=== PATIENT | female | born 1935 | race Caucasian/White ===

== ENCOUNTER 2017-01-14 09:40 | Emergency (ER) | payer MEDICARE, MEDICAID ==
[~2017-01-14] VITALS: Ht 165.1 cm; Wt 111.1 kg
[~2017-01-14 09:40] MED LIST: AMLODIPINE BES10 MG PO; BACTRIM DS 8001 TA1 PO; CIPRO 500MG TA500 MG PO; COUMADIN2.5 MG PO; DIAZEPAM5 M1 PO; FLAGYL 500MG.500 MG PO; FUROSEMIDE 20MG20 MG PO; GLIPIZIDE5 MG PO; HYDROCHLOROTHIA25 M1 PO; JANUVIA100 MG PO; LABETALOL200 MG PO; LEVOTHYROXINE0.1 MG PO; LISINOPRIL20 MG PO; MEDROL 4MG. DOSE4 MG PO; NIFEDICAL XL60 MG PO; OMEPRAZOLE20 MG PO; WARFARIN SODIUM3 MG PO; ZITHROMAX Z PA250 MG PO
--- OUTSIDE RECORDS SUMMARY | 2017-01-14 10:07 | External Medical Summary Rpt ---
Author Author , Organization [employer] Address Unknown Phone Unavailable Care Team Providers Care Wax Molder Name Role Phone A Joshua DUNN MD [facility], A Unavailable Unavailable Joshua DUNN MD P[facility], Unavailable Unavailable [facility], Unavailable Unavailable [facility], Unavailable Unavailable [facility] Unavailable Unavailable [facility], [facility] LEYDI ABDIRASHID, LEYDI ABDIRASHID Unavailable Unavailable SHANTELL HOLLEY, Unavailable Unavailable SHANTELL HOLLEY KIMBERLY V, Unavailable Unavailable MARÍA BALDERAS ROLANDO, Unavailable Unavailable ESTUARDO STEARNS [facility] Unavailable [facility], [facility] Unavailable Unavailable LAB, [facility] Unavailable Unavailable PSC, [facility] CROSSFIELD, DANNITA, Unavailable Unavailable CROSSFIELD, DANNITA SU [facility], Unavailable Unavailable SU N[facility], Unavailable Unavailable SU [facility] Unavailable Unavailable [facility] Unavailable Unavailable [facility], [facility] Unavailable Unavailable [facility] DO[facility] DI[facility] Unavailable Unavailable [facility], DOCTOR DI[facility], [facility] Unavailable Unavailable ANGELINE GUILLERMO, ANGELINE Unavailable Unavailable GUILLERMO NELSON NIÑO Unavailable Unavailable [facility] Un[facility], [facility] Unavailable Unavailable H[facility]PITAL P, [facility] P SABINA FAYE, Unavailable Unavailable SABINA FAYE CHARLES M, Unavailable Unavailable SON SHER KILPELA JEA, KILPELA Unavailable Unavailable JEA MOURA NEENA, MOURA Unavailable Unavailable NEENA MOURA NEENA, MOURA Unavailable Unavailable NEENA MYRNA WINTER E, Unavailable Unavailable MYRNA WINTER [facility] Unavailable [facility] Unavailable Unavailable [facility], [facility], Unavailable Unavailable [facility] MCKEMIE JR ANDREE, Unavailable Unavailable MCKEMIE JR ANDREE LITA RANDALL P, Unavailable Unavailable LITA RANDALL P JEFFREY ELLY, JEFFREY ELLY Unavailable Unavailable JEFFREY ELLY, JEFFREY ELLY Unavailable Unavailable [facility] Unavailable Unavailable PSC, [facility] PSC SARAH FIGUEROA, Unavailable Unavailable SARAH FIGUEROA DAVID J, Unavailable Unavailable [facility], Unavailable Unavailable [facility], [facility] & Unavailable Unavailable [facility], [facility], Unavailable Unavailable [facility], Unavailable Unavailable [facility] INDIO ABDIRASHID, INDIO Unavailable Unavailable ABDIRASHID [id number], Unavailable Unavailable [id number] Unavailable Unavailable [id number] [address] [id number], [facility] [id number] [address] [id number] [facility] Unavailable Unavailable 3938, [facility]38 SADEK, SADEK Unavailable Unavailable [facility]ART Unavailable Unavailable [facility] Unavailable Unavailable [facility] SOKAN, SHOSHANA O, Unavailable Unavailable SOKAN, SHOSHANA O [facility] Unavailable Unavailable [facility] LEXIE SERNA, Unavailable Unavailable LEXIE SERNA FREDDIE L, Unavailable Unavailable [facility] Un[facility], [facility] Unavailable Unavailable JAYLEN, A D, Unavailable Unavailable JAYLEN, A D Purpose Continuity of Care Document - 10-29-2007 through 2016 Problems Code Diagnosis DOS Provider Status E119 TYPE 2 08-11-2016 [facility] MELL[facility] WITHOUT COMPLICATIO NS N3000 ACUTE 08-11-2016 [facility] WITHOUT INC HEMATURIA N390 URINARY 08-11-2016 [facility], INFECTION [facility] SITE NOT SPECIFIED R319 HEMATURIA 08-11-2016 [facility] E1165 TYPE 2 04-22-2016 Sam DUNN DIABETES PSC MELLITUS WITH HYPERGLYCEM IA I10 ESSENTIAL 04-22-2016 Sam DUNN PRIMARY PSC HYPERTENSIO N Z5181 ENCOUNTER 04-22-2016 Sam DUNN FOR PSC THERAPEUTIC DRUG LEVEL MONITORING Z7901 GROUP HOME 04-22-2016 Sam DUNN CURRENT USE PSC OF ANTICOAGULA NTS E1149 TYPE 2 01-25-2016 A Joshua DUNN DIABETES PSC MELLITUS W/OTH DIAB NEURO COMP I482 CHRONIC 01-25-2016 A Joshua DUNN ATRIAL PSC FIBRILLATIO N E039 HYPOTHYROID 10-30-2015 A Joshua JONES MD PSC UNSPECIFIED V5869 LONG-TERM 04-28-2015 A Joshua DUNN (CURRENT) PSC USE OF OTHER MEDICATIONS V5883 ENCOUNTER 04-28-2015 A Joshua LEARY MD PSC THERAPEUTIC DRUG MONITORING 30788 DIAB W/O 04-14-2015 A Joshua DALTON MD PSC COMP TYPE II/UNS TYPE UNCNTRL 20587 DIAB W/O 03-30-2015 ALL COMP TYPE [facility] II/UNS NOT MEDICAL STATED UNCNTRL 29018 HYPERCALCEM 01-08-2015 [facility] P 90743 ABDOMINAL 01-08-2015 [facility] PAIN OTHER [facility] P SITE 84178 ABNORMAL 01-08-2015 [facility] COAGULATION [facility] P 7881 DYSURIA 08-25-2014 A Joshua DUNN MD PSC V5861 LONG-TERM 08-25-2014 A Joshua DUNN (CURRENT) PSC USE OF ANTICOAGULA NTS 72596 DIAB 09-27-2013 JEFFREY ELLY W/NEURO MANIFESTS TYPE II/UNS TYPE UNCNTRL 2720 PURE 09-27-2013 JEFFREY SANABRIA HYPERCHOLES TEROLEMIA 4011 ESSENTIAL 09-27-2013 JEFFREY SANABRIA HYPERTENSIO N, BENIGN 2449 UNSPECIFIED 05-30-2013 A Joshua DUNN MD PSC HYPOTHYROID ISM 17518 UNSPECIFIED 04-11-2013 MOURA NEENA INFECTIVE OTITIS EXTERNA 470 DEVIATED 04-11-2013 MOURA NEENA NASAL SEPTUM 92605 ATRIAL 11-29-2012 A Joshua DUNN FIBRILLNIKHILO PSC N 52318 DIVERTICULO 11-14-2012 SU SIS OF NANCY COLON 37217 DIVERTICULI 11-14-2012 [facility] TIS OF [facility] COLON INC 5718 OTHER 11-14-2012 SU CHRONIC NANCY NONALCOHOLI C LIVER DISEASE 5932 ACQUIRED 11-14-2012 SU CYST OF NANCY KIDNEY 96407 NUCLEAR 12-29-2011 DAT SCLEROSIS GRE 37942 UNSPECIFIED 12-29-2011 DAT SUBJECTIVE GRE VISUAL DISTURBANCE 63710 OTHER 12-29-2011 DAT VISUAL GRE DISTORTIONS AND ENTOPTIC PHENOMENA 42169 VAGINITIS&V 12-20-2011 JEFF[facility]Y ELLY ULVOVAGINIT IS DISEASES CLASS ELSW 33409 SECONDARY 11-22-2011 PODIATRIC LOCALIZED FOOT & OSTEOARTHRO ANKLE SPECI SIS LOWER LEG 87168 PAIN IN 11-22-2011 PODIATRIC JOINT, SITE FOOT & ANKLE SPECI UNSPECIFIED 79105 PAIN IN 11-22-2011 PODIATRIC JOINT, FOOT & LOWER LEG ANKLE SPECI 7291 UNSPECIFIED 11-22-2011 PODIATRIC MYALGIA FOOT & AND ANKLE SPECI MYOSITIS V0481 NEED 06-08-2011 A Joshua DUNN PROPHYLACTI PSC C VACCINATION &INOCULATIO N FLU 5999 UNSPECIFIED 05-31-2011 [facility] URETHRA&URI NARY TRACT 26306 URINARY 05-31-2011 [facility] 5990 URINARY 04-08-2011 A Joshua DUNN TRACT PSC INFECTION SITE NOT SPECIFIED V4365 KNEE JOINT 01-04-2011 [facility] BY OTHER MEDICAL MEANS [facility] 2724 OTHER AND 12-23-2010 A Joshua VEEIFIED PSC HYPERLIPIDE DANA 4019 UNSPECIFIED 12-23-2010 A Joshua DUNN ESSENTIAL PSC HYPERTENSIO N 5368 DYSPEPSIA&O 12-23-2010 A Joshua DUNN THER SPEC PSC DISORDERS FUNCTION STOMACH 1890 MALIGNANT 11-01-2010 NEW NEOPLASM OF [place] [facility] PSC EXCEPT PELVIS 7962 ELEVATED BP 09-09-2010 [facility] WITHOUT DX INC HYPERTENSIO N 72071 DIAB W/O 04-24-2010 [facility] COMP TYPE I MEDICAL [JUV] NOT SUPPLY STATED UNCNTRL 92457 DIVERTICULO 09-30-2009 [facility] [place] SIS OF RADIOLOGY SMALL INTESTINE 591 HYDRONEPHRO 09-30-2009 [facility]OLOG[facility] PSC 4280 CONGESTIVE 08-06-2009 [facility] P[facility] UNSPECIFIED 89608 OSTEOARTHRO 08-06-2009 [facility] UNSPEC L REHAB WHETHER ASSOC PSC GEN/LOC LOWER LEG 4168 OTHER 08-05-2009 NEW CHRONIC [place] [facility] HEART DISEASES 4660 ACUTE 07-29-2009 FIGUEROA, BRONCHITIS SARAH A 03661 HEMARTHROSI 03-27-2009 [facility] S, [facility] LEG INC 490 BRONCHITIS 02-24-2009 DAT NOT EMERGENCY SPECIFIED SERVICES ACUTE OR ASSOCIATES CHRONIC 00040 SHORTNESS 02-24-2009 [facility]ICAL IMAGING [facility] 7906 OTHER 01-13-2009 [facility] ABNORMAL [facility] BLOOD INC CHEMISTRY 04140 OTHER 12-09-2008 FAYE, VITREOUS SABINA A OPACITIES 5939 UNSPECIFIED 08-13-2008 [facility] [place] DISORDER RADIOLOGY OF KIDNEY AND URETER 58308 NOCTURIA 08-13-2008 [facility] H UROLOGY PSC 26233 URGENCY OF 08-13-2008 [facility] URINATION H UROLOGY PSC V4589 OTHER 08-13-2008 [facility] [place] POSTSURGICA RADIOLOGY L STATUS OTHER 18632 COR 02-07-2008 [facility] TYPE [facility] [place] T [address] CYSTITIS 02-07-2008 [facility] 69706 OTHER 02-07-2008 [facility] SPE[facility]IFIED PATHOLOGY TYPES OF ASSOCIATES CYSTITIS V1053 PERSONAL 02-07-2008 [facility] RENAL PELVIS 19051 CORONARY 01-30-2008 [facility] CORONARY PROF SERV ARTERY V1052 PERSONAL 01-23-2008 [facility] [place] HISTORY OF RADIOLOGY MALIGNANT NEOPLASM OF KIDNEY Allergies, Adverse Reactions, Alerts Type Allergy to substance Adverse Reaction to Substance Substance Reaction Severity NO KNOWN ALLERGIES Unknown Unknown Clinical Alert Notifications Alert Diabetes: no A1C in the last 6 months Diabetes: no eye exam in the last 365 days Diabetes: no influenza vaccine in the last 365 days Medications Na ND Rx Da Fi Fi Am Da Di Ph RX Ph St me C No te ll ll ou ys ag ar # ys at rm s nt no ma ic us Or Da si cy ia de te s n re d Le 51 03 0 No vo 07 -1 fl 90 3- Lo ox 03 20 ng ac 52 13 er in 0 Ac 50 ti 0M ve G Ta bl et Me 63 03 0 No tr 73 -1 on 90 3- Lo id 17 20 ng az 61 13 er ol 0 e Ac 50 ti 0M ve G Ta bl et AC 51 03 0 No ET 07 -1 AM 90 3- Lo IN 16 20 ng OP 19 13 er HE 9H N Ac W/ ti CO ve DE IN E #3 TA K DI 00 05 10 5 12 30 RI 88 MO Ac AZ 17 -0 -0 0. TE 20 SE ti EP 23 5- 9- 00 78 S ve AM [address] 5 67 11 11 D EP 0 PH HE MG AR N MA A TA CY BL ET 03 93 8 # 03 93 DI 00 05 09 5 12 30 RI 88 MO Ac AZ 17 -0 -0 0. TE 20 SE ti EP 23 5- 8- 00 78 S ve AM 92 [address] 5 67 11 11 D EP 0 PH HE MG AR N MA A TA CY BL ET 03 93 8 # 03 93 DI 00 05 08 5 12 30 RI 88 MO Ac AZ 17 -0 -0 0. TE 20 SE ti EP 23 5- 8- 00 78 S ve AM 92 [address] 5 67 11 11 D EP 0 PH HE MG AR N MA A TA CY BL ET 03 93 8 # 03 93 DI 00 05 07 5 12 30 RI 88 MO Ac AZ 17 -0 -0 0. TE 20 SE ti EP 23 5- 8- 00 78 S ve AM 92 [address] 5 67 11 11 D EP 0 PH HE MG AR N MA A TA CY BL ET 03 93 8 # 03 93 DI 00 05 06 5 12 30 RI 88 MO Ac AZ 17 -0 -0 0. TE 20 SE ti EP 23 5- 6- 00 78 S ve AM 92 [address] 5 67 11 11 D EP 0 PH HE MG AR N MA A TA CY BL ET 03 93 8 # 03 93 DI 00 05 05 5 12 30 RI 88 MO Ac AZ 17 -0 -0 0. TE 20 SE ti EP 23 5- 5- 00 78 S ve AM 92 [address] 5 67 11 11 D EP 0 PH HE MG AR N MA A TA CY BL ET 03 93 8 # 03 93 DI 00 04 04 60 15 RI 87 NI Ac AZ 17 -1 -2 .0 TE 97 CH ti EP 23 8- 0- 00 28 OL ve AM 92 20 20 AI S 5 67 11 11 D JENNIFER 0 PH E MG AR A MA TA CY BL ET 03 93 8 # 03 93 DI 00 04 04 60 15 RI 87 NI Ac AZ 17 -0 -0 .0 TE 77 CH ti EP 23 4- 5- 00 76 OL ve AM 92 20 20 AI S 5 67 11 11 D JENNIFER 0 PH E MG AR A MA TA CY BL ET 03 93 8 # 03 93 DI 00 03 03 60 15 RI 87 NI Ac AZ 17 -2 -2 .0 TE 60 CH ti EP 23 2- 2- 00 65 OL ve AM 92 20 20 AI S 5 67 11 11 D JENNIFER 0 PH E MG AR A MA TA CY BL ET 03 93 8 # 03 93 DI 00 03 03 60 15 RI 87 NI Ac AZ 17 -0 -0 .0 TE 37 CH ti EP 23 7- 8- 00 75 OL ve AM 92 20 20 AI S 5 67 11 11 D JENNIFER 0 PH E MG AR A MA TA CY BL ET 03 93 8 # 03 93 DI 00 02 02 60 15 RI 87 NI Ac AZ 17 -2 -2 .0 TE 17 CH ti EP 23 2- 2- 00 40 OL ve AM 92 20 20 AI S 5 67 11 11 D JENNIFER 0 PH E MG AR A MA TA CY BL ET 03 93 8 # 03 93 DI 00 02 02 60 15 RI 86 NI Ac AZ 17 -0 -0 .0 TE 95 CH ti EP 23 7- 7- 00 91 OL ve AM 92 20 20 AI S 5 67 11 11 D JENNIFER 0 PH E MG AR A MA TA CY BL ET 03 93 8 # 03 93 DI 00 01 01 60 15 RI 86 NI Ac AZ 17 -2 -2 .0 TE 76 CH ti EP 23 4- 4- 00 38 OL ve AM 92 20 20 AI S 5 67 11 11 D JENNIFER 0 PH E MG AR A MA TA CY BL ET 03 93 8 # 03 93 DI 00 01 01 60 15 RI 86 NI Ac AZ 17 -0 -1 .0 TE 55 CH ti EP 23 7- 0- 00 11 OL ve AM 92 20 20 AI S 5 67 11 11 D JENNIFER 0 PH E MG AR A MA TA CY BL ET 03 93 8 # 03 93 DI 00 12 12 60 15 RI 86 NI Ac AZ 17 -2 -2 .0 TE 38 CH ti EP 23 7- 7- 00 04 OL ve AM 92 20 20 AI S 5 67 10 10 D JENNIFER 0 PH E MG AR A MA TA CY BL ET 03 93 8 # 03 93 DI 00 12 12 60 15 RI 86 NI Ac AZ 17 -0 -0 .0 TE 12 CH ti EP 23 7- 7- 00 61 OL ve AM 92 20 20 AI S 5 67 10 10 D JENNIFER 0 PH E MG AR A MA TA CY BL ET 03 93 8 # 03 93 DI 00 11 11 60 15 RI 85 NI Ac AZ 17 -2 -2 .0 TE 93 CH ti EP 23 3- 3- 00 66 OL ve AM 92 20 20 AI S 5 67 10 10 D JENNIFER 0 PH E MG AR A MA TA CY BL ET 03 93 8 # 03 93 DI 00 11 11 60 15 RI 85 NI Ac AZ 17 -0 -0 .0 TE 74 CH ti EP 23 9- 9- 00 37 OL ve AM 92 20 20 AI S 5 67 10 10 D JENNIFER 0 PH E MG AR A MA TA CY BL ET 03 93 8 # 03 93 DI 00 10 10 60 15 RI 85 NI Ac AZ 17 -2 -2 .0 TE 52 CH ti EP 23 5- 5- 00 73 OL ve AM 92 20 20 AI S 5 67 10 10 D JENNIFER 0 PH E MG AR A MA TA CY BL ET 03 93 8 # 03 93 00 10 10 60 15 RI 85 NI Ac 55 -0 -0 .0 TE 32 CH ti 50 8- 8- 00 19 OL ve 36 20 20 AI S 30 10 10 D JENNIFER 2 PH E AR A MA CY 03 93 8 # 03 93 DI 00 09 09 60 15 RI 85 NI Ac AZ 17 -2 -2 .0 TE 13 CH ti EP 23 4- 4- 00 01 OL ve AM 92 20 20 AI S 5 67 10 10 D JENNIFER 0 PH E MG AR A MA TA CY BL ET 03 93 8 # 03 93 DI 00 09 09 60 15 RI 84 NI Ac AZ 17 -1 -1 .0 TE 92 CH ti EP 23 0- 0- 00 47 OL ve AM 92 20 20 AI S 5 67 10 10 D JENNIFER 0 PH E MG AR A MA TA CY BL ET 03 93 8 # 03 93 DI 00 08 08 60 15 RI 84 NI Ac AZ 17 -2 -2 .0 TE 67 CH ti EP 23 3- 3- 00 19 OL ve AM 92 20 20 AI S 5 67 10 10 D JENNIFER 0 PH E MG AR A MA TA CY BL ET 03 93 8 # 03 93 DI 00 08 08 60 15 RI 84 NI Ac AZ 17 -1 -1 .0 TE 50 CH ti EP 23 0- 0- 00 29 OL ve AM 92 20 20 AI S 5 67 10 10 D JENNIFER 0 PH E MG AR A MA TA CY BL ET 03 93 8 # 03 93 DI 00 07 07 60 15 RI 84 NI Ac AZ 17 -2 -2 .0 TE 32 CH ti EP 23 7- 7- 00 51 OL ve AM 92 20 20 AI S 5 67 10 10 D JENNIFER 0 PH E MG AR A MA TA CY BL ET 03 93 8 # 03 93 DI 00 07 07 60 15 RI 84 NI Ac AZ 17 -1 -1 .0 TE 16 CH ti EP 23 4- 4- 00 85 OL ve AM 92 20 20 AI S 5 67 10 10 D JENNIFER 0 PH E MG AR A MA TA CY BL ET 03 93 8 # 03 93 DI 00 06 06 60 15 RI 84 NI Ac AZ 17 -3 -3 .0 TE 00 CH ti EP 23 0- 0- 00 24 OL ve AM 92 20 20 AI S 5 67 10 10 D JENNIFER 0 PH E MG AR A MA TA CY BL ET 03 93 8 # 03 93 DI 00 06 06 60 15 RI 83 NI Ac AZ 17 -1 -1 .0 TE 80 CH ti EP 23 5- 5- 00 74 OL ve AM 92 20 20 AI S 5 67 10 10 D JENNIFER 0 PH E MG AR A MA TA CY BL ET 03 93 8 # 03 93 DI 00 06 06 60 15 RI 83 NI Ac AZ 17 -0 -0 .0 TE 61 CH ti EP 23 1- 1- 00 79 OL ve AM 92 20 20 AI S 5 67 10 10 D JENNIFER 0 PH E MG AR A MA TA CY BL ET 03 93 8 # 03 93 DI 00 05 05 60 15 RI 83 NI Ac AZ 17 -1 -1 .0 TE 41 CH ti EP 23 7- 7- 00 72 OL ve AM 92 20 20 AI S 5 67 10 10 D JENNIFER 0 PH E MG AR A MA TA CY BL ET 03 93 8 # 03 93 DI 00 05 05 60 15 RI 83 NI Ac AZ 17 -0 -0 .0 TE 22 CH ti EP 23 3- 3- 00 88 OL ve AM 92 20 20 AI S 5 67 10 10 D JENNIFER 0 PH E MG AR A MA TA CY BL ET 03 93 8 # 03 93 DI 00 04 04 60 15 RI 83 NI Ac AZ 17 -1 -1 .0 TE 02 CH ti EP 23 7- 7- 00 51 OL ve AM 92 20 20 AI S 5 67 10 10 D JENNIFER 0 PH E MG AR A MA TA CY BL ET 03 93 8 # 03 93 DI 00 04 04 60 15 RI 82 NI Ac AZ 17 -0 -0 .0 TE 81 CH ti EP 23 2- 2- 00 75 OL ve AM 92 20 20 AI S 5 67 10 10 D JENNIFER 0 PH E MG AR A MA TA CY BL ET 03 93 8 # 03 93 DI 00 03 03 60 15 RI 82 NI Ac AZ 17 -1 -1 .0 TE 61 CH ti EP 23 9- 9- 00 48 OL ve AM 92 20 20 AI S 5 67 10 10 D JENNIFER 0 PH E MG AR A MA TA CY BL ET 03 93 8 # 03 93 DI 00 03 03 60 15 RI 82 NI Ac AZ 17 -0 -0 .0 TE 37 CH ti EP 23 3- 3- 00 41 OL ve AM 92 20 20 AI S 5 67 10 10 D JENNIFER 0 PH E MG AR A MA TA CY BL ET 03 93 8 # 03 93 DI 00 02 02 00 60 15 RI 82 NI Ac AZ 17 -1 -2 .0 TE 17 CH ti EP 23 7- 6- 00 46 OL ve AM 92 20 20 AI S 5 67 10 10 D JENNIFER 0 PH E MG AR A M TA #3 BL 93 ET 8 DI 00 02 02 00 60 15 RI 81 NI Ac AZ 17 -0 -1 .0 TE 95 CH ti EP 23 1- 1- 00 85 OL ve AM 92 20 20 AI S 5 67 10 10 D JENNIFER 0 PH E MG AR A M TA #3 BL 93 ET 8 DI 00 01 01 00 60 15 RI 81 NI Ac AZ 17 -1 -2 .0 TE 76 CH ti EP 23 8- 8- 00 82 OL ve AM 92 20 20 AI S 5 67 10 10 D JENNIFER 0 PH E MG AR A M TA #3 BL 93 ET 8 DI 00 01 01 00 60 15 RI 81 NI Ac AZ 17 -0 -1 .0 TE 57 CH ti EP 23 4- 4- 00 16 OL ve AM 92 20 20 AI S 5 67 10 10 D JENNIFER 0 PH E MG AR A M TA #3 BL 93 ET 8 DI 00 12 12 00 60 15 RI 81 NI Ac AZ 17 -2 -3 .0 TE 40 CH ti EP 23 1- 1- 00 93 OL ve AM 92 20 20 AI S 5 67 09 09 D JENNIFER 0 PH E MG AR A M TA #3 BL 93 ET 8 DI 00 12 12 00 60 15 RI 81 NI Ac AZ 17 -0 -1 .0 TE 20 CH ti EP 23 7- 7- 00 69 OL ve AM 92 20 20 AI S 5 67 09 09 D JENNIFER 0 PH E MG AR A M TA #3 BL 93 ET 8 DI 00 11 12 00 60 15 RI 80 NI Ac AZ 17 -2 -0 .0 TE 99 CH ti EP 23 3- 3- 00 74 OL ve AM 92 20 20 AI S 5 67 09 09 D JENNIFER 0 PH E MG AR A M TA #3 BL 93 ET 8 DI 00 11 11 00 60 15 RI 80 NI Ac AZ 17 -0 -1 .0 TE 76 CH ti EP 23 7- 9- 00 27 OL ve AM 92 20 20 AI S 5 67 09 09 D JENNIFER 0 PH E MG AR A M TA #3 BL 93 ET 8 DI 00 10 11 00 60 15 RI 80 NI Ac AZ 17 -2 -0 .0 TE 55 CH ti EP 23 4- 5- 00 98 OL ve AM 92 20 20 AI S 5 67 09 09 D JENNIFER 0 PH E MG AR A M TA #3 BL 93 ET 8 DI 00 10 10 00 60 15 RI 80 NI Ac AZ 17 -0 -2 .0 TE 35 CH ti EP 23 9- 2- 00 02 OL ve AM 92 20 20 AI S 5 67 09 09 D JENNIFER 0 PH E MG AR A M TA #3 BL 93 ET 8 DI 00 09 10 00 60 15 RI 80 NI Ac AZ 17 -2 -0 .0 TE 15 CH ti EP 23 5- 8- 00 39 OL ve AM 92 20 20 AI S 5 67 09 09 D JENNIFER 0 PH E MG AR A M TA #3 BL 93 ET 8 DI 00 09 09 00 60 15 RI 79 NI Ac AZ 17 -0 -2 .0 TE 91 CH ti EP 23 9- 4- 00 05 OL ve AM 92 20 20 AI S 5 67 09 09 D JENNIFER 0 PH E MG AR A M TA #3 BL 93 ET 8 DI 00 08 09 00 60 15 RI 79 NI Ac AZ 17 -2 -1 .0 TE 72 CH ti EP 23 6- 0- 00 38 OL ve AM 92 20 20 AI S 5 67 09 09 D JENNIFER 0 PH E MG AR A M TA #3 BL 93 ET 8 DI 00 08 08 00 60 15 RI 79 NI Ac AZ 17 -1 -2 .0 TE 53 CH ti EP 23 2- 7- 00 18 OL ve AM 92 20 20 AI S 5 67 09 09 D JENNIFER 0 PH E MG AR A M TA #3 BL 93 ET 8 DI 00 07 08 00 60 15 RI 79 NI Ac AZ 17 -2 -1 .0 TE 36 CH ti EP 23 9- 3- 00 61 OL ve AM 92 20 20 AI S 5 67 09 09 D JENNIFER 0 PH E MG AR A M TA #3 BL 93 ET 8 DI 00 07 07 00 60 15 RI 79 NI Ac AZ 17 -1 -3 .0 TE 19 CH ti EP 23 5- 0- 00 99 OL ve AM 92 20 20 AI S 5 67 09 09 D JENNIFER 0 PH E MG AR A M TA #3 BL 93 ET 8 DI 00 07 07 00 60 15 RI 79 NI Ac AZ 17 -0 -1 .0 TE 02 CH ti EP 23 1- 6- 00 64 OL ve AM 92 20 20 AI S 5 67 09 09 D JENNIFER 0 PH E MG AR A M TA #3 BL 93 ET 8 DI 00 06 07 00 60 15 RI 78 NI Ac AZ 17 -1 -0 .0 TE 86 CH ti EP 23 7- 2- 00 48 OL ve AM 92 20 20 AI S 5 67 09 09 D JENNIFER 0 PH E MG AR A M TA #3 BL 93 ET 8 DI 00 06 06 00 60 15 RI 78 NI Ac AZ 17 -0 -1 .0 TE 64 CH ti EP 23 1- 8- 00 39 OL ve AM 92 20 20 AI S 5 67 09 09 D JENNIFER 0 PH E MG AR A M TA #3 BL 93 ET 8 DI 00 05 06 00 60 15 RI 78 NI Ac AZ 17 -1 -0 .0 TE 46 CH ti EP 23 8- 4- 00 12 OL ve AM 92 20 20 AI S 5 67 09 09 D JENNIFER 0 PH E MG AR A M TA #3 BL 93 ET 8 DI 00 05 05 00 60 15 RI 78 NI Ac AZ 17 -0 -2 .0 TE 26 CH ti EP 23 4- 1- 00 64 OL ve AM 92 20 20 AI S 5 67 09 09 D JENNIFER 0 PH E MG AR A M TA #3 BL 93 ET 8 DI 00 04 05 00 60 15 RI 78 NI Ac AZ 17 -2 -0 .0 TE 06 CH ti EP 23 0- 7- 00 54 OL ve AM 92 20 20 AI S 5 67 09 09 D JENNIFER 0 PH E MG AR A M TA #3 BL 93 ET 8 DI 00 04 04 00 60 15 RI 77 NI Ac AZ 17 -0 -2 .0 TE 88 CH ti EP 23 7- 3- 00 14 OL ve AM 92 20 20 AI S 5 67 09 09 D JENNIFER 0 PH E MG AR A M TA #3 BL 93 ET 8 DI 00 03 04 00 60 15 RI 77 NI Ac AZ 17 -2 -0 .0 TE 66 CH ti EP 23 3- 9- 00 30 OL ve AM 92 20 20 AI S 5 67 09 09 D JENNIFER 0 PH E MG AR A M TA #3 BL 93 ET 8 DI 00 03 03 00 60 15 RI 77 NI Ac AZ 17 -0 -1 .0 TE 39 CH ti EP 23 6- 2- 00 74 OL ve AM 92 20 20 AI S 5 67 09 09 D JENNIFER 0 PH E MG AR A M TA #3 BL 93 ET 8 DI 00 02 02 00 60 15 RI 77 NI Ac AZ 17 -1 -2 .0 TE 11 CH ti EP 23 6- 6- 00 47 OL ve AM 92 20 20 AI S 5 67 09 09 D JENNIFER 0 PH E MG AR A M TA #3 BL 93 ET 8 DI 00 02 02 00 60 15 RI 76 NI Ac AZ 17 -0 -1 .0 TE 91 CH ti EP 23 2- 2- 00 89 OL ve AM 92 20 20 AI S 5 67 09 09 D JENNIFER 0 PH E MG AR A M TA #3 BL 93 ET 8 DI 00 01 01 00 60 15 RI 76 NI Ac AZ 17 -2 -3 .0 TE 76 CH ti EP 23 0- 0- 00 47 OL ve AM 92 20 20 AI S 5 67 09 09 D JENNIFER 0 PH E MG AR A M TA #3 BL 93 ET 8 DI 00 01 01 00 60 15 RI 76 NI Ac AZ 17 -0 -1 .0 TE 55 CH ti EP 23 6- 5- 00 51 OL ve AM 92 20 20 AI S 5 67 09 09 D JENNIFER 0 PH E MG AR A M TA #3 BL 93 ET 8 DI 00 12 01 00 60 15 RI 76 NI Ac AZ 17 -2 -0 .0 TE 38 CH ti EP 23 3- 1- 00 32 OL ve AM 92 20 20 AI S 5 67 08 09 D JENNIFER 0 PH E MG AR A M TA #3 BL 93 ET 8 DI 00 12 12 00 60 15 RI 76 NI Ac AZ 17 -1 -1 .0 TE 19 CH ti EP 23 0- 8- 00 23 OL ve AM 92 20 20 AI S 5 67 08 08 D JENNIFER 0 PH E MG AR A M TA #3 BL 93 ET 8 DI 00 11 12 00 60 15 RI 75 NI Ac AZ 17 -2 -0 .0 TE 97 CH ti EP 23 5- 4- 00 02 OL ve AM 92 20 20 AI S 5 67 08 08 D JENNIFER 0 PH E MG AR A M TA #3 BL 93 ET 8 DI 00 11 11 00 60 15 RI 75 NI Ac AZ 17 -1 -2 .0 TE 77 CH ti EP 23 1- 0- 00 24 OL ve AM 92 20 20 AI S 5 67 08 08 D JENNIFER 0 PH E MG AR A M TA #3 BL 93 ET 8 DI 00 10 11 00 60 15 RI 75 NI Ac AZ 17 -2 -0 .0 TE 52 CH ti EP 23 4- 7- 00 84 OL ve AM 92 20 20 AI S 5 67 08 08 D JENNIFER 0 PH E MG AR A M TA #3 BL 93 ET 8 DI 00 10 10 00 60 15 RI 75 NI Ac AZ 17 -1 -2 .0 TE 36 CH ti EP 23 3- 3- 00 60 OL ve AM 92 20 20 AI S 5 67 08 08 D JENNIFER 0 PH E MG AR A M TA #3 BL 93 ET 8 DI 00 09 10 00 60 15 RI 75 NI Ac AZ 17 -2 -0 .0 TE 18 CH ti EP 23 9- 9- 00 05 OL ve AM 92 20 20 AI S 5 67 08 08 D JENNIFER 0 PH E MG AR A M TA #3 BL 93 ET 8 DI 00 09 09 00 60 15 RI 74 NI Ac AZ 17 -1 -2 .0 TE 96 CH ti EP 23 5- 6- 00 80 OL ve AM 92 20 20 AI S 5 67 08 08 D JENNIFER 0 PH E MG AR A M TA #3 BL 93 ET 8 DI 00 09 09 00 60 15 RI 74 NI Ac AZ 17 -0 -1 .0 TE 79 CH ti EP 23 2- 1- 00 44 OL ve AM 92 20 20 AI S 5 67 08 08 D JENNIFER 0 PH E MG AR A M TA #3 BL 93 ET 8 DI 00 08 08 00 60 15 RI 74 NI Ac AZ 17 -1 -2 .0 TE 57 CH ti EP 23 8- 8- 00 48 OL ve AM 92 20 20 AI S 5 67 08 08 D JENNIFER 0 PH E MG AR A M TA #3 BL 93 ET 8 DI 00 08 08 00 60 15 RI 74 NI Ac AZ 17 -0 -1 .0 TE 42 CH ti EP 23 5- 4- 00 15 OL ve AM 92 20 20 AI S 5 67 08 08 D JENNIFER 0 PH E MG AR A M TA #3 BL 93 ET 8 DI 00 07 08 00 60 15 RI 74 NI Ac AZ 17 -2 -0 .0 TE 24 CH ti EP 23 2- 1- 00 01 OL ve AM 92 20 20 AI S 5 67 08 08 D JENNIFER 0 PH E MG AR A M TA #3 BL 93 ET 8 DI 00 07 07 00 60 15 RI 74 NI Ac AZ 17 -0 -1 .0 TE 07 CH ti EP 23 9- 7- 00 13 OL ve AM 92 20 20 AI S 5 67 08 08 D JENNIFER 0 PH E MG AR A M TA #3 BL 93 ET 8 DI 00 06 07 00 60 20 RI 73 NI Ac AZ 17 -1 -0 .0 TE 75 CH ti EP 23 1- 3- 00 17 OL ve AM 92 20 20 AI S 5 67 08 08 D JENNIFER 0 PH E MG AR A M TA #3 BL 93 ET 8 DI 00 05 06 00 60 15 RI 73 NI Ac AZ 17 -2 -0 .0 TE 50 CH ti EP 23 8- 5- 00 74 OL ve AM 92 20 20 AI S 5 67 08 08 D JENNIFER 0 PH E MG AR A M TA #3 BL 93 ET 8 DI 00 05 05 00 60 15 RI 73 No Ac AZ 17 -1 -2 .0 TE 29 t ti EP 23 2- 2- 00 69 Av ve AM 92 20 20 AI ai 5 67 08 08 D la 0 PH bl MG AR e M TA #3 BL 93 ET 8 DI 00 04 05 00 60 15 RI 73 No Ac AZ 17 -2 -0 .0 TE 07 t ti EP 23 8- 8- 00 46 Av ve AM 92 20 20 AI ai 5 67 08 08 D la 0 PH bl MG AR e M TA #3 BL 93 ET 8 DI 00 04 04 00 60 15 RI 72 No Ac AZ 17 -1 -2 .0 TE 89 t ti EP 23 4- 4- 00 05 Av ve AM 92 20 20 AI ai 5 67 08 08 D la 0 PH bl MG AR e M TA #3 BL 93 ET 8 DI 00 03 04 00 60 15 RI 72 No Ac AZ 17 -1 -1 .0 TE 47 t ti EP 23 7- 7- 00 46 Av ve AM 92 20 20 AI ai 5 67 08 08 D la 0 PH bl MG AR e M TA #3 BL 93 ET 8 DI 00 03 04 00 60 15 RI 72 No Ac AZ 17 -3 -1 .0 TE 67 t ti EP 23 1- 0- 00 82 Av ve AM 92 20 20 AI ai 5 67 08 08 D la 0 PH bl MG AR e M TA #3 BL 93 ET 8 LO 00 03 04 00 30 30 RI 72 No Ac RA 78 -2 -1 .0 TE 58 t ti TA 15 4- 0- 00 42 Av ve DI 07 20 20 AI ai NE 70 08 08 D la 1 PH bl 10 AR e M MG #3 93 TA 8 BL ET DI 00 03 04 00 60 15 RI 72 No Ac AZ 17 -0 -0 .0 TE 26 t ti EP 23 3- 7- 00 35 Av ve AM 92 20 20 AI ai 5 67 08 08 D la 0 PH bl MG AR e M TA #3 BL 93 ET 8 LO 00 02 03 00 30 30 RI 71 No Ac RA 78 -0 -2 .0 TE 78 t ti TA 15 1- 6- 00 79 Av ve DI 07 20 20 AI ai NE 70 08 08 D la 1 PH bl 10 AR e M MG #3 93 TA 8 BL ET DI 00 02 03 00 60 15 RI 71 No Ac AZ 17 -0 -2 .0 TE 85 t ti EP 23 5- 6- 00 24 Av ve AM 92 20 20 AI ai 5 67 08 08 D la 0 PH bl MG AR e M TA #3 BL 93 ET 8 DI 00 01 03 00 60 15 RI 71 No Ac AZ 17 -2 -2 .0 TE 61 t ti EP 23 2- 5- 00 46 Av ve AM 92 20 20 AI ai 5 67 08 08 D la 0 PH bl MG AR e M TA #3 BL 93 ET 8 DI 00 01 03 00 60 15 RI 71 No Ac AZ 17 -0 -2 .0 TE 39 t ti EP 23 8- 4- 00 95 Av ve AM 92 20 20 AI ai 5 67 08 08 D la 0 PH bl MG AR e M TA #3 BL 93 ET 8 Immunization Name Date Route CVX Reacti Commen Provid Is Given on t er Refuse d IIV 135 INDIO No VACCIN 2010 ABDIRASHID E PRESER V FREE INCREA SED AG CONTEN T IM Vital Signs 11-14-2012 20:14 Name Value Interpretat Reference Comment ion Range BP 111 mm[Hg] Diastolic BP Systolic 159 mm[Hg] Heart 90 /min Rate/Pulse O2% 95 % Respiratory 20 /min Rate 11-14-2012 18:51 Name Value Interpretat Reference Comment ion Range BP 105 mm[Hg] Diastolic BP Systolic 198 mm[Hg] Heart 94 /min Rate/Pulse O2% 95 % Respiratory 18 /min Rate Results Labs Lab Lab Date Result Refere Interp Status Commen Order Detail nces retati t Range on COMPREHENSIVE METABOLIC PANEL (11-14-2012 18:10) Glucose 193 74-106 complet 013 mg/dL ed Bld-mCn 18:10 c BUN 11-14- 16 7-18 complet Bld-mCn 013 mg/dL ed c 18:10 Creat 1.3 0.6-1.0 complet SerPl-m 013 mg/dL ed Cnc 18:10 ESTIMAT 66 50-200 complet ED 013 ML/MIN ed CREATIN 18:10 INE CLEARAN CE GFR 40 59- complet (ESTIMA 013 ML/MIN ed ELY) 18:10 Sodium 140 136-145 complet SerPl-s 013 mmoL/L ed Cnc 18:10 Potassi 3.6 3.5-5.1 complet um 013 mmoL/L ed SerPl-s 18:10 Cnc Chlorid 101 98-107 complet e 013 mmoL/L ed SerPl-s 18:10 Cnc CO2 29 21.0-32 complet SerPl-s 013 mmoL/L .0 ed Cnc 18:10 Calcium 11.0 8.5-10. complet 013 mg/dL 1 ed SerPl-m 18:10 Cnc Prot 7.5 6.4-8.2 complet SerPl-m 013 gm/dL ed Cnc 18:10 Albumin 3.4 3.4-5.0 complet 013 gm/dL ed SerPl-m 18:10 Cnc Globuli 4.1 1.3-3.2 complet n 013 gm/dL ed Ser-mCn 18:10 c Albumin 0.8 UNK 1.1-1.8 complet /Glob 013 ed SerPl-m 18:10 Rto Bilirub 11-14- 0.2 0.2-1.0 complet 013 mg/dL ed SerPl-m 18:10 Cnc AST 24 U/L 15-37 complet SerPl-c 013 ed Cnc 18:10 ALT 11-14- 47 U/L 30-65 complet SerPl-c 013 ed Cnc 18:10 ALP 81 U/L 50-136 complet SerPl-c 013 ed Cnc 18:10 Amylase SerPl-cCnc (11-14-2012 18:10) Amylase 24 U/L 25-115 complet 013 ed SerPl-c 18:10 Cnc LIPASE (11-14-2012 18:10) LIPASE 106 U/L 73-393 complet 013 ed 18:10 PROTIME/INR (11-14-2012 18:10) PROTHRO 11-14-2 16.4 9.8-11. complet MBIN 013 SECONDS 0 ed TIME 18:10 INR Bld 2 1.58 0.9-1.1 complet 013 UNK ed 18:10 CBC with AUTO DIFF (11-14-2012 18:10) WBC # 11-14-2 9.7 4.8-10. complet Bld 013 K/MM3 8 ed Auto 18:10 RBC # 11-14-2 4.68 4.2-5.4 complet Bld 013 M/mm3 ed Auto 18:10 Hgb 11-14-2 15.3 12.2-16 complet Bld-mCn 013 g/dL .2 ed c 18:10 Hct Fr 2 45.4 % 37.0-47 complet Bld 013 .0 ed 18:10 MCV RBC 11-14-2 97.1 fl 82.2-97 complet 013 .8 ed 18:10 MCH RBC 11-14-2 32.6 pg 27-31.2 complet Qn 013 ed Auto 18:10 MEAN 11-14-2 33.6 31.8-35 complet CORPUSC 013 g/dl .4 ed ULAR 18:10 HGB CONC RDW RBC 11-14-2 13.6 % 11.5-17 complet Auto 013 .5 ed 18:10 Platele 11-14-2 302 142-424 complet t Bld 013 K/mm3 ed Ql 18:10 Manual MEAN 11-14-2 7.9 fl 7.4-10. complet PLATELE 013 4 ed T 18:10 VOLUME Granulo 11-14-2 68.6 % 37.0-80 complet cytes 013 .0 ed Fr Bld 18:10 Auto LYMPH % 11-14-2 21.0 % 10-50.0 complet 013 ed 18:10 Monocyt 11-14-2 7.2 % 1.7-9.3 complet es Fr 013 ed Bld 18:10 Auto Eosinop 03-13-2 2.6 % 0.1-12. complet hil Fr 013 0 ed Bld 18:10 Auto Basophi 03-13-2 0.5 % 0.1-2.0 complet ls Fr 013 ed Bld 18:10 Auto Granulo 03-13-2 6.7 1.8-7.8 complet cytes # 013 K/mm3 ed Bld 18:10 Auto Lymphoc 03-13-2 2.1 0.7-4.5 complet ytes Fr 013 K/mm3 ed Bld 18:10 Auto Monocyt 03-13-2 0.7 0.1-1.0 complet es # 013 K/mm3 ed Bld 18:10 Auto Eosinop 03-13-2 0.3 0.0-0.4 complet hil # 013 K/mm3 ed Bld 18:10 Auto Basophi 03-13-2 0.1 0-0.2 complet ls # 013 K/MM3 ed Bld 18:10 Auto URINALYSIS/COMPLETE (11-14-2012 18:05) URINE 03-13-2 YELLOW YELLOW complet COLOR 013 ed 18:05 URINE 03-13-2 CLEAR CLEAR complet APPEARA 013 ed NCE 18:05 URINE 03-13-2 NEGATIV NEG complet GLUCOSE 013 E ed - 18:05 DIPSTIC K URINE 03-13-2 NEGATIV NEG complet BILIRUB 013 E ed IN - 18:05 DIPSTIC K URINE 03-13-2 NEGATIV NEG complet KETONE 013 E mg/dL ed 18:05 URINE 03-13-2 1.025 1.005-1 complet SPECIFI 013 UNK .030 ed C 18:05 GRAVITY URINE 03-13-2 NEGATIV NEG complet BLOOD 013 E ed 18:05 URINE 03-13-2 6.0 UNK 5.0-8.5 complet PH 013 ed 18:05 URINE 03-13-2 NEGATIV NEG complet PROTEIN 013 E mg/dL ed - 18:05 DIPSTIC K URINE 03-13-2 0.2 NEG complet UROBILI 013 E.U./dL ed NOGEN - 18:05 DIPSTIC K URINE 03-13-2 NEGATIV NEG complet NITRATE 013 E ed - 18:05 DIPSTIC K URINE 03-13-2 NEGATIV NEG complet LEUK 013 E ed ESTERAS 18:05 E URINE 03-13-2 OCC 0-5 complet SQUAMOU 013 #/hpf ed S CELLS 18:05 URINE TRACE O complet BACTERI 013 ed A 18:05 Procedures Procedure DOS Code Location Performer Comment CULTURE 21677 [facility] W[facility] BACTERIAL [facility] INC INC QUANTTATI VE COLONY COUNT URINE CULTURE 49315 W[facility]TON WILTON BCT 6 [facility] ISOL&PRSM INC INC PTV ID ISOLATE EA URINE SUSCEPTIB 57618 WILTONKAREN NÚÑEZ LTY STDY 6 [facility] ANTIMICRB INC INC IAL MICRO/AGA R DILUTJ URNLS DIP 40011 WILTON NÚÑEZ 6 [facility] STICK/TAB INC INC LET REAGENT AUTO MICROSCOP Y LIPID 82698 A Joshua DAMON PANEL 6 SHAUN CAMERON [facility] HEMOGLOBI 47467 A Joshua DAMON N 6 SHAUN CAMERON GLYCOSYLSam PSC ELY A1C PROTHROMB 41144 A Joshua DAMON IN TIME 6 SHAUN CAMERON PSC PROTHROMB 93247 A Joshua SANABRIA IN TIME 6 SHAUN COOK [facility] HEMOGLOBI 83969 A Joshua SANABRIA N 6 SHAUN SU PSC ELY A1C LANCETS A4259 ALL ALL PER BOX 6 TURKS AND CAICOS ISLANDER TURKS AND CAICOS ISLANDER OF [facility] MEDICAL MEDICAL BLD GLU A4253 ALL ALL TEST/REAG 6 TURKS AND [place] ISLANDER TURKS AND CAICOS ISLANDER T [facility] BLD GLU MON-50 NORMAL A4256 ALL ALL LOW AND 6 TURKS AND [place] ISLANDER TURKS AND [employer] ISLANDER HIGH MEDICAL MEDICAL CALIBRATO R SOLUTION/ [facility] HOME E0607 ALL ALL BLOOD 6 TURKS AND [place] ISLANDER TURKS AND CA[employer] ISLANDER GLUCOSE MEDICAL MEDICAL MONITOR PROTHROMB 48251 A Joshua SANABRIA IN TIME 6 SHAUN COOK [facility] HEMOGLOBI 07049 A Joshua MURPHY ELLY N 6 SHAUN COOK GLYCOSYLSam PSC ELY A1C LANCETS A4259 ALL ALL PER BOX 6 TURKS AND CAIC[place] ISLANDER TURKS AND CAICOS ISLANDER OF [facility] MEDICAL MEDICAL NORMAL A4256 ALL ALL LOW AND 6 TURKS AND [place] ISLANDER TURKS AND CAICOS ISLANDER HIGH MEDICAL MEDICAL CALIBRATO R SOLUTION/ [facility]IPS BLD GLU A4253 ALL ALL TEST/REAG 6 TURKS AND CA[place] ISLANDER TURKS AND CAICOS ISLANDER T [facility] BLD GLU MON-50 [facility] A4258 ALL ALL WERED 6 TURKS AND CAIC[place] ISLANDER TURKS AND CAICOS ISLANDER DEVICE MEDICAL MEDICAL FOR LANCET EACH REPL GEM A4233 ALL ALL ALKALINE 6 TURKS AND [place] ISLANDER TURKS AND CAICOS ISLANDER NOT J MEDICAL MEDICAL CELL GIANNA BG MON OWND PT BLD GLU A4253 ALL ALL TEST/REAG 5 TURKS AND CA[place] ISLANDER TURKS AND CAICOS ISLANDER T [facility] BLD GLU MON-50 NORMAL A4256 ALL ALL LOW AND 5 TURKS AND CAIC[place] ISLANDER TURKS AND CAICOS ISLANDER HIGH MEDICAL MEDICAL CALIBRATO R SOLUTION/ CHIPS LANCETS A4259 ALL ALL PER BOX 5 T[place] AND [place] [address] MEDICAL MEDICAL LANCETS A4259 ALL ALL PER BOX 5 TURKS AND [place]LANDER [place] [address] MEDICAL MEDICAL NORMAL A4256 ALL ALL LOW AND 5 TURKS AND CAIC[employer] ISLANDER TURKS AND CAICOS ISLANDER HIGH MEDICAL MEDICAL CALIBRATO R SOLUTION/ [facility]IPS BLD GLU A4253 ALL ALL TEST/REAG 5 TURKS AND CAICOS ISLANDER TURKS AND CAICOS ISLANDER T [facility] BLD GLU MON-50 REPL GEM A4233 ALL ALL ALKALINE 5 TURKS AND CAICOS ISLANDER TURKS AND CAICOS ISLANDER NOT J MEDICAL MEDICAL CELL GIANNA BG MON OWND PT SPRING-PO A4258 ALL ALL WERED 5 TURKS AND CAIC[place] ISLANDER TURKS AND CAICOS ISLANDER DEVICE MEDICAL MEDICAL FOR LANCET EACH BLD GLU A4253 ALL ALL TEST/REAG 5 TURKS AND CAICOS ISLANDER TURKS AND CAICOS ISLANDER T [facility] BLD GLU MON-50 LANCETS A4259 ALL ALL PER BOX 5 TURKS AND [place]LANDER [place] [address] MEDICAL MEDICAL NORMAL A4256 ALL ALL LOW AND 5 TURKS AND CAIC[place] ISLANDER TURKS AND CAICOS ISLANDER HIGH MEDICAL MEDICAL CALIBRATO R SOLUTION/ [facility] NORMAL A4256 ALL ALL LOW AND 4 TURKS AND [place] ISLANDER TURKS AND CAICOS ISLANDER HIGH MEDICAL MEDICAL CALIBRATO SUPPLIE SUPPLIE R SOLUTION/ [facility]IPS LANCETS A4259 ALL ALL PER BOX 4 TURKS AND CAICOS ISLANDER TURKS AND CAICOS ISLANDER [facility] MEDICAL MEDICAL SUPPLIE SUPPLIE BLD GLU A4253 ALL ALL TEST/REAG 4 TURKS AND CAICOS ISLANDER TURKS AND CAICOS ISLANDER T [facility] BLD SUPPLIE SUPPLIE GLU MON-50 SPRING-PO A4258 ALL ALL WERED 4 TURKS AND CAICOS ISLANDER TURKS AND CAICOS ISLANDER DEVICE MEDICAL MEDICAL FOR SUPPLIE SUPPLIE LANCET EACH REPL GEM A4233 ALL ALL ALKALINE 4 TURKS AND CAICOS ISLANDER TURKS AND CAICOS ISLANDER NOT J MEDICAL MEDICAL CELL GIANNA SUPPLIE SUPPLIE BG MON OWND PT BLD GLU A4253 ALL ALL TEST/REAG 4 TURKS AND CAIC[place] ISLANDER TURKS AND CAICOS ISLANDER T [facility] BLD SUPPLIE SUPPLIE GLU MON-50 NORMAL A4256 ALL ALL LOW AND 4 [facility] MEDICAL MEDICAL CALIBRATO SUPPLIE SUPPLIE R SOLUTION/ [facility]IPS LANCETS A4259 ALL ALL PER BOX 4 [place] [address] MEDICAL MEDICAL SUPPLIE SUPPLIE NORMAL A4256 ALL ALL LOW AND 4 [facility] MEDICAL CALIBRATO SUPPLIE SUPPLIE R SOLUTION/ [facility]IPS LANCETS A4259 ALL ALL PER BOX 4 [place] [address] MEDICAL MEDICAL SUPPLIE SUPPLIE BLD GLU A4253 ALL ALL TEST/REAG 4 TURKS AND CAICOS ISLANDER TURKS AND CAICOS ISLANDER T [facility] BLD SUPPLIE SUPPLIE GLU MON-50 REPL GEM A4233 ALL ALL ALKALINE 4 TURKS AND CAICOS ISLANDER TURKS AND CAICOS ISLANDER NOT J MEDICAL MEDICAL CELL GIANNA SUPPLIE SUPPLIE BG MON OWND PT SPRING-PO A4258 ALL ALL WERED 4 TURKS AND CAICOS ISLANDER TURKS AND CAICOS ISLANDER DEVICE MEDICAL MEDICAL FOR SUPPLIE SUPPLIE LANCET EACH BLD GLU A4253 ALL ALL TEST/REAG 4 TURKS AND CAICOS ISLANDER TURKS AND CAICOS ISLANDER T [facility] BLD SUPPLIE SUPPLIE GLU MON-50 LANCETS A4259 ALL ALL PER BOX 4 [place] [address] MEDICAL MEDICAL SUPPLIE SUPPLIE NORMAL A4256 ALL ALL LOW AND 4 [facility] MEDICAL CALIBRATO SUPPLIE SUPPLIE R SOLUTION/ [facility]IPS NORMAL A4256 ALL ALL LOW AND 3 [facility] MEDICAL MEDICAL CALIBRATO SUPPLIE SUPPLIE R SOLUTION/ [facility]IPS BLD GLU A4253 ALL ALL TEST/REAG 3 TURKS AND CA[place] ISLANDER TURKS AND CAICOS ISLANDER T [facility] BLD SUPPLIE SUPPLIE GLU MON-50 LANCETS A4259 ALL ALL PER BOX 3 [place] [address] MEDICAL MEDICAL SUPPLIE SUPPLIE SPRING-PO A4258 ALL ALL WERED 3 TURKS AND CAICOS ISLANDER TURKS AND CAICOS ISLANDER DEVICE MEDICAL MEDICAL FOR SUPPLIE SUPPLIE LANCET EACH REPL GEM A4233 ALL ALL ALKALINE 3 TURKS AND CAICOS ISLANDER TURKS AND CAICOS ISLANDER NOT J MEDICAL MEDICAL CELL GIANNA SUPPLIE SUPPLIE BG MON OWND PT LANCETS A4259 ALL ALL PER BOX 3 [place] [address] MEDICAL MEDICAL SUPPLIE SUPPLIE BLD GLU A4253 ALL ALL TEST/REAG 3 TURKS AND CAICOS ISLANDER TURKS AND CAICOS ISLANDER T [facility] BLD SUPPLIE SUPPLIE GLU MON-50 NORMAL A4256 ALL ALL LOW AND 3 TURKS AND CAICOS ISLANDER [facility] CALIBRATO SUPPLIE SUPPLIE R SOLUTION/ CHIPS URINLS 70389 A C A C DIP 3 SHAUN DUNN MD STICK/TAB PSC PSC LET REAGNT NON-AUTO MICRSCPY [facility] A4258 US US WERED 3 HEALTHCAR HEALTHCAR DEVICE E SUPPLY E SUPPLY FOR LLC LLC LANCET EACH NORMAL A4256 DOCTOR DOCTOR LOW AND 3 DIABETIC DIABETIC HIGH SUPPLY SUPPLY CALIBRATO LLC LLC R SOLUTION/ CHIPS BLD GLU A4253 DOCTOR DOCTOR TEST/REAG 3 DIABETIC DIABETIC T [facility] SUPPLY SUPPLY HOME BLD LLC LLC GLU MON-50 LANCETS A4259 DOCTOR DOCTOR PER BOX 3 DIABETIC DIABETIC OF 100 SUPPLY SUPPLY LLC LLC BLOOD 19050 WILTON NÚÑEZ COUNT 3 [facility] COMPLETE INC INC AUTO&AUTO DIFRNTL WBC URNLS DIP 00439 WILTON NÚÑEZ 3 [facility] STICK/TAB INC INC [place] [address] WILTON NÚÑEZ LIPASE 3 [facility] INC INC PROTHROMB 71286 WILTON NÚÑEZ IN TIME 3 [facility] INC INC COMPREHEN 02443 WILTON NÚÑEZ SIVE 3 [facility] [address] WILTON NÚÑEZ AMYLASE 3 [place] [address] SU SU ABDOMEN & 3 NANCY NANCY PELVIS W/O CONTRAST MATERIAL 3D 33553 SU SU RENDERING 3 NANCY NANCY W/INTERP& POSTPROC DIFF WORK STATION [facility] A4258 SMART SMART WERED 3 REMEDIES REMEDIES DEVICE FOR LANCET EACH BLD GLU A4253 SMART SMART TEST/REAG 3 REMEDIES REMEDIES T [facility] HOME BLD GLU MON-50 LANCETS A4259 SMART SMART PER BOX 3 REMEDIES REMEDIES OF 100 NORMAL A4256 SMART SMART LOW AND 3 REMEDIES REMEDIES HIGH CALIBRATO R SOLUTION/ CHIPS LANCETS A4259 DOCTOR DOCTOR PER BOX 2 DI[facility]ET[facility] DIABETIC OF 100 SUPPLY SUPPLY LLC LLC NORMAL A4256 DOCTOR DOCTOR LOW AND 2 DIABETIC DIABETIC HIGH SUPPLY SUPPLY CALIBRATO LLC LLC R SOLUTION/ CHIPS BLD GLU A4253 DOCTOR DOCTOR TEST/REAG 2 DIABETIC DIABETIC T [facility] SUPPLY SUPPLY HOME BLD LLC LLC GLU MON-50 BLD GLU A4253 SMART SMART TEST/REAG 2 REMEDIES REMEDIES T [facility] HOME BLD GLU MON-50 NORMAL A4256 SMART SMART LOW AND 2 REMEDIES REMEDIES HIGH CALIBRATO R SOLUTION/ CHIPS LANCETS A4259 SMART SMART PER BOX 2 REMEDIES REMEDIES OF 100 LANCETS A4259 DOCTOR DOCTOR PER BOX 2 DIABETIC DIABETIC OF 100 SUPPLY SUPPLY LLC LLC NORMAL A4256 DOCTOR DOCTOR LOW AND 2 DIABETIC DIABETIC HIGH SUPPLY SUPPLY CALIBRATO LLC LLC R SOLUTION/ CHIPS BLD GLU A4253 DOCTOR DOCTOR TEST/REAG 2 DIABETIC DIABETIC T [facility] SUPPLY SUPPLY HOME BLD LLC LLC GLU MON- XTRNL ECG 11433 WILTON NÚÑEZ & 48 HR 2 [facility] RECORDING INC INC EXTERNAL 51193 WILTON NÚÑEZ ECG 2 [facility] SCANNING INC INC ANALYSIS REPORT XTRNL ECG 92310 EROSKEMIE MCKEMIE 2 JR ANDREE JR ANDREE CONTINUOU S RHYTHM W/I&R UP TO 48 HRS BLD GLU A4253 SMART SMART TEST/REAG 2 REMEDIES REMEDIES T [facility] HOME BLD GLU MON-50 NORMAL A4256 SMART SMART LOW AND 2 REMEDIES REMEDIES HIGH CALIBRATO R SOLUTION/ CHIPS LANCETS A4259 SMART SMART PER BOX 2 REMEDIES REMEDIES OF 100 LANCETS A4259 DOCTOR DOCTOR PER BOX 2 DIABETIC DIABETIC OF 100 SUPPLY SUPPLY LLC LLC NORMAL A4256 DOCTOR DOCTOR LOW AND 2 DIABETIC DIABETIC HIGH SUPPLY SUPPLY CALIBRATO LLC LLC R SOLUTION/ CHIPS BLD GLU A4253 DOCTOR DOCTOR TEST/REAG 2 DIABETIC DIABETIC T [facility] SUPPLY SUPPLY HOME BLD LLC LLC GLU MON-50 BLD GLU A4253 SMART SMART TEST/REAG 2 REMEDIES REMEDIES T [facility] HOME BLD GLU MON-50 NORMAL A4256 SMART SMART LOW AND 2 REMEDIES REMEDIES HIGH CALIBRATO R SOLUTION/ CHIPS LANCETS A4259 SMART SMART PER BOX 2 REMEDIES REMEDIES OF 100 [place]-PO A4258 SMART SMART WERED 2 REMEDIES REMEDIES DEVICE FOR LANCET EACH REPL GEM A4235 DOCTOR DOCTOR LITHIUM 2 DIABETIC DIABETIC MED NECES SUPPLY SUPPLY GIANNA BG LLC LLC MON OWN PT EA [facility] A4258 DOCTOR DOCTOR WERED 2 DIABETIC DIABETIC DEVICE SUPPLY SUPPLY FOR LLC LLC LANCET EACH LANCETS A4259 DOCTOR DOCTOR PER BOX 2 DIABETIC DIABETIC OF 100 SUPPLY SUPPLY LLC LLC NORMAL A4256 DOCTOR DOCTOR LOW AND 2 DIABETIC DIABETIC HIGH SUPPLY SUPPLY CALIBRATO LLC LLC R SOLUTION/ CHIPS BLD GLU A4253 DOCTOR DOCTOR TEST/REAG 2 DIABETIC DIABETIC T [facility] SUPPLY SUPPLY HOME BLD LLC LLC GLU MON-50 RADEX 25962 PODIATRIC [place] SPINE 2 FOOT & LUMBOSACR ANKLE AL 2/3 SPECI VIEWS ECG 53671 PODIATRIC LEYDI ABDIRASHID ROUTINE 2 FOOT & ECG ANKLE W/LEAST SPECI 12 LDS W/I&R ECG 30518 WILTON NÚÑEZ ROUTINE 2 [facility] ECG INC INC W/LEAST 12 LDS TRCG ONLY W/O I&R BLD GLU A4253 DOCTOR DOCTOR TEST/REAG 2 DIABETIC DIABETIC T [facility] SUPPLY [facility]PPLY HOME [facility]LD [facility] LLC GLU MON-50 NORMAL A4256 DOCTOR DOCTOR LOW AND 2 DIABETIC DIABETIC HIGH SUPPLY SUPPLY CALIBRATO LLC LLC R SOLUTION/ CHIPS LANCETS A4259 DOCTOR DOCTOR PER BOX 2 DIABETIC DIABETIC OF 100 SUPPLY SUPPLY LLC LLC [facility] A4258 DOCTOR DOCTOR WERED 1 DIABETIC DIABETIC DEVICE SUPPLY SUPPLY FOR LLC LLC LANCET EACH IIV 46330 A C INDIO VACCINE 1 SHAUN COOK [facility] PRESERV PSC FREE INCREASED AG CONTENT IM ADMINISTR G0008 A C INDIO ATION OF 1 SHAUN COOK [facility] INFLUENZA PSC VIRUS VACCINE CULTURE 23709 [facility] BCT 1 DIAGNOSTI DIAGNOSTI ISOL&PRSM CS CS PTV ID ISOLATE EA URINE CULTURE 47893 [facility] BACTERIAL 1 DIAGNOSTI DIAGNOSTI CS CS QUANTTATI VE COLONY COUNT URINE PROTHROMB 16388 A C A C IN TIME 1 SHAUN DUNN MD PSC PSC URINLS 25269 A C INDIO DIP 1 SHAUN COOK ABDIRASHID STICK/TAB PSC LET REAGNT NON-AUTO MICRSCPY COLLECTIO 38871 A C INDIO N VENOUS 1 SHAUN COOK ABDIRASHID BLOOD PSC VENIPUNCT URE ECG 48250 WILTON NÚÑEZ ROUTINE 1 [facility] ECG INC INC W/LEAST 12 LDS TRCG ONLY W/O I&R COLLECTIO 60519 A C INDIO N VENOUS 1 SHAUN COOK [facility] BLOOD PSC VENIPUNCT URE URINLS 38918 A C INDIO DIP 1 SHAUN COOK ABDIRASHID STICK/TAB PSC LET REAGNT NON-AUTO MICRSCPY PROTHROMB 59909 A C A C IN TIME 1 SHAUN DUNN MD [facility] PSC PROTHROMB 62964 A C JEFFREY ELLY IN TIME 1 SHAUN COOK PSC COLLECTIO 00858 A C JEFFREY ELLY N VENOUS 1 SHAUN COOK BLOOD PSC VENIPUNCT URE WALKER E0143 [place] 1 HOME HOME WHEELED MEDICAL MEDICAL ADJUSTABL EQUIP EQUIP E/FIXED HEIGHT PROTHROMB 21053 WILTON NÚÑEZ IN TIME 1 [facility] INC INC COLLECTIO 72435 WILTON NÚÑEZ N VENOUS 1 [facility] BLOOD INC INC VENIPUNCT URE BLD GLU A4253 [facility] LIB[facility] TEST/REAG 1 MEDICAL MEDICAL T [facility] SUPPLY SUPPLY HOME BLD GLU MON-50 NORMAL A4256 [facility]ERTY LOW AND 1 MEDICAL MEDICAL HIGH SUPPLY SUPPLY CALIBRATO R SOLUTION/ [facility]IPS LANCETS A4259 LIBERTY LIBERTY PER BOX 1 MEDICAL MEDICAL OF 100 SUPPLY SUPPLY COLLECTIO 54471 WILTON NÚÑEZ N VENOUS 1 [facility] BLOOD INC INC VENIPUNCT URE PROTHROMB 25516 WILTON NÚÑEZ IN TIME 1 [facility] INC INC EXTERNAL 07505 WILTON NÚÑEZ ECG 1 [facility] SCANNING INC INC ANALYSIS REPORT ECG 81067 WILTON NÚÑEZ ROUTINE 1 [facility] ECG INC INC W/LEAST 12 LDS TRCG ONLY W/O I&R XTRNL ECG 94664 WILTON NÚÑEZ 1 [facility] S RHYTHM P P W/I&R UP TO 48 HRS XTRNL ECG 29300 WILTON NÚÑEZ & 48 HR 1 [facility] RECORDING INC INC COLLECTIO 95279 WILTON NÚÑEZ N VENOUS 1 [facility] BLOOD INC INC VENIPUNCT URE PROTHROMB 08855 WILTON NÚÑEZ IN TIME 1 [facility] INC INC PROTHROMB 05283 WILTON NÚÑEZ IN TIME 1 [facility] INC INC COMPREHEN 21100 WILTON NÚÑEZ SIVE 1 [facility] METABOLIC INC INC PANEL COLLECTIO 36872 WILTON NÚÑEZ N VENOUS 1 [facility] BLOOD INC INC VENIPUNCT URE LIPID 91946 WILTON NÚÑEZ PANEL 1 [facility] INC INC HEMOGLOBI 82749 WILTON NÚÑEZ N 1 [facility] GLYCOSYLA INC INC ELY A1C COLLECTIO 85822 WILTON NÚÑEZ N VENOUS 0 [facility] BLOOD INC INC VENIPUNCT URE PROTHROMB 66118 WILTON NÚÑEZ IN TIME 0 [facility] INC INC REPL GEM A4233 LIBERTY LIBERTY ALKALINE 0 MEDICAL MEDICAL NOT J SUPPLY SUPPLY CELL GIANNA BG MON OWND PT LANCETS A4259 [facility]ERTY PER BOX 0 MEDICAL MEDICAL OF 100 SUPPLY SUPPLY BLD GLU A4253 [facility] TEST/REAG 0 MEDICAL MEDICAL T STRIPS SUPPLY SUPPLY HOME BLD GLU MON-50 NORMAL A4256 [facility]ERTY LIBERTY LOW AND 0 MEDICAL MEDICAL HIGH SUPPLY SUPPLY CALIBRATO R SOLUTION/ CHIPS COLLECTIO 46498 WILTON NÚÑEZ N VENOUS 0 [facility] BLOOD INC INC VENIPUNCT URE PROTHROMB 74166 WILTON NÚÑEZ IN TIME 0 [facility] INC INC PROTHROMB 15862 WILTON NÚÑEZ IN TIME 0 [facility] INC INC COLLECTIO 43085 WIL[facility] N VENOUS 0 [facility] BLOOD INC INC VENIPUNCT URE NORMAL A4256 [facility] LOW AND 0 [facility] HIGH SUPPLY SUPPLY CALIBRATO R SOLUTION/ CHIPS BLD GLU A4253 [facility] TEST/REAG 0 [facility] MED[facility] T STRIPS SUPPLY SUPPLY HOME BLD GLU LANCETS A4259 [facility] PER BOX 0 [facility] OF 100 SUPPLY SUPPLY COLLECTIO 77945 [facility] N VENOUS 0 [facility] INC VENIPUNCT URE PROTHROMB 62440 [facility] IN TIME 0 [facility] INC PROTHROMB 36458 [facility] IN TIME 0 [facility] INC COLLECTIO 01076 [facility] N VENOUS 0 [facility] INC VENIPUNCT URE CULTURE 48434 [facility] BACTERIAL 0 [facility] INC QUANTTATI VE COLONY COUNT URINE CULTURE 26977 [facility] BCT 0 [facility] ISOL&PRSM INC INC PTV ID ISOLATE EA URINE SUSCEPTIB 85676 [facility] LTY STDY 0 [facility] ANTIMICRB INC INC IAL MICRO/AGA R DILUTJ PROTHROMB 79980 [facility] IN TIME 0 [facility] INC INC COLLECTIO 35906 [facility] N VENOUS 0 [facility] INC VENIPUNCT URE LANCETS A4259 [facility] PER BOX 0 [facility] OF 100 SUPPLY SUPPLY BLD GLU A4253 [facility] TEST/REAG 0 [facility] MED[facility] T STRIPS SUPPLY SUPPLY HOME BLD GLU NORMAL A4256 [facility] LOW AND 0 [facility] HIGH SUPPLY SUPPLY CALIBRATO R SOLUTION/ CHIPS COLLECTIO 78740 [facility] N VENOUS 0 [facility]OD INC INC VENIPUNCT URE PROTHROMB 40283 [facility] IN TIME 0 [facility] INC BASIC 15440 [facility] METABOLIC 0 [facility] PANEL INC INC CALCIUM TOTAL PROTHROMB 13264 [facility] IN TIME 0 [facility] INC INC COLLECTIO 93559 [place] NÚÑEZ N VENOUS 0 [facility] BLOOD INC INC VENIPUNCT URE COLLECTIO 74840 [facility] N VENOUS 0 [facility]OD INC INC VENIPUNCT URE PROTHROMB 71340 [place] IN TIME 0 [facility] INC PROTHROMB 70882 [facility] IN TIME 0 [facility] INC INC COLLECTIO 30939 [facility] [place] N VENOUS 0 [facility] BLOOD INC INC VENIPUNCT URE COLLECTIO 80001 [facility] N VENOUS 0 [facility]LOOD INC INC VENIPUNCT URE PROTHROMB 28101 [facility] N[facility] IN TIME 0 [facility] INC INC PROTHROMB 91681 [facility] IN TIME 0 [facility] INC INC COLLECTIO 93128 [facility] NÚÑ[facility] N VENOUS 0 [facility] BLOOD INC INC VENIPUNCT URE BLD GLU A4253 [facility] TEST/REAG 0 MEDICAL MEDICAL T STRIPS SUPPLY SUPPLY HOME BLD GLU MON-50 LANCETS A4259 [facility] PER BOX 0 [facility] 100 SUPPLY SUPPLY CREATININ 05314 [facility] E BLOOD 0 [facility] COLLECTIO 50467 [facility] N VENOUS 0 [facility] VENIPUNCT URE CT PELVIS 8[address] [facility] [place] W/O & 0 RADIOLOGY LD, A D W/[place] [address] [facility] [place] ABDOMEN 0 RADIOLOGY LD, A D W/O & W/CONTRAS T MATERIAL COLLECTIO 20385 [facility] N[facility] N VENOUS 0 [facility] BLOOD INC INC VENIPUNCT URE PROTHROMB 16668 [facility] NÚÑEZ IN TIME 0 [facility] INC INC PHYSICAL 18930 [facility] THERAPY 9 NAL [facility] D, EVALUATIO ASSOC DANNITA N PSC THERAPEUT 43232 PROFESS[facility] CROSS[place]EL IC PX 1/> 9 NAL REHAB D, AREAS ASSOC DANNITA EACH 15 PSC MIN EXERCISES ECG 53631 [place], ROUTINE 9 ENOC [facility] ECG CLINIC W/LEAST PSC 12 LDS W/I&R XTRNL ECG 19962 [place], & 48 HR 9 ENOC [facility] RECORD CLINIC SCAN STOR PSC W/R&I BLD GLU A4253 [facility] TEST/REAG 9 [facility] T STRIPS SUPPLY SUPPLY HOME BLD GLU MON-50 NORMAL A4256 [facility] LOW AND 9 [facility] HIGH SUPPLY SUPPLY CALIBRATO R SOLUTION/ [facility]IPS LANCETS A4259 [facility] PER BOX 9 [facility] OF 100 SUPPLY SUPPLY CREATININ 51329 [facility] E [facility]LOOD 9 [facility] INC COLLECTIO 60010 [facility] N VENOUS 9 [facility] BLOOD INC INC VENIPUNCT URE PROTHROMB 40553 [facility] IN TIME 9 [facility] INC COLLECTIO 03136 [facility] N VENOUS 9 [facility] BLOOD INC INC VENIPUNCT URE PROTHROMB 78732 [facility] IN TIME 9 [facility] INC COLLECTIO 59215 [facility] N VENOUS 9 [facility] BLOOD INC INC VENIPUNCT URE PROTHROMB 22815 [facility] IN TIME 9 [facility] INC INC PROTHROMB 09018 [facility] IN TIME 9 [facility] INC INC COLLECTIO 83407 [facility] N VENOUS 9 [facility] BLOOD INC INC VENIPUNCT URE COLLECTIO 73527 [facility] N VENOUS 9 [facility] BLOOD INC INC VENIPUNCT URE PROTHROMB 02390 [facility] IN TIME 9 [facility] INC INC BLD GLU A4253 LIBERTY LIBERTY TEST/REAG 9 MEDICAL MEDICAL T STRIPS SUPPLY SUPPLY HOME BLD GLU MON-50 NORMAL A4256 LIBERTY LIBERTY LOW AND 9 MEDICAL MEDICAL HIGH SUPPLY SUPPLY CALIBRATO R SOLUTION/ CHIPS LANCETS A4259 LIBERTY LIBERTY PER BOX 9 MEDICAL MEDICAL OF 100 SUPPLY SUPPLY PROTHROMB 26207 [facility] IN TIME 9 [facility] INC COLLECTIO 86616 [facility] N VENOUS 9 [facility] BLOOD INC INC VENIPUNCT URE COLLECTIO 14104 [facility] N VENOUS 9 [facility] BLOOD INC INC VENIPUNCT URE PROTHROMB 48759 [facility] IN TIME 9 [facility] INC INC PROTHROMB 41650 [facility] IN TIME 9 [facility] INC INC COLLECTIO 22299 [facility] N VENOUS 9 [facility] BLOOD INC INC VENIPUNCT URE COLLECTIO 46372 [facility] N VENOUS 9 [facility] BLOOD INC INC VENIPUNCT URE PROTHROMB 89048 [facility] IN TIME 9 [facility] INC INC PROTHROMB 96085 [facility] IN TIME 9 [facility] INC INC THROMBOPL 01879 [facility] ASTIN 9 [facility] TIME INC INC PARTIAL PLASMA/WH OLE BLOOD COMPREHEN 23591 [facility] SIVE 9 [facility] METABOLIC INC INC PANEL RADIOLOGI 20194 [facility] C 9 [facility] EXAMINATI INC INC ON CHEST SINGLE VIEW FRONTAL ECG 37007 [facility] ROUTINE 9 [facility] ECG INC INC W/LEAST 12 LDS TRCG ONLY W/O I&R BLOOD 21581 [facility] COUNT 9 [facility] COMPLETE INC INC AUTO&AUTO DIFRNTL WBC BLOOD 72873 [facility] GASES ANY 9 [facility] INC INC COMBINATI ON PH PCO2 PO2 CO2 HCO3 NATRIURET 40353 [facility] IC 9 [facility] PEPTIDE INC INC ECG 77211 DAT WAYNE, ROUTINE 9 EMERGENCY [facility] ECG SERVICES O W/LEAST 12 LDS ASSOCIATE I&R ONLY S COLLECTIO 74573 [facility] N VENOUS 9 [facility] BLOOD INC INC VENIPUNCT URE PROTHROMB 71629 [facility] IN TIME 9 [facility] INC INC BLD GLU A4253 LIBERTY LIBERTY TEST/REAG 9 MEDICAL MEDICAL T STRIPS SUPPLY SUPPLY HOME BLD GLU MON-50 NORMAL A4256 LIBERTY LIBERTY LOW AND 9 MEDICAL MEDICAL HIGH SUPPLY SUPPLY CALIBRATO R SOLUTION/ CHIPS LANCETS A4259 LIBERTY LIBERTY PER BOX 9 MEDICAL MEDICAL OF 100 SUPPLY SUPPLY HEPATIC 76108 [facility] FUNCTION 9 [facility] PANEL INC INC PROTHROMB 49828 [facility] IN TIME 9 [facility] [place] [address] [facility] THYROID 9 [facility] STIMULATI INC INC NG HORMONE TSH COLLECTIO 61619 [facility] N VENOUS 9 [facility] BLOOD INC INC VENIPUNCT URE COLLECTIO 43021 [facility] N VENOUS 9 [facility] BLOOD INC INC VENIPUNCT URE PROTHROMB 64383 [facility] IN TIME 9 [facility] INC INC OPHTH 99990 FAYE, FAYE, MEDICAL 9 SABINA A SABINA A XM&EVAL COMPRHNSV ESTAB PT 1/> COLLECTIO 43336 [facility] N VENOUS 9 [facility] BLOOD INC INC VENIPUNCT URE PROTHROMB 54583 [facility] IN TIME 9 [facility] INC INC LANCETS A4259 LIBERTY LIBERTY PER BOX 9 MEDICAL MEDICAL OF 100 SUPPLY SUPPLY BLD GLU A4253 LIBERTY LIBERTY TEST/REAG 9 MEDICAL MEDICAL T STRIPS SUPPLY SUPPLY HOME BLD GLU MON-50 PROTHROMB 89120 COMBINED COMBINED IN TIME 9 PHYSICIAN PHYSICIAN S LAB S LAB COLLECTIO 75988 COMBINED COMBINED N VENOUS 9 PHYSICIAN PHYSICIAN BLOOD S LAB S LAB VENIPUNCT URE COLLECTIO 11880 COMBINED COMBINED N VENOUS 9 PHYSICIAN PHYSICIAN BLOOD S LAB S LAB VENIPUNCT URE PROTHROMB 67007 COMBINED COMBINED IN TIME 9 [place] [address] [facility] [place] NIKKY, ABDOMEN 8 RADIOLOGY SON M W/O & W/CONTRAS T MATERIAL URNLS DIP 77642 [facility] COMM[facility] 8 LTH LTH STICK/TAB UROLOGY UROLOGY LET RGNT PSC PSC AUTO W/O MICROSCOP Y COLLECTIO 66569 [facility] N VENOUS 8 [facility] BLOOD VENIPUNCT URE CREATININ 31074 [facility] E BLOOD 8 [facility] DOPPLER 69775 [facility] ECHOCARD 8 [facility] PULSE CLINIC CLINIC WAVE PSC PSC W/SPECTRA L DISPLAY ECG 71873 [place], ROUTINE 8 [facility] ECG CLINIC W/LEAST PSC 12 LDS W/I&R ECHO 35645 [facility] TRANSTHOR 8 [facility] AC R-T 2D CLINIC CLINIC W/WO PSC PSC M-MODE REC COMP DOP 61255 LINDSEY HERNANDESCARD 8 [facility] [place] COLOR CLINIC FLOW PSC VELOCITY MAPPING COLLECTIO 58670 COMBINED COMBINED N VENOUS 8 PHYSICIAN PHYSICIAN BLOOD S LAB S LAB VENIPUNCT URE PROTHROMB 24967 COMBINED COMBINED IN TIME 8 PHYSICIAN PHYSICIAN S LAB S LAB A4258 [facility] LIBERTY WERED 8 MEDICAL SUPERVISOR NURSE SUPPLY SUPPLY FOR LANCET EACH BLD GLU A4253 [employer]ERTY LIBERTY TEST/REAG 8 MEDICAL MEDICAL T STRIPS SUPPLY SUPPLY HOME BLD GLU MON-50 NORMAL A4256 LIBERTY LIBERTY LOW AND 8 MEDICAL MEDICAL HIGH SUPPLY SUPPLY CALIBRATO R SOLUTION/ CHIPS LANCETS A4259 LIBERTY LIBERTY PER BOX 8 MEDICAL MEDICAL OF 100 SUPPLY SUPPLY ANES 12793 [facility] BALDERAS, TRANSURET 8 LTH MARÍA HRAL ANESTHESI V W/URETHRO A PSC CYSTOSCOP Y NOS GLUC BLD 01074 RONALDO HIGGINS GLUC MNTR 8 [facility] CLEARED [facility] FDA SPEC HOME USE INJECTION J2250 RONALDO HIGGINS [address] [place] [address] [facility] HCL PER [facility] 1 [place] [address] RONALDO HIGGINS SURG [address] [place] [address] PATHOLOGY [facility] GROSS&GUILLERMO ROSCOPIC EXAM CYSTOURET 15080 RONALDO HIGGINS HROSCOPY 8 [facility] WITH MEDICAL MEDICAL BIOPSY CENTER CENTER INJECTION J3010 RONALDO HIGGINS FENTANYL 8 REGIONAL REGIONAL [place] [facility]ICAL 0.1 [facility] INJECTION J2405 RONALDO HIGGINS 8 [facility]AL [facility]AL [facility] ON HCL [facility] PER 1 MG ECG 08776 [facility] ROUTINE 8 [facility] ECG INC INC W/LEAST 12 LDS TRCG ONLY W/O I&R COLLECTIO 16510 [facility] N VENOUS 8 [facility] BLOOD INC INC VENIPUNCT URE COMPREHEN 98245 [facility] SIVE 8 [facility] METABOLIC INC INC PANEL THROMBOPL 28005 [facility] ASTIN 8 [facility] TIME INC INC PARTIAL PLASMA/WH OLE BLOOD PROTHROMB 30705 [facility] IN TIME 8 [facility] INC INC RADIOLOGI 10664 [facility] C EXAM 8 [facility] CHEST 2 INC INC VIEWS FRONTAL&L ATERAL ECG 56993 [facility] WINTER, ROUTINE 8 [facility] W/LEAST PROF SERV 12 LDS I&R ONLY BLOOD 93137 [facility] COUNT 8 [facility] COMPLETE INC INC AUTO&[place] [address] [facility]TR[facility] MANJINDER SHER, ABDOMEN 8 RADIOLOGY SON Torres W/O & W/CONTRAS T MATERIAL CT PELVIS 64498 CNTR[facility] MANJINDER SHER, W/O & 8 RADIOLOGY SON M W/CONTRAS T MATERIAL LANCETS A4259 [facility] 8 [facility] OF 100 3938 3938 BLD GLU A4253 [facility] TEST/REAG 8 [facility] PHARMACY T STRIPS 3938 3938 HOME BLD GLU MON-50 OPHTH 08842 [facility] 8 SABINA A SABINA A XM&EVAL COMPRHNSV ESTAB PT 1/> Encounters Encounter Start End Date Code Location Performer Type Date EMERGENCY 23806 UZIEL HUGHES 6 6 PHYSICIAN DEPARTMEN S, PLL T VISIT MODERATE SEVERITY [facility] T EMERGENCY 12798 [facility] 6 6 [facility] DEPARTMEN INC T VISIT LIMITED/M INOR PROB OFFICE 78486 A C NELSON OUTPATIEN 6 6 SHAUN CAMERON T VISIT PSC 15 MINUTES OFFICE 48839 A C JEFFREY ELLY OUTPATIEN 6 6 SHAUN COOK T VISIT 5 PSC MINUTES OFFICE 83437 A C JEFFREY ELLY OUTPATIEN 6 6 SHAUN COOK T VISIT PSC 15 MINUTES OFFICE 87266 A C JEFFREY ELLY OUTPATIEN 6 6 SHAUN COOK T VISIT PSC 15 MINUTES OFFICE 30274 A C JEFFREY ELLY OUTPATIEN 5 5 SHAUN COOK T VISIT 5 PSC MINUTES OFFICE 99319 A C JEFFREY ELLY OUTPATIEN 5 5 SHAUN COOK T VISIT 5 PSC MINUTES EMERGENCY 64832 [facility] ACEVEDO 5 5 [facility] T VISIT P MODERATE SEVERITY OFFICE 83492 A C JEFFREY ELLY OUTPATIEN 5 5 SHAUN COOK T VISIT 5 PSC MINUTES OFFICE 08683 A C JEFFREY ELLY OUTPATIEN 5 5 SHAUN COOK T VISIT 5 PSC MINUTES OFFICE 10021 A C AMB OUTPATIEN 4 4 SHAUN COOK T VISIT PSC 15 MINUTES OFFICE 35547 A C KILPELA OUTPATIEN 4 4 SHAUN FRANCIS T VISIT PSC 15 MINUTES OFFICE 23495 A C JEFFREY ELLY OUTPATIEN 4 4 SHAUN COOK T VISIT 5 PSC MINUTES OFFICE 76119 A C JEFFREY ELLY OUTPATIEN 4 4 SHAUN COOK T VISIT 5 PSC MINUTES OFFICE 48527 JEFFREY ELLY BATRESES ELLY OUTPATIEN 4 4 T VISIT 5 MINUTES OFFICE 70627 JEFFREY NORIEGA ELLY OUTPATIEN 4 4 T VISIT 25 MINUTES OFFICE 69834 JEFFREYELENI SANABRIA JEFFREY ELLY OUTPATIEN 4 4 T VISIT 5 MINUTES OFFICE 76407 A C JEFFREY ELLY OUTPATIEN 3 3 SHAUN COOK T VISIT PSC 15 MINUTES OFFICE 98502 MOURA MARTELL OUTPATIEN 3 3 NEENA NEENA T NEW 30 MINUTES OFFICE 51191 A C KILPELA OUTPATIEN 3 3 SHAUN COOK JEA T VISIT PSC 25 MINUTES OFFICE 60867 A C EJFFREY SANABRIA OUTPATIEN 3 3 SHAUN COOK T VISIT PSC 10 MINUTES Emergency SRI Wilton Acevedo MD (ER) 3 18:43 3 20:14 [facility] EMERGENCY 61521 [facility] 3 3 [facility] DEPART[facility] T VISIT LOW/MODER SEVERITY [facility] 3 [facility] OUTPATIEN INC T OFFICE 69658 JEFFREY NORIEGA ELLY OUTPATIEN 3 3 T VISIT 25 MINUTES [facility] 2 2 [facility] T [facility] 2 2 [facility] T OFFICE 51959 PODIATRIC LEYDI ABDIRASHID OUTPATIEN 2 2 FOOT & T VISIT ANKLE 25 SPECI MINUTES OFFICE 80920 A C JEFFREY ELLY OUTPATIEN 1 1 SHAUN COOK T VISIT PSC 15 MINUTES OFFICE 68734 A C INDIO OUTPATIEN 1 1 SHAUN COOK ABDIRASHID T VISIT 5 PSC MINUTES [facility] T OFFICE 16157 A C INDIO OUTPATIEN 1 1 SHAUN MENDENHALL T VISIT 5 PSC MINUTES OFFICE 05659 A C JEFFREY ELLY OUTPATIEN 1 1 SHAUN COOK T NEW 30 PSC MINUTES OFFICE 08683 A Joshua SANABRIA OUTPATIEN 1 1 SHAUN COOK T VISIT PSC 15 MINUTES [facility] OFFICE 20623 AVA HOLLEY ABDIRASHID OUTPATIEN 1 1 ANDREYRACQUEL VISIT CLINIC 25 PSC MINUTES [facility] 1 [facility] 1 [facility] 1 1 [facility] - 0 0 [facility] 0 0 [facility] 0 0 [facility] 0 0 [facility] 0 0 [facility] 0 0 [facility] - 0 0 [facility] OFFICE 41559 AVA HOLLEY OUTPATIEN 0 0 ENOC SHANTELL T VISIT CLINIC 15 PSC MINUTES [facility] 0 0 [facility] 0 0 [facility] 0 0 [facility] 0 0 [facility] 0 0 [facility] 0 0 [facility] RENÉE - 0 0 [facility] OFFICE 48321 [place] CONNORSEN 0 0 [facility] Vil[facility] T VISIT UROLOGY 40 PSC MINUTES [facility] 0 0 [facility] - 9 9 [facility] OFFICE 54600 ANABELL HERNANDESPATIEN 9 9 ENOC Saini VISIT CLINIC 10 PSC MINUTES OFFICE 97979 [facility] [place] MEDELLINEN 9 9 ENOC Saini VISIT CLINIC 15 PSC MINUTES OFFICE 38822 CAROLINA FIGUEROA OUTPATIEN 9 9 SARAH A SARAH A T VISIT 15 MINUTES [facility] 9 9 [facility] - 9 9 [facility] - 9 9 [facility] - 9 9 [facility] - 9 9 [facility] - 9 9 [facility] - 9 9 [facility] - 9 9 [facility] - 9 9 [facility] OUTPATIEN INC OFFICE 79418 CAROLINA FIGUEROA OUTPATIEN 9 9 SARAH A SARAH A T VISIT 15 MINUTES EMERGENCY 05510 DAT WAY[facility], DEPT 9 9 EMERGENCY [place] VISIT SERVICES O HIGH SEVERITY& ASSOCIATE THREAT S [facility] - 9 9 [facility] EMERGENCY 67845 [facility] 9 9 [facility] VISIT MODERATE [facility]VERITY [facility] - 9 9 [facility] - 9 9 [facility] - 9 9 [facility] - 9 9 [facility] OUTPATIEN [facility] [place] [address] 8 [facility] 51393 [place] CONNORS 8 8 [facility] Vil[facility]is T VISIT UROLOGY 40 PSC MINUTES OFFICE 65581 JINNY STEARNS OUTPATIEN 8 8 ESTUARDO MARTE T VISIT 40 MINUTES HOSPITAL RONALDO - 8 8 [facility] - 8 8 [facility]
--- OUTSIDE RECORDS SUMMARY | 2017-01-14 10:07 | External Medical Summary Rpt ---
Author Author , Organization [employer] Address Unknown Phone Unavailable Care Team Providers Care Scientist Immunology Name Role Phone A Joshua DUNN MD [facility], A Unavailable Unavailable Joshua DUNN MD [facility], Unavailable Unavailable [facility], Unavailable Unavailable [facility], Unavailable Unavailable [facility] Unavailable Unavailable [facility], [facility] LEYDI ABDIRASHID, LEYDI ABDIRASHID Unavailable Unavailable SHANTELL HOLLEY, Unavailable Unavailable SHANTELL HOLLEY KIMBERLY V, Unavailable Unavailable MARÍA BALDERAS ROLANDO, Unavailable Unavailable ESTUARDO [facility] Unavailable [facility], [facility] Unavailable Unavailable LAB, [facility] Unavailable Unavailable PSC, [facility] CROSSFIELD, DANNITA, Unavailable Unavailable CROSSFIELD, DANNITA SU NANC[facility], Unavailable Unavailable SU N[facility], Unavailable Unavailable [facility] Unavailable Un[facility] Unavailable Unavailable [facility] DOCTOR [facility] Unavailable Unavailable [facility], DOCTOR DIABETIC [facility] DOCTOR DIABETIC Unavailable Unavailable [facility], DOCTOR DIABETIC [facility], [facility] Unavailable Unavailable ANGELINE GUILLERMO, ANGELINE Unavailable Unavailable GUILLERMO NELSON NIÑO Unavailable Unavailable [facility] Unavailable Unavailable HOSPITAL P, [facility] P SABINA FAYE, Unavailable Unavailable SABINA [...] Unavailable JEFFREY ELLY, JEFFREY ELLY Unavailable Unavailable [facility] Unavailable Unavailable PSC, [facility] SARAH FIGUEROA, Unavailable Unavailable SARAH FIGUEROA DAVID J, Unavailable Unavailable [facility], Unavailable Unavailable [facility], [facility] & Unavailable Unavailable [facility], [facility], Unavailable Unavailable [facility], Unavailable Unavailable [facility] INDIO ABDIRASHID, INDIO Unavailable Unavailable ABDIRASHID [id number], Unavailable Unavailable [id number] Unavailable Unavailable [id number] [address] [id number], [facility] [id number] # [id number] [facility] Unavailable Unavailable 3938, [facility]38 SADEK, SADEK Unavailable Unavailable [facility] Unavailable Unavailable [facility] Unavailable Unavailable [facility] SOKAN, SHOSHANA O, Unavailable Unavailable SOKAN, SHOSHANA O [facility] Unavailable Unavailable [facility] LEXIE SERNA, Unavailable Unavailable LEXIE SERNA FREDDIE L, Unavailable Unavailable [facility] Unavailable Unavailable JAYLEN, A D, Unavailable Unavailable JAYLEN, A D Purpose Continuity of Care Document - 10-29-2007 through 2016 Problems Code Diagnosis DOS Provider Status E119 TYPE 2 08-11-2016 [facility] MELLITUS [facility] WITHOUT COMPLICATIO NS N3000 ACUTE 08-11-2016 [facility] CYSTITIS [facility] WITHOUT INC HEMATURIA N390 URINARY 08-11-2016 [facility], INFECTION [facility] SITE NOT SPECIFIED R319 HEMATURIA 08-11-2016 [facility] UNSPECIFIED [facility] INC E1165 TYPE 2 04-22-2016 Sam DUNN DIABETES PSC MELLITUS WITH HYPERGLYCEM IA I10 ESSENTIAL 04-22-2016 Sam DUNN PRIMARY PSC HYPERTENSIO N Z5181 ENCOUNTER 04-22-2016 Sam DUNN FOR PSC THERAPEUTIC DRUG LEVEL MONITORING Z7901 FDC 04-22-2016 Sam DUNN CURRENT USE PSC OF [...] Joshua LEARY MD PSC THERAPEUTIC DRUG MONITORING 57008 DIAB W/O 04-14-2015 A Joshua DALTON MD PSC COMP TYPE II/UNS TYPE UNCNTRL 61538 DIAB W/O 03-30-2015 ALL COMP TYPE KITTITIAN II/UNS NOT MEDICAL STATED UNCNTRL 97393 HYPERCALCEM 01-08-2015 [facility] P 79817 ABDOMINAL 01-08-2015 [facility] PAIN OTHER [facility] P SITE 02436 ABNORMAL 01-08-2015 [facility] COAGULATION [facility] P 7881 DYSURIA 08-25-2014 A Joshua DUNN MD PSC V5861 LONG-TERM 08-25-2014 A Joshua DUNN (CURRENT) PSC USE OF ANTICOAGULA NTS 17622 DIAB 09-27-2013 JEFFREY ELLY W/NEURO MANIFESTS TYPE II/UNS TYPE UNCNTRL 2720 PURE 09-27-2013 JEFFREY SANABRIA HYPERCHOLES TEROLEMIA 4011 ESSENTIAL 09-27-2013 JEFFREY SANABRIA HYPERTENSIO N, BENIGN 2449 UNSPECIFIED 05-30-2013 A Joshua DUNN MD PSC HYPOTHYROID ISM 10945 UNSPECIFIED 04-11-2013 MOURA NEENA INFECTIVE OTITIS EXTERNA 470 DEVIATED 04-11-2013 MOURA NEENA NASAL SEPTUM 35259 ATRIAL 11-29-2012 A Joshua DUNN FIBRILLNIKHILO PSC N 33261 DIVERTICULO 11-14-2012 SU SIS OF NANCY COLON 15330 DIVERTICULI 11-14-2012 [facility] TIS OF [facility] COLON INC 5718 OTHER 11-14-2012 SU CHRONIC NANCY NONALCOHOLI C LIVER DISEASE 5932 ACQUIRED 11-14-2012 SU CYST OF NANCY KIDNEY 51944 NUCLEAR 12-29-2011 DAT SCLEROSIS GRE 99144 UNSPECIFIED 12-29-2011 DAT SUBJECTIVE GRE VISUAL DISTURBANCE 67911 OTHER 12-29-2011 DAT VISUAL GRE DISTORTIONS AND ENTOPTIC PHENOMENA 37489 VAGINITIS&V 12-20-2011 JEFFREY ELLY ULVOVAGINIT IS DISEASES CLASS ELSW 59417 SECONDARY 11-22-2011 PODIATRIC LOCALIZED FOOT & OSTEOARTHRO ANKLE SPECI SIS LOWER LEG 87841 PAIN IN 11-22-2011 PODIATRIC JOINT, SITE FOOT & ANKLE SPECI UNSPECIFIED 43315 PAIN IN 11-22-2011 PODIATRIC JOINT, FOOT & LOWER LEG ANKLE SPECI 7291 UNSPECIFIED 11-22-2011 PODIATRIC MYALGIA FOOT & AND ANKLE SPECI MYOSITIS V0481 NEED 06-08-2011 A Joshua DUNN PROPHYLACTI PSC C VACCINATION &INOCULATIO N FLU 5999 UNSPECIFIED 05-31-2011 [facility] URETHRA&URI NARY TRACT 44976 URINARY 05-31-2011 [facility] 5990 URINARY [...] STOMACH 1890 MALIGNANT 11-01-2010 NEW NEOPLASM OF ADJUNTAS KIDNEY [facility] PSC EXCEPT PELVIS 7962 ELEVATED BP 09-09-2010 [facility] WITHOUT DX INC HYPERTENSIO N 47583 DIAB W/O 04-24-2010 [facility] COMP TYPE I MEDICAL [JUV] NOT SUPPLY STATED UNCNTRL 87846 DIVERTICULO 09-30-2009 [facility] [place] SIS OF RADIOLOGY SMALL INTESTINE 591 HYDRONEPHRO 09-30-2009 [facility] S[facility] H UROLOGY PSC 4280 CONGESTIVE 08-06-2009 [facility] FAILURE [facility] PSC UNSPECIFIED 79575 OSTEOARTHRO 08-06-2009 [facility] SIS UNSPEC L REHAB WHETHER ASSOC PSC GEN/LOC LOWER LEG 4168 OTHER 08-05-2009 NEW CHRONIC ADJUNTAS PULMONARY [facility] HEART DISEASES 4660 ACUTE 07-29-2009 FIGUEROA, BRONCHITIS SARAH A 58816 HEMARTHROSI 03-27-2009 [facility] S, LOWER [facility] LEG INC 490 BRONCHITIS 02-24-2009 DAT NOT EMERGENCY SPECIFIED SERVICES ACUTE OR ASSOCIATES CHRONIC 99644 SHORTNESS 02-24-2009 [facility] MEDICAL IMAGING [facility]OCIATES 7906 OTHER 01-13-2009 [facility] ABNORMAL [facility] BLOOD INC CHEMISTRY 74724 OTHER 12-09-2008 FAYE, VITREOUS SABINA A OPACITIES 5939 UNSPECIFIED 08-13-2008 [facility] [place] DISORDER RADIOLOGY OF KIDNEY AND URETER 06548 NOCTURIA 08-13-2008 [facility] H UROLOGY PSC 42960 URGENCY OF 08-13-2008 [facility] URINATION H UROLOGY PSC V4589 OTHER 08-13-2008 [facility] [place] POSTSURGICA RADIOLOGY L STATUS OTHER 71662 COR 02-07-2008 [facility] TYPE [facility] RAMAH NAVAJO CHAPTER/ANA T [address] CYSTITIS 02-07-2008 RON[facility]DO CYSTICA [facility] 41288 OTHER 02-07-2008 [facility] SPECIFIED PATHOLOGY TYPES OF ASSOCIATES CYSTITIS V1053 PERSONAL 02-07-2008 [facility] MALIGNANT MEDICAL NEOPLASM CENTER RENAL PELVIS 74006 CORONARY 01-30-[address] CORONARY PROF SERV ARTERY V1052 PERSONAL 01-23-2008 [...] Procedure DOS Code Location Performer Comment CULTURE 50693 [facility] BACTERIAL 6 [facility] INC INC QUANTTATI VE COLONY COUNT URINE CULTURE 45643 [facility] BCT 6 [facility] ISOL&PRSM INC INC PTV ID ISOLATE EA URINE SUSCEPTIB 44837 [facility]ILTONKAREN NÚÑEZ LTY STDY 6 [facility] ANTIMICRB INC INC IAL MICRO/AGA R DILUTJ URNLS DIP 57918 [facility] NÚÑEZ 6 [facility] STICK/TAB INC INC LET REAGENT AUTO MICROSCOP Y LIPID 86901 A Joshua DAMON PANEL 6 SHAUN CAMERON [facility] HEMOGLOBI 16961 A Joshua DAMON N 6 SHAUN CAMERON GLYCOSYLSam PSC ELY A1C PROTHROMB 81388 A Joshua DAMON IN TIME 6 SHAUN CAMERON PSC PROTHROMB 43525 A Joshua SANABRIA IN TIME 6 SHAUN COOK [facility] HEMOGLOBI 66889 A Joshua SANABRIA N 6 SHAUN SU PSC ELY A1C LANCETS A4259 ALL ALL PER BOX 6 [facility]IAN [facility] OF [facility] MEDICAL MEDICAL BLD GLU A4253 ALL ALL TEST/REAG 6 [facility]IAN [facility] BLD GLU MON-50 NORMAL A4256 ALL ALL LOW AND 6 K[facility]IAN [facility] HIGH MEDICAL MEDICAL CALIBRATO R SOLUTION/ [facility] E0607 ALL ALL BLOOD 6 KITTITIAN KITT[facility]IAN GLUCOSE MEDICAL MEDICAL MONITOR PROTHROMB 26040 A Joshua SANABRIA IN TIME 6 SHAUN COOK [facility] HEMOGLOBI 67392 A Joshua MURPHY ELLY N 6 SHAUN COOK GLYCOSYLSam PSC ELY A1C LANCETS A4259 ALL ALL PER BOX 6 KITT[facility]IAN [facility] MEDICAL MEDICAL NORMAL A4256 ALL ALL LOW AND 6 KITT[facility]IAN [facility] HIGH MEDICAL MEDICAL CALIBRATO R SOLUTION/ [facility] BLD GLU A4253 ALL ALL TEST/REAG 6 K[facility]IAN [facility] BLD GLU MON-50 [facility] A4258 ALL ALL WERED 6 KITTITIAN KITTITIAN DEVICE MEDICAL MEDICAL FOR LANCET EACH REPL GEM A4233 ALL ALL ALKALINE 6 KITTITIAN KITTITIAN NOT J MEDICAL MEDICAL CELL GIANNA BG MON OWND PT BLD GLU A4253 ALL ALL TEST/REAG 5 KITTITIAN [facility] BLD GLU MON-50 NORMAL A4256 ALL ALL LOW AND 5 KITTITIAN K[facility]IAN HIGH MEDICAL MEDICAL CALIBRATO R SOLUTION/ [facility] LANCETS A4259 ALL ALL PER BOX 5 [place]IAN [place] [address] MEDICAL MEDICAL LANCETS A4259 ALL ALL PER BOX 5 [facility] [place] [address] MEDICAL MEDICAL NORMAL A4256 ALL ALL LOW AND 5 KITTITIAN K[facility] HIGH MEDICAL MEDICAL CALIBRATO R SOLUTION/ [facility] BLD GLU A4253 ALL ALL TEST/REAG 5 KITTITIAN [facility] BLD GLU MON-50 REPL GEM A4233 ALL ALL ALKALINE 5 KITTITIAN KITTITIAN NOT J MEDICAL MEDICAL CELL GIANNA BG MON OWND PT SPRING-PO A4258 ALL ALL WERED 5 KITTITIAN KITTITIAN DEVICE MEDICAL MEDICAL FOR LANCET EACH BLD GLU A4253 ALL ALL TEST/REAG 5 KITTITIAN [facility] BLD GLU MON-50 LANCETS A4259 ALL ALL PER BOX 5 [facility]IAN [place] [address] MEDICAL MEDICAL NORMAL A4256 ALL ALL LOW AND 5 K[facility]IAN [facility] HIGH MEDICAL MEDICAL CALIBRATO R SOLUTION/ [facility] NORMAL A4256 ALL ALL LOW AND 4 [facility]IAN [facility] HIGH MEDICAL MEDICAL CALIBRATO SUPPLIE SUPPLIE R SOLUTION/ [facility] LANCETS A4259 ALL ALL PER BOX 4 KITTITIAN KITTITIAN [facility] MEDICAL SUPPLIE SUPPLIE BLD GLU A4253 ALL ALL TEST/REAG 4 KITTITIAN [facility] BLD SUPPLIE SUPPLIE GLU MON-50 SPRING-PO A4258 ALL ALL WERED 4 KITTITIAN KITTITIAN DEVICE MEDICAL MEDICAL FOR SUPPLIE SUPPLIE LANCET EACH REPL GEM A4233 ALL ALL ALKALINE 4 KITTITIAN KITTITIAN NOT J MEDICAL MEDICAL CELL GIANNA SUPPLIE SUPPLIE BG MON OWND PT BLD GLU A4253 ALL ALL TEST/REAG 4 KITTITIAN [facility] BLD SUPPLIE SUPPLIE GLU MON-50 NORMAL A4256 ALL ALL LOW AND 4 [facility] MEDICAL MEDICAL CALIBRATO SUPPLIE SUPPLIE R SOLUTION/ [facility]IPS LANCETS A4259 ALL ALL PER BOX 4 [place] [address] MEDICAL MEDICAL SUPPLIE SUPPLIE NORMAL A4256 ALL ALL LOW AND 4 [facility] MEDICAL CALIBRATO SUPPLIE SUPPLIE R SOLUTION/ [facility]IPS LANCETS A4259 ALL ALL PER BOX 4 [place] [address] MEDICAL MEDICAL SUPPLIE SUPPLIE BLD GLU A4253 ALL ALL TEST/REAG 4 KITTITIAN [facility] BLD SUPPLIE SUPPLIE GLU MON-50 REPL GEM A4233 ALL ALL ALKALINE 4 KITTITIAN KITTITIAN NOT J MEDICAL MEDICAL CELL GIANNA SUPPLIE SUPPLIE BG MON OWND PT SPRING-PO A4258 ALL ALL WERED 4 KITTITIAN K[facility]IAN DEVICE MEDICAL MEDICAL FOR SUPPLIE SUPPLIE LANCET EACH BLD GLU A4253 ALL ALL TEST/REAG 4 KITTITIAN [facility] BLD SUPPLIE SUPPLIE GLU MON-50 LANCETS A4259 ALL ALL PER BOX 4 [place] [address] MEDICAL MEDICAL SUPPLIE SUPPLIE NORMAL A4256 ALL ALL LOW AND 4 [facility] MEDICAL CALIBRATO SUPPLIE SUPPLIE R SOLUTION/ [facility]IPS NORMAL A4256 ALL ALL LOW AND 3 [facility] MEDICAL MEDICAL CALIBRATO SUPPLIE SUPPLIE R SOLUTION/ [facility] BLD GLU A4253 ALL ALL TEST/REAG 3 KITTITIAN [facility] BLD SUPPLIE SUPPLIE GLU MON-50 LANCETS A4259 ALL ALL PER BOX 3 [place] [address] MEDICAL MEDICAL SUPPLIE SUPPLIE SPRING-PO A4258 ALL ALL WERED 3 KITTITIAN KITTITIAN DEVICE MEDICAL MEDICAL FOR SUPPLIE SUPPLIE LANCET EACH REPL GEM A4233 ALL ALL ALKALINE 3 KITTITIAN KITTITIAN NOT J MEDICAL MEDICAL CELL GIANNA SUPPLIE SUPPLIE BG MON OWND PT LANCETS A4259 ALL ALL PER BOX 3 [place] [address] MEDICAL MEDICAL SUPPLIE SUPPLIE BLD GLU A4253 ALL ALL TEST/REAG 3 K[facility]IAN [facility] BLD SUPPLIE SUPPLIE GLU MON-50 NORMAL A4256 ALL ALL LOW AND 3 KITTITIAN [facility] CALIBRATO SUPPLIE SUPPLIE R SOLUTION/ CHIPS URINLS 00430 A C A C DIP 3 SHAUN DUNN MD STICK/TAB PSC PSC LET REAGNT NON-AUTO MICRSCPY [facility] A4258 US US WERED 3 HEALTHCAR HEALTHCAR [...] OF 100 SUPPLY SUPPLY LLC LLC BLOOD 72356 [facility] N[facility]EZ COUNT 3 [facility] COMPLETE INC INC AUTO&AUTO DIFRNTL WBC URNLS DIP 60404 [facility] N[facility]EZ 3 [facility] STICK/TAB INC INC [place] [address] [facility] LIPASE 3 [facility] INC INC PROTHROMB 24932 [facility] NÚÑEZ IN TIME 3 [facility] INC INC COMPREHEN 05394 [facility] NÚÑEZ SIVE 3 [facility] [address] [facility] N[facility]EZ AMYLASE 3 [place] [address] SU SU ABDOMEN & 3 NANCY NANCY PELVIS W/O CONTRAST MATERIAL 3D 54907 SU SU RENDERING 3 NANCY NANCY W/INTERP& POSTPROC DIFF WORK STATION [facility] A4258 SMART SMART WERED 3 REMEDIES REMEDIES [...] BLD LLC LLC GLU MON- XTRNL ECG 81191 [facility] NÚÑZE & 48 HR 2 [facility] RECORDING INC INC EXTERNAL 50629 [facility] NÚÑEZ ECG 2 [facility] SCANNING INC INC ANALYSIS REPORT XTRNL ECG 58884 EROSKEMIE MCKEMIE 2 JR ANDREE JR ANDREE [...] PER BOX 2 REMEDIES REMEDIES OF 100 [place]-PO A4258 SMART SMART WERED 2 REMEDIES REMEDIES DEVICE FOR LANCET EACH REPL GEM A4235 DOCTOR DOCTOR LITHIUM 2 DIABETIC DIABETIC MED NECES SUPPLY SUPPLY GIANNA [facility] LLC MON OWN PT EA [facility] A4258 DOCTOR DOCTOR WERED 2 DIABETIC DIABETIC [...] HOME [facility] LLC GLU MON-50 RADEX 75224 PODIATRIC [place] SPINE 2 FOOT & LUMBOSACR ANKLE AL 2/3 SPECI VIEWS ECG 16726 PODIATRIC LEYDI ABDIRASHID ROUTINE 2 FOOT & ECG ANKLE W/LEAST SPECI 12 LDS W/I&R ECG 73377 [facility] N[facility]Z ROUTINE 2 [facility] MEM [...] DIABETIC OF [address] [facility] A4258 DOCTOR DOCTOR WERED 1 DIABETIC DIABETIC DEVICE SUPPLY SUPPLY FOR LLC LLC LANCET EACH IIV 64525 A C INDIO VACCINE 1 SHUAN COOK [facility] PRESERV PSC FREE INCREASED AG CONTENT IM ADMINISTR G0008 A C INDIO ATION OF 1 SHAUN COOK [facility] INFLUENZA PSC VIRUS VACCINE CULTURE 22698 [facility] BCT 1 DIAGNOSTI DIAGNOSTI ISOL&PRSM CS CS PTV ID ISOLATE EA URINE CULTURE 39891 [facility] BACTERIAL 1 DIAGNOSTI DIAGNOSTI CS CS QUANTTATI VE COLONY COUNT URINE PROTHROMB 47895 A C A C IN TIME 1 SHAUN DUNN MD PSC PSC URINLS 16355 A C INDIO DIP 1 SHAUN COOK ABDIRASHID STICK/TAB PSC LET REAGNT NON-AUTO MICRSCPY COLLECTIO 73073 A C INDIO N VENOUS 1 SHAUN COOK ABDIRASHID BLOOD PSC VENIPUNCT URE ECG 56351 [facility] N[facility]Z ROUTINE 1 [facility] ECG INC INC W/LEAST 12 LDS TRCG ONLY W/O I&R COLLECTIO 50197 A C INDIO N VENOUS 1 SHAUN COOK [facility] BLOOD PSC VENIPUNCT URE URINLS 92270 A C INDIO DIP 1 SHAUN COOK ABDIRASHID STICK/TAB PSC LET REAGNT NON-AUTO MICRSCPY PROTHROMB 01507 A C A C IN TIME 1 SHAUN DUNN MD [facility] PSC PROTHROMB 65662 A C JEFFREY ELLY IN TIME 1 SHAUN COOK PSC COLLECTIO 21788 A C JEFFREY ELLY N VENOUS 1 SHAUN COOK BLOOD PSC VENIPUNCT URE WALKER E0143 [facility] [place] [facility] 1 HOME HOME WHEELED MEDICAL MEDICAL ADJUSTABL EQUIP EQUIP E/FIXED HEIGHT PROTHROMB 84421 [facility]EZ IN TIME 1 [facility] INC INC COLLECTIO 78259 [facility] N VENOUS 1 [facility] BLOOD INC INC VENIPUNCT URE BLD GLU A4253 [facility] TEST/REAG 1 MEDICAL MEDICAL T [facility]IPS SUPPLY SUPPLY HOME BLD GLU MON-50 NORMAL A4256 [facility] LOW AND 1 MEDICAL MEDICAL HIGH SUPPLY SUPPLY CALIBRATO R SOLUTION/ [facility] LANCETS A4259 [facility]ERTY PER BOX 1 MEDICAL MEDICAL OF 100 SUPPLY SUPPLY COLLECTIO 46952 [facility] N[facility]ÑEZ N VENOUS 1 [facility] BLOOD INC INC VENIPUNCT URE PROTHROMB 47477 [facility] N[facility]ÑEZ IN TIME 1 [facility] INC INC EXTERNAL 70707 [facility] NÚÑEZ ECG 1 [facility] SCANNING INC INC ANALYSIS REPORT ECG 62865 [facility]EZ ROUTINE 1 [facility] ECG INC INC W/LEAST 12 LDS TRCG ONLY W/O I&R XTRNL ECG 30133 [facility] NÚÑEZ 1 [facility] S RHYTHM P P W/I&R UP TO 48 HRS XTRNL ECG 58669 [facility] NÚÑEZ & 48 HR 1 [facility] RECORDING INC INC COLLECTIO 05454 [facility] NÚÑEZ N VENOUS 1 [facility] BLOOD INC INC VENIPUNCT URE PROTHROMB 74492 [facility] NÚÑEZ IN TIME 1 [facility] INC INC PROTHROMB 00971 [facility] NÚÑEZ IN TIME 1 [facility] INC INC COMPREHEN 52181 [facility] NÚÑEZ SIVE 1 [facility] METABOLIC INC INC PANEL COLLECTIO 96646 [facility]ÚÑEZ N VENOUS 1 [facility] BLOOD INC INC VENIPUNCT URE LIPID 92155 [facility] N[facility]ÑEZ PANEL 1 [facility] INC INC HEMOGLOBI 49309 [facility] N[facility]ÑEZ N 1 [facility] GLYCOSYLA INC INC ELY A1C COLLECTIO 38773 [facility] NÚÑEZ N VENOUS 0 [facility] BLOOD INC INC VENIPUNCT URE PROTHROMB 14855 [facility] NÚÑEZ IN TIME 0 [facility] INC INC REPL GEM A4233 LIBERTY [...] SUPPLY SUPPLY CALIBRATO R SOLUTION/ [facility]IPS COLLECTIO 93371 [facility] NÚÑEZ N VENOUS 0 [facility] BLOOD INC INC VENIPUNCT URE PROTHROMB 38183 [facility] NÚÑEZ IN TIME 0 [facility] INC INC PROTHROMB 45752 [facility] NÚÑEZ IN TIME 0 [facility] INC INC COLLECTIO 65155 [facility] NÚÑEZ N VENOUS 0 [facility] BLOOD INC INC VENIPUNCT URE NORMAL A4256 [facility] LOW AND 0 MEDICAL MEDICAL HIGH SUPPLY SUPPLY CALIBRATO R SOLUTION/ [facility] BLD GLU A4253 [facility] LIBERTY TEST/REAG 0 MEDICAL MEDICAL T STRIPS SUPPLY SUPPLY HOME BLD GLU LANCETS A4259 [facility]ERTY PER BOX 0 MEDICAL MEDICAL OF 100 SUPPLY SUPPLY COLLECTIO 35337 [facility] NÚÑEZ N VENOUS 0 [facility] BLOOD INC INC VENIPUNCT URE PROTHROMB 86655 [facility] NÚÑEZ IN TIME 0 [facility] INC INC PROTHROMB 27183 [facility] NÚÑEZ IN TIME 0 [facility] INC INC COLLECTIO 88016 [facility] NÚÑEZ N VENOUS 0 [facility] BLOOD INC INC VENIPUNCT URE CULTURE 88983 [facility] N[facility]Z BACTERIAL 0 [facility] INC INC QUANTTATI VE COLONY COUNT URINE CULTURE 64957 [facility] N[facility]Z BCT 0 [facility] ISOL&PRSM INC INC PTV ID ISOLATE EA URINE SUSCEPTIB 13634 [facility] NÚÑEZ LTY STDY 0 [facility] ANTIMICRB INC INC IAL MICRO/AGA R DILUTJ PROTHROMB 73109 [facility] NÚÑEZ IN TIME 0 [facility] INC INC COLLECTIO 39821 [facility] NÚÑEZ N VENOUS 0 [facility] BLOOD INC INC VENIPUNCT URE LANCETS A4259 [facility] LIBERTY PER BOX 0 MEDICAL MEDICAL OF 100 SUPPLY SUPPLY BLD GLU A4253 [facility] LIBERTY TEST/REAG 0 MEDICAL MEDICAL T STRIPS SUPPLY SUPPLY HOME BLD GLU NORMAL A4256 LIB[facility]ERTY LOW AND 0 MEDICAL MEDICAL HIGH SUPPLY SUPPLY CALIBRATO R SOLUTION/ [facility] COLLECTIO 32658 [facility] NÚÑEZ N VENOUS 0 [facility] BLOOD INC INC VENIPUNCT URE PROTHROMB 78385 [facility] NÚÑEZ IN TIME 0 [facility] INC INC BASIC 52778 [facility] NÚÑEZ METABOLIC 0 [facility] PANEL INC INC CALCIUM TOTAL PROTHROMB 31803 [facility] NÚÑEZ IN TIME 0 [facility] INC INC COLLECTIO 66107 [facility] NÚÑEZ N VENOUS 0 [facility]OD INC INC VENIPUNCT URE COLLECTIO 39857 [facility] N VENOUS 0 [facility] BLOOD INC INC VENIPUNCT URE PROTHROMB 34633 [place] IN TIME 0 [facility] INC PROTHROMB 12338 [facility] IN TIME 0 [facility] INC INC COLLECTIO 58751 [facility] N VENOUS 0 [facility] BLOOD INC INC VENIPUNCT URE COLLECTIO 69132 [facility] N VENOUS 0 [facility] BLOOD INC INC VENIPUNCT URE PROTHROMB 10577 [facility] N[facility] IN TIME 0 [facility] INC PROTHROMB 19863 [facility] N[facility] IN TIME 0 [facility] INC COLLECTIO 67720 WILTON NÚÑEZ N VENOUS 0 [facility] BLOOD INC INC VENIPUNCT URE BLD GLU [id number] [facility] TEST/REAG 0 MEDICAL MEDICAL T STRIPS SUPPLY SUPPLY HOME BLD GLU MON-50 LANCETS [id number] [facility]ERTY PER BOX 0 [facility] OF 100 SUPPLY SUPPLY CREATININ 45178 [facility] E BLOOD 0 [facility] COLLECTIO 65609 [facility] N VENOUS 0 [facility] VENIPUNCT URE CT PELVIS 34081 [facility] [place] W/O & 0 RADIOLOGY LD, A D W/[place] [address] [facility] [place] ABDOMEN 0 RADIOLOGY LD, A D W/O & W/CONTRAS T MATERIAL COLLECTIO 93043 [facility]IL[facility] NÚÑEZ N VENOUS 0 [facility] BLOOD INC INC VENIPUNCT URE PROTHROMB 02642 WIL[facility] NÚÑEZ IN TIME 0 [facility] HOSP INC INC PHYSICAL 87657 [facility] THERAPY 9 NAL REHAB D, EVALUATIO ASSOC DANNITA N PSC THERAPEUT 89921 PROFESSIO CROSSFIEL IC PX 1/> 9 NAL REHAB D, AREAS ASSOC DANNITA EACH 15 PSC MIN EXERCISES ECG 29992 [place], ROUTINE 9 ENOC Saini ECG CLINIC W/LEAST PSC 12 LDS W/I&R XTRNL ECG 68503 [place], & 48 HR 9 ENOC Saini RECORD CLINIC SCAN STOR PSC W/R&I BLD GLU [id number] [facility] LIBERTY TEST/REAG 9 MEDICAL MEDICAL T STRIPS SUPPLY SUPPLY HOME BLD GLU MON-50 NORMAL [id number] [facility] LOW AND 9 MEDICAL MEDICAL HIGH SUPPLY SUPPLY CALIBRATO R SOLUTION/ CHIPS LANCETS A4259 [facility] LIBERTY PER BOX 9 MEDICAL MEDICAL OF 100 SUPPLY SUPPLY CREATININ 84662 [facility] NÚ[facility] E BLOOD 9 [facility] INC COLLECTIO 24775 W[facility] NÑÚEZ N [facility]ENOUS 9 [facility] BLOOD INC INC VENIPUNCT URE PROTHROMB 66108 [facility] N[facility] IN TIME 9 [facility] INC COLLECTIO 03545 [facility] N[facility] N VENOUS 9 [facility] BLOOD INC INC VENIPUNCT URE PROTHROMB 65494 [facility] IN TIME 9 [facility] [facility] COLLECTIO 85226 [facility] NÚÑEZ N VENOUS 9 [facility]OD [facility] INC VENIPUNCT URE PROTHROMB 86386 [facility] NÚÑEZ IN TIME 9 [facility] PROTHROMB 42336 [facility] NÚÑ[facility]Z IN TIME 9 [facility] INC COLLECTIO 99810 [facility] NÚÑEZ N VENOUS 9 [facility]OD INC INC VENIPUNCT URE COLLECTIO 26200 [facility] NÚÑEZ N VENOUS 9 [facility] BLOOD INC INC VENIPUNCT URE PROTHROMB 88399 [facility] NÚÑEZ IN TIME 9 [facility] INC BLD GLU A4253 LIBERTY LIBERTY TEST/REAG 9 MEDICAL MEDICAL T STRIPS SUPPLY SUPPLY HOME BLD GLU MON-50 NORMAL A4256 LIBERTY LIBERTY LOW AND 9 MEDICAL MEDICAL HIGH SUPPLY SUPPLY CALIBRATO R SOLUTION/ CHIPS LANCETS A4259 LIBERTY LIBERTY PER BOX 9 MEDICAL MEDICAL OF 100 SUPPLY SUPPLY PROTHROMB 63045 [facility] NÚÑEZ IN TIME 9 [facility] INC COLLECTIO 96718 [facility] NÚÑEZ N VENOUS 9 [facility]OD INC INC VENIPUNCT URE COLLECTIO 42543 [facility] NÚÑEZ N VENOUS 9 [facility]OD INC INC VENIPUNCT URE PROTHROMB 55272 [facility] NÚÑEZ IN TIME 9 [facility] INC PROTHROMB 20573 [facility] NÚÑ[facility]Z IN TIME 9 [facility] INC COLLECTIO 16618 [facility] NÚÑEZ N VENOUS 9 [facility]OD INC INC VENIPUNCT URE COLLECTIO 96853 [facility] NÚÑEZ N VENOUS 9 [facility]OD INC INC VENIPUNCT URE PROTHROMB 19569 [facility] NÚÑEZ IN TIME 9 [facility] INC PROTHROMB 40398 [facility] NÚÑEZ IN TIME 9 [facility] INC THROMBOPL 44359 [facility] NÚÑEZ ASTIN 9 [facility] TIME INC INC PARTIAL PLASMA/WH OLE BLOOD COMPREHEN 32713 [facility] NÚÑEZ SIVE 9 [facility] METABOLIC INC INC PANEL RADIOLOGI 69512 [facility] NÚÑEZ C 9 [facility] EXAMINATI INC INC ON CHEST SINGLE VIEW FRONTAL ECG 80248 W[facility] NÚÑEZ ROUTINE 9 [facility] ECG INC INC W/LEAST 12 LDS TRCG ONLY W/O I&R BLOOD 95077 [facility] NÚÑEZ COUNT 9 [facility] COMPLETE INC INC AUTO&AUTO DIFRNTL WBC BLOOD 86035 [facility] NÚÑEZ GASES ANY 9 [facility] INC INC COMBINATI ON PH PCO2 PO2 CO2 HCO3 NATRIURET 25480 W[facility] NÚÑEZ IC 9 [facility] PEPTIDE INC INC ECG 23616 DAT WAYNE, ROUTINE 9 [facility]ERGENC[facility] ECG SERVICES O W/LEAST 12 LDS ASSOCIATE I&R ONLY S COLLECTIO 12923 [facility] NÚÑEZ N VENOUS 9 [facility] BLOOD INC INC VENIPUNCT URE PROTHROMB 54490 [facility] NÚÑEZ IN TIME 9 [facility] INC INC BLD GLU A4253 LIBERTY LIBERTY TEST/REAG 9 MEDICAL MEDICAL T STRIPS SUPPLY SUPPLY HOME BLD GLU MON-50 NORMAL A4256 LIBERTY LIBERTY LOW AND 9 MEDICAL MEDICAL HIGH SUPPLY SUPPLY CALIBRATO R SOLUTION/ CHIPS LANCETS A4259 LIBERTY LIBERTY PER BOX 9 MEDICAL MEDICAL OF 100 SUPPLY SUPPLY HEPATIC 60593 [facility] NÚÑEZ FUNCTION 9 [facility] PANEL INC INC PROTHROMB 02460 [facility] NÚÑEZ IN TIME 9 [facility] [place] [address] W[place] NÚÑEZ THYROID 9 [facility] STIMULATI INC INC NG HORMONE TSH COLLECTIO 49912 [facility] NÚÑEZ N VENOUS 9 [facility] BLOOD INC INC VENIPUNCT URE COLLECTIO 75111 [facility] NÚÑEZ N VENOUS 9 [facility] BLOOD INC INC VENIPUNCT URE PROTHROMB 70940 [facility] NÚÑEZ IN TIME 9 [facility] INC INC OPHTH 02623 FAYE, FAYE, MEDICAL 9 SABINA A SABINA A XM&EVAL COMPRHNSV ESTAB PT 1/> COLLECTIO 65432 [facility] NÚÑEZ N VENOUS 9 [facility] BLOOD INC INC VENIPUNCT URE PROTHROMB 91918 [facility] NÚÑEZ IN TIME 9 [facility] INC INC LANCETS A4259 LIBERTY LIBERTY PER BOX 9 MEDICAL MEDICAL OF 100 SUPPLY SUPPLY BLD GLU A4253 LIBERTY LIBERTY TEST/REAG 9 MEDICAL MEDICAL T STRIPS SUPPLY SUPPLY HOME BLD GLU MON-50 PROTHROMB 66037 COMBINED COMBINED IN TIME 9 [facility] PHYSICIAN S LAB S LAB COLLECTIO 20712 COMBINED COMBINED N VENOUS 9 PHYSICIAN PHYSICIAN BLOOD S LAB S LAB VENIPUNCT URE COLLECTIO 33974 COMBINED COMBINED N VENOUS 9 PHYSICIAN PHYSICIAN BLOOD S LAB S LAB VENIPUNCT URE PROTHROMB 98593 COMBINED COMBINED IN TIME 9 [place] [address] [facility] [place] NIKKY, ABDOMEN 8 RADIOLOGY SON M W/O & W/CONTRAS T MATERIAL URNLS DIP 27682 [facility] COMMONWEA 8 LTH LTH STICK/TAB UROLOGY UROLOGY LET RGNT PSC PSC AUTO W/O MICROSCOP Y COLLECTIO 27525 [facility] N VENOUS 8 [facility] BLOOD VENIPUNCT URE CREATININ 66352 [facility] E BLOOD 8 [facility] DOPPLER 00162 [facility] ECHOCARD 8 [facility] PULSE CLINIC CLINIC WAVE PSC PSC W/SPECTRA L DISPLAY ECG 15699 [place], ROUTINE 8 ADJUNTAS CANDACE ECG CLINIC W/LEAST PSC 12 LDS W/I&R ECHO 43995 [facility] TRANSTHOR 8 [facility] AC R-T 2D CLINIC CLINIC W/WO PSC PSC M-MODE REC COMP DOP 53937 LINDSEY HERNANDESCARD 8 ADJUNTAS CANDACE COLOR CLINIC FLOW PSC VELOCITY MAPPING COLLECTIO 06673 COMBINED COMBINED N VENOUS 8 PHYSICIAN PHYSICIAN BLOOD S LAB S LAB VENIPUNCT URE PROTHROMB 62380 COMBINED COMBINED IN TIME 8 PHYSICIAN PHYSICIAN S LAB S LAB A4258 [facility] LIBERTY WERED 8 MEDICAL DENTAL BILLER SUPPLY SUPPLY FOR LANCET EACH BLD GLU A4253 [employer] LIBERTY TEST/REAG 8 MEDICAL MEDICAL T STRIPS SUPPLY SUPPLY HOME BLD GLU MON-50 NORMAL A4256 LIBERTY LIBERTY LOW AND 8 MEDICAL MEDICAL HIGH SUPPLY SUPPLY CALIBRATO R SOLUTION/ CHIPS LANCETS A4259 LIBERTY LIBERTY PER BOX 8 [facility]ICAL OF 100 SUPPLY SUPPLY ANES 58835 [facility]ON[facility] BALDERAS, TRANSURET 8 LTH MARÍA HRAL ANESTHESI V W/URETHRO A PSC CYSTOSCOP Y NOS GLUC BLD 48071 RONALDO HIGGINS GLUC MNTR 8 [facility] DEV MEDICAL MEDICAL CLEARED [facility] FDA SPEC HOME USE INJECTION J2250 RONALDO HIGGINS [address] [place] [address] [facility] PER [facility] 1 [place] [address] RONALDO HIGGINS SURG [address] [place] [address] PATHOLOGY [facility] GROSS&GUILLERMO ROSCOPIC EXAM CYSTOURET 94758 RONALDO HIGGINS HROSCOPY 8 [facility] WITH MEDICAL MEDICAL BIOPSY CENTER CENTER INJECTION J3010 RONALDO HIGGINS FENTANYL 8 REGIONAL REGIONAL [place] MEDICAL MEDICAL 0.1 MG [facility] INJECTION J2405 RONALDO HIGGINS 8 REGIONAL REGIONAL [facility] MEDICAL MEDICAL ON HCL [facility] PER 1 MG ECG 48238 [facility] NÚÑEZ ROUTINE 8 [facility] ECG INC INC W/LEAST 12 LDS TRCG ONLY W/O I&R COLLECTIO 75280 [facility] NÚÑEZ N VENOUS 8 [facility] BLOOD INC INC VENIPUNCT URE COMPREHEN 31406 [facility] NÚÑEZ SIVE 8 [facility] METABOLIC INC INC PANEL THROMBOPL 84259 [facility] NÚÑEZ ASTIN 8 [facility] TIME INC INC PARTIAL PLASMA/WH OLE BLOOD PROTHROMB 35955 W[place] NÚÑEZ IN TIME 8 [facility] INC INC RADIOLOGI 09019 W[place] NÚÑEZ C EXAM 8 [facility] CHEST 2 INC INC VIEWS FRONTAL&L ATERAL ECG 03357 [facility] WINTER, ROUTINE 8 [facility] W/LEAST PROF SERV 12 LDS I&R ONLY BLOOD 97770 W[place] NÚÑEZ COUNT 8 [facility] COMPLETE INC INC AUTO&[place] [address] [facility]TR[facility] MANJINDER SHER, ABDOMEN 8 RADIOLOGY SON Torres W/O & W/CONTRAS T MATERIAL CT PELVIS 03751 CNTRL MANJINDER SHER, W/O & 8 RADIOLOGY SON M W/CONTRAS T MATERIAL LANCETS A4259 [facility]OX 8 [facility] 100 3938 3938 BLD GLU A4253 [facility] TEST/REAG 8 [facility] T STRIPS 3938 3938 HOME BLD GLU MON-50 OPHTH 55890 NEYDA FAYE [facility] 8 SABINA A SABINA A XM&EVAL COMPRHNSV ESTAB PT 1/> Encounters Encounter Start End Date Code Location Performer Type Date EMERGENCY 43470 UZIEL HUGHES 6 6 PHYSICIAN DEPARTMEN S, PLL T VISIT MODERATE SEVERITY [facility] OUTPATIEN INC T EMERGENCY 92008 [facility] [address] [facility] DEPARTMEN INC T VISIT LIMITED/M INOR PROB OFFICE 10526 A C NELSON OUTPATIEN 6 6 SHAUN CAMERON T VISIT PSC 15 MINUTES OFFICE 20407 A C JEFFREY ELLY OUTPATIEN 6 6 SHAUN COOK T VISIT 5 PSC MINUTES OFFICE 97406 A C JEFFREY ELLY OUTPATIEN 6 6 SHAUN COOK T VISIT PSC 15 MINUTES OFFICE 82580 A C JEFFREY ELLY OUTPATIEN 6 6 SHAUN COOK T VISIT PSC 15 MINUTES OFFICE 91472 A C JEFFREY ELLY OUTPATIEN 5 5 SHAUN COOK T VISIT 5 PSC MINUTES OFFICE 78564 A C JEFFREY ELLY OUTPATIEN 5 5 SHAUN COOK T VISIT 5 PSC MINUTES EMERGENCY 16724 [facility] ACEVEDO 5 5 [facility] T VISIT P MODERATE SEVERITY OFFICE 00671 A C JEFFREY ELLY OUTPATIEN 5 5 SHAUN COOK T VISIT 5 PSC MINUTES OFFICE 33948 A C JEFFREY ELLY OUTPATIEN 5 5 SHAUN COOK T VISIT 5 PSC MINUTES OFFICE 26846 A C AMB OUTPATIEN 4 4 SHAUN COOK T VISIT PSC 15 MINUTES OFFICE 17016 A C KILPELA OUTPATIEN 4 4 SHAUN FRANCIS T VISIT PSC 15 MINUTES OFFICE 19721 A C JEFFREY ELLY OUTPATIEN 4 4 SHAUN COOK T VISIT 5 PSC MINUTES OFFICE 81308 A C JFEFREY ELLY OUTPATIEN 4 4 SHAUN COOK T VISIT 5 PSC MINUTES OFFICE 56254 JEFFREY ELLY BATRESES ELLY OUTPATIEN 4 4 T VISIT 5 MINUTES OFFICE 06610 JEFFREY NORIEGA ELLY OUTPATIEN 4 4 T VISIT 25 MINUTES OFFICE 19880 JEFFREYELENI SANABRIA JEFFREY ELLY OUTPATIEN 4 4 T VISIT 5 MINUTES OFFICE 68298 A C JEFFREY ELLY OUTPATIEN 3 3 SHAUN COOK T VISIT PSC 15 MINUTES OFFICE 84892 MOURA MARTELL OUTPATIEN 3 3 NEENA NEENA T NEW 30 MINUTES OFFICE 22088 A C KILPELA OUTPATIEN 3 3 SHAUN COOK JEA T VISIT PSC 25 MINUTES OFFICE 10441 A C JEFFREY SANABRIA OUTPATIEN 3 3 SHAUN COOK T VISIT PSC 10 MINUTES Emergency SRI Wilton Acevedo MD (ER) 3 18:43 3 20:14 [facility] EMERGENCY 54540 [facility] 3 3 [facility] DEPARTMEN INC T VISIT LOW/MODER SEVERITY [facility] - 3 3 [facility] OUTPATIEN INC T OFFICE 79783 JEFFREY NORIEGA ELLY OUTPATIEN 3 3 T VISIT 25 MINUTES [facility] - 2 2 [facility]EN [facility] T [facility] - 2 2 [facility] OUTPATIEN INC T OFFICE 95726 PODIATRIC LEYDI ABDIRASHID OUTPATIEN 2 2 FOOT & T VISIT ANKLE 25 SPECI MINUTES OFFICE 93604 A C JEFFREY ELLY OUTPATIEN 1 1 SHAUN COOK T VISIT PSC 15 MINUTES OFFICE 11417 A C INDIO OUTPATIEN 1 1 SHAUN COOK ABDIRASHID T VISIT 5 PSC MINUTES [facility] OUTPATIEN INC T OFFICE 33705 A C INDIO OUTPATIEN 1 1 SHAUN MENDENHALL T VISIT 5 PSC MINUTES OFFICE 46901 A C JEFFREY ELLY OUTPATIEN 1 1 SHAUN COOK T NEW 30 PSC MINUTES OFFICE 35240 A Joshua SANABRIA OUTPATIEN 1 1 SHAUN COOK T VISIT PSC 15 MINUTES [facility] 1 [facility] H[facility]PITAL [facility] - 1 1 [facility] OFFICE 42735 AVA HOLLEY ABDIRASHID OUTPATIEN 1 1 ANDREYRACQUEL VISIT CLINIC 25 PSC MINUTES [facility] - 1 1 [facility] - 1 1 [facility] - 1 1 [facility] - 0 0 [facility]PATI[facility] - 0 0 [facility] - 0 0 [facility]PAT[facility] - 0 0 [facility]PAT[facility] - 0 0 [facility]PATI[facility] - 0 0 [facility]PAT[facility]PITAL [facility] - 0 0 [facility]PATIEN [facility] OFFICE 05560 AVA HOLLEY OUTPATIEN 0 0 ENOC SHANTELL T VISIT CLINIC 15 PSC MINUTES HOSPITAL [facility] - 0 0 [facility]PATI[facility] - 0 0 [facility] - 0 0 [facility] - 0 0 [facility] - 0 0 [facility] - 0 0 [facility] OUTPATIEN [facility] HOSPITAL RENÉE - 0 0 [facility] OFFICE 89289 [place] CONNORSEN 0 0 [facility] Vilchis T VISIT UROLOGY 40 PSC MINUTES [facility] - 0 0 [facility]PATIEN [facility]PITAL [facility] - 9 9 [facility] OFFICE 10981 ANABELL HERNANDESPATIEN 9 9 ENOC Saini VISIT CLINIC 10 PSC MINUTES OFFICE 03709 [facility] [place] MEDELLINEN 9 9 ENOC Saini VISIT CLINIC 15 PSC MINUTES OFFICE 05533 [place] FIGUEROA OUTPATIEN 9 9 SARAH A SARAH A T VISIT 15 MINUTES [facility] - 9 9 [facility] - 9 9 [facility] - 9 9 [facility] - 9 9 [facility] - 9 9 [facility] - 9 9 [facility]PATI[facility] - 9 9 [facility]PATI[facility] - 9 9 [facility]PATIEN [facility]PITAL [facility] - 9 9 [facility] OUTPATIEN INC OFFICE 96957 CAROLINA FIGUEROA OUTPATIEN 9 9 SARAH A SARAH A T VISIT 15 MINUTES EMERGENCY 63964 DAT WAYNE, DEPT 9 9 EMERGENCY [place] VISIT SERVICES O HIGH SEVERITY& ASSOCIATE THREAT S [facility] - 9 9 [facility] OUTPATIEN [facility] EMERGENCY 15827 [facility] 9 9 [facility] VISIT MODERATE [facility]VERITY [facility] - [address] [facility] - 9 9 [facility] - 9 9 [facility] - 9 [address] [facility] OUTPATIEN [facility] [place] [address] 8 [facility] OUTPSYCHIATRIC T OFFICE 22609 [facility] CONNORS 8 8 [facility] AN Vilchis T VISIT UROLOGY 40 PSC MINUTES OFFICE 59106 JINNY STEARNS OUTPATIEN 8 8 ESTUARDO MARTE T VISIT 40 MINUTES HOSPITAL RONALDO - 8 8 [facility] 8 8 [facility]
--- OUTSIDE RECORDS SUMMARY | 2017-01-14 10:13 | External Medical Summary Rpt ---
Author Author , Organization [employer] Address Unknown Phone Unavailable Care Team Providers Care Tobacco Acreage Measurer Name Role Phone A Joshua DUNN MD [facility], A Unavailable Unavailable Joshua DUNN MD PSC [facility], Unavailable Unavailable [facility], Unavailable Unavailable [facility], Unavailable Unavailable [facility] Unavailable Unavailable [facility] LEYDI ABDIRASHID, LEYDI ABDIRASHID Unavailable Unavailable SHANTELL HOLLEY, Unavailable Unavailable SHANTELL HOLLEY KIMBERLY V, Unavailable Unavailable MARÍA BALDERAS ROLANDO, Unavailable Unavailable ESTUARDO STEARNS [facility] Unavailable Unavailable [facility], [facility] Unavailable Unavailable LAB, [facility] REPLACED BY [facility] Unavailable Unavailable PSC, REPLACED BY [facility] CROSSFIELD, DANNITA, Unavailable Unavailable CROSSFIELD, DANNITA SU [facility], Unavailable Unavailable SU [facility] Unavailable Unavailable [facility], [facility] Unavailable Unavailable [facility], [facility] Unavailable Unavailable [facility], [facility] Unavailable Unavailable [facility], DO[facility] DI[facility]ETIC [facility] FIELD AMB, FIELD AM[facility] Unavailable Unavailable ANGELINE GUILLERMO, ANGELINE Unavailable Unavailable GUILLERMO NELSON NIÑO Unavailable Unavailable [facility] Un[facility], [facility] Unavailable Unavailable HOSPITAL P, [facility] P SABINA FAYE, Unavailable Unavailable SABINA FAYE CHARLES M, Unavailable Unavailable SON SHER KILPELA JEA, KILPELA Unavailable Unavailable JEA MOURA NEENA, MOURA Unavailable Unavailable NEENA MOURA NEENA, MOURA Unavailable Unavailable NEENA MYRNA WINTER, Unavailable Unavailable MYRNA WINTER [facility] Unavailable Unavailable [facility], [facility] Unavailable Unavailable [facility], [facility] DAT JORDAN, Unavailable Unavailable DAT CANDELARIO, Unavailable Unavailable LITA GARCIAS JR, Unavailable Unavailable LITA RANDALL JEFFREY ELLY, JEFFREY ELLY Unavailable Unavailable JEFFREY ELLY, JEFFREY ELLY Unavailable Unavailable [facility] Unavailable Unavailable PSC, [facility] PSC SARAH FIGUEROA, Unavailable Unavailable SARAH FIGUEROA DAVID J, Unavailable Unavailable [facility], Unavailable Unavailable [facility], [facility]OT & Unavailable Unavailable [facility], Unavailable Unavailable [facility], Unavailable Unavailable [facility] INDIO ABDIRASHID, INDIO Unavailable Unavailable ABDIRASHID [id number], Unavailable Unavailable [id number] Unavailable Unavailable [id number] [address] [id number], [facility] [id number] # [id number] [facility] Unavailable Unavailable 3938, [facility] 3938 SADEK, SADEK Unavailable Unavailable [facility], [facility] Unavailable Unavailable [facility] Unavailable Unavailable [facility] SOKAN, SHOSHANA O, Unavailable Unavailable SOKAN, SHOSHANA O [facility], Unavailable Unavailable [facility] LEXIE SERNA, Unavailable Unavailable LEXIE SERNA FREDDIE L, Unavailable Unavailable [facility] Unavailable Unavailable [facility], [facility] Unavailable Unavailable JAYLEN, Sam Finney, Unavailable Unavailable Sam [place] Purpose Continuity of Care Document - 10-29-2007 through 2016 Problems Code Diagnosis DOS Provider Status E119 TYPE 2 08-11-2016 [facility] MELLITUS [facility] WITHOUT COMPLICATIO NS N3000 ACUTE 08-11-2016 [facility] CYSTITIS [facility] WITHOUT INC HEMATURIA N390 URINARY 08-11-2016 [facility] TRACT [facility], INFECTION [facility] SITE NOT SPECIFIED R319 HEMATURIA 08-11-2016 [facility]NSPECIFIED [facility] INC E1165 TYPE 2 04-22-2016 A Joshua DUNN DIABETES PSC MELLITUS WITH HYPERGLYCEM IA I10 ESSENTIAL 04-22-2016 A Joshua DUNN PRIMARY [facility] HYPERTENSIO N Z5181 ENCOUNTER 04-22-2016 A Joshua LEARY MD [facility] THERAPEUTIC DRUG LEVEL MONITORING 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 DUNN CURRENT USE PSC OF ANTICOAGULA NTS E1149 TYPE 2 01-25-2016 A Joshua DUNN DIABETES PSC MELLITUS W/OTH DIAB NEURO COMP I482 CHRONIC 01-25-2016 Sam DUNN ATRIAL [facility] FIBRILLATIO N E039 HYPOTHYROID 10-30-2015 A Joshua JONES MD PSC UNSPECIFIED V5869 LONG-TERM 04-28-2015 A Joshua DUNN (CURRENT) PSC USE OF OTHER MEDICATIONS V5883 ENCOUNTER 04-28-2015 A Joshua LEARY MD PSC THERAPEUTIC DRUG MONITORING 25483 DIAB W/O 04-14-2015 A Joshua DALTON MD PSC COMP TYPE II/UNS TYPE UNCNTRL 14207 DIAB W/O 03-30-2015 ALL COMP TYPE MEXICAN II/UNS NOT MEDICAL STATED UNCNTRL 78088 HYPERCALCEM 01-08-2015 [facility] 71347 ABDOMINAL 01-08-2015 [facility] PAIN OTHER [facility] P SITE 88488 ABNORMAL 01-08-2015 [facility] COAGULATION [facility] P 7881 DYSURIA 08-25-2014 A Joshua DUNN MD PSC V5861 LONG-TERM 08-25-2014 A Joshua DUNN (CURRENT) PSC USE OF ANTICOAGULA NTS 48678 DIAB 09-27-2013 JEFFREY ELLY W/NEURO MANIFESTS TYPE II/UNS TYPE UNCNTRL 2720 PURE 09-27-2013 JEFFREY ELLY HYPERCHOLES TEROLEMIA 4011 ESSENTIAL 09-27-2013 JEFFREY ELLY HYPERTENSIO N, BENIGN 2449 UNSPECIFIED 05-30-2013 A Joshua DUNN MD PSC HYPOTHYROID ISM 30977 UNSPECIFIED 04-11-2013 MOURA NEENA INFECTIVE OTITIS EXTERNA 470 DEVIATED 04-11-2013 MOURA NEENA NASAL SEPTUM 26246 ATRIAL 11-29-2012 A Joshua DUNN FIBRILLATIO PSC N 22668 DIVERTICULO 11-14-2012 SU SIS OF NANCY COLON 06158 DIVERTICULI 11-14-2012 [facility] TIS OF [facility] COLON INC 5718 OTHER 11-14-2012 SU CHRONIC NANCY NONALCOHOLI C LIVER DISEASE 5932 ACQUIRED 11-14-2012 SU CYST OF NANCY KIDNEY 69543 NUCLEAR 12-29-2011 DAT SCLEROSIS GRE 82699 UNSPECIFIED 12-29-2011 DAT SUBJECTIVE GRE VISUAL DISTURBANCE 18144 OTHER 12-29-2011 DAT VISUAL GRE DISTORTIONS AND ENTOPTIC PHENOMENA 65695 VAGINITIS&V 12-20-2011 JEFFREY SANABRIA ULVOVAGINIT IS DISEASES CLASS ELSW 73564 SECONDARY 11-22-2011 PODIATRIC LOCALIZED FOOT & OSTEOARTHRO ANKLE SPECI SIS LOWER LEG 07129 PAIN IN 11-22-2011 PODIATRIC JOINT, SITE FOOT & ANKLE SPECI UNSPECIFIED 44067 PAIN IN 11-22-2011 PODIATRIC JOINT, FOOT & LOWER LEG ANKLE SPECI 7291 UNSPECIFIED 11-22-2011 PODIATRIC MYALGIA FOOT & AND ANKLE SPECI MYOSITIS V0481 NEED 06-08-2011 A Joshua DUNN PROPHYLACTI PSC C VACCINATION &INOCULATIO N FLU 5999 UNSPECIFIED 05-31-2011 [facility] OF URETHRA&URI NARY TRACT 78789 URINARY 05-31-2011 [facility] 5990 URINARY 04-08-2011 A Joshua DUNN TRACT PSC INFECTION SITE NOT SPECIFIED V4365 KNEE JOINT 01-04-2011 [facility] BY OTHER MEDICAL MEANS EQUIP 2724 OTHER AND 12-23-2010 A Joshua DUNN UNSPECIFIED PSC HYPERLIPIDE DANA 4019 UNSPECIFIED 12-23-2010 A Joshua DUNN ESSENTIAL PSC HYPERTENSIO N 5368 DYSPEPSIA&O 12-23-2010 A Joshua DUNN THER SPEC PSC DISORDERS FUNCTION STOMACH 1890 MALIGNANT 11-01-2010 NEW NEOPLASM OF [place] [facility] PSC EXCEPT PELVIS 7962 ELEVATED BP 09-09-2010 [facility] WITHOUT DX INC HYPERTENSIO N 93904 DIAB W/O 04-24-2010 [facility] COMP TYPE I MEDICAL [JUV] NOT SUPPLY STATED UNCNTRL 19038 DIVERTICULO 09-30-2009 [facility] [place] SIS OF RADIOLOGY SMALL INTESTINE 591 HYDRONEPHRO 09-30-2009 [facility] SIS H UROLOGY PSC 4280 CONGESTIVE 08-06-2009 [facility] PSC UNSPECIFIED 64275 OSTEOARTHRO 08-06-2009 [facility] UNSPEC L REHAB WHETHER ASSOC PSC GEN/LOC LOWER LEG 4168 OTHER 08-05-2009 NEW CHRONIC [place] PULMONARY [facility] DISEASES 4660 ACUTE 07-29-2009 FIGUEROA, BRONCHITIS SARAH A 72392 HEMARTHROSI 03-27-2009 [facility] S, LOWER [facility] LEG INC 490 BRONCHITIS 02-24-2009 DAT NOT EMERGENCY SPECIFIED SERVICES ACUTE OR ASSOCIATES CHRONIC 24285 SHORTNESS 02-24-2009 [facility] 7906 OTHER 01-13-2009 [facility] ABNORMAL [facility] BLOOD INC CHEMISTRY 37876 OTHER 12-09-2008 FAYE, VITREOUS SABINA A OPACITIES 5939 UNSPECIFIED 08-13-2008 [facility] [place] DISORDER RADIOLOGY OF KIDNEY AND URETER 52274 NOCTURIA 08-13-2008 [facility] H UROLOGY PSC 59404 URGENCY OF 08-13-2008 [facility] URINATION H UROLOGY PSC V4589 OTHER 08-13-2008 [facility] [place] POSTSURGICA RADIOLOGY L STATUS OTHER 33075 COR 02-07-2008 [facility] U[facility]ICAL TYPE VESSEL [facility] [place] T [address] CYSTITIS 02-07-2008 [facility] CYSTICA [facility] 93630 OTHER 02-07-2008 [facility] SPECIFIED PATHOLOGY TYPES OF ASSOCIATES CYSTITIS V1053 PERSONAL 02-07-2008 [facility] MALIGNANT MEDICAL NEOPLASM CENTER RENAL PELVIS 15604 CORONARY 01-30-2008 [facility] CORONARY PROF SERV ARTERY V1052 PERSONAL 01-23-2008 [facility] [place] HISTORY OF RADIOLOGY MALIGNANT NEOPLASM OF KIDNEY Medications Na ND Rx Da Fi Fi Am Da Di Ph RX Ph St me C No te ll ll ou ys ag ar # ys at rm s nt no ma ic us Or Da si cy ia de te s n re d DI 00 05 10 5 12 30 [...] 00 06 07 00 60 15 RI 73 NI Ac AZ 17 -2 -0 .0 TE 88 CH ti EP 5- 3- 00 15 OL ve AM 92 20 [...] BL 93 ET 8 DI 00 02 03 00 60 15 RI 72 No Ac AZ 17 -1 -2 .0 TE 04 t ti EP 23 8- 6- 00 42 Av ve AM 92 20 20 AI [...] 93 TA 8 BL ET DI 00 01 03 00 60 15 [...] Given on t er Refuse d IIV INDIO No VACCIN 2010 ABDIRASHID E PRESER V FREE INCREA SED AG CONTEN T IM Procedures Procedure DOS Code Location Performer Comment SUSCEPTIB 18605 [facility] LTY STDY 6 [facility] ANTIMICRB INC INC IAL MICRO/AGA R DILUTJ CULTURE 13264 [facility] BACTERIAL 6 [facility] INC INC QUANTTATI VE COLONY COUNT URINE CULTURE 05834 [facility] BCT 6 [facility] ISOL&PRSM INC INC PTV ID ISOLATE EA URINE URNLS DIP 58030 [facility] 6 [facility] STICK/TAB INC INC LET REAGENT AUTO MICROSCOP Y HEMOGLOBI 81073 A Joshua DAMON N 6 SHAUN SU PSC ELY A1C LIPID 69140 A Joshua DAMON PANEL 6 SHAUN CAMERON PSC PROTHROMB 52282 A Joshua DAMON IN TIME 6 SHAUN CAMERON PSC PROTHROMB 28188 A Joshua SANABRIA IN TIME 6 SHAUN COOK PSC HEMOGLOBI 06437 A Joshua SANABRIA N 6 SHAUN SU PSC ELY A1C HOME E0607 ALL ALL BLOOD 6 [place]ICAN GLUCOSE MEDICAL MEDICAL MONITOR LANCETS A4259 ALL ALL PER BOX 6 [place] OF 100 MEDICAL MEDICAL BLD GLU A4253 ALL ALL TEST/REAG 6 [facility] MEX[place] T [facility] HOME BLD GLU MON-50 NORMAL A4256 ALL ALL LOW AND 6 [place]EXICAN HIGH MEDICAL MEDICAL CALIBRATO R SOLUTION/ CHIPS HEMOGLOBI 77636 A Joshua SANABRIA N 6 DUNN MD GLYCOSYLA PSC ELY A1C PROTHROMB 52749 Sam SANABRIA IN TIME 6 SHAUN COOK PSC SPRING-PO A4258 ALL ALL WERED 6 [place] DEVICE MEDICAL MEDICAL FOR LANCET EACH NORMAL A4256 ALL ALL LOW AND 6 [place] HIGH MEDICAL MEDICAL CALIBRATO R SOLUTION/ CHIPS BLD GLU A4253 ALL ALL TEST/REAG 6 [facility] MEX[place] T [facility] HOME BLD GLU MON-50 LANCETS A4259 ALL ALL PER BOX 6 [place] [address] MEDICAL MEDICAL REPL GEM A4233 ALL ALL ALKALINE 6 [place]ICAN [place] NOT J MEDICAL MEDICAL CELL GIANNA BG MON OWND PT LANCETS A4259 ALL ALL PER BOX 5 [place] [address] MEDICAL MEDICAL BLD GLU A4253 ALL ALL TEST/REAG 5 [facility] [facility] T [facility] BLD GLU MON-50 NORMAL A4256 ALL ALL LOW AND 5 [place] HIGH MEDICAL MEDICAL CALIBRATO R SOLUTION/ CHIPS NORMAL A4256 ALL ALL LOW AND 5 [place] HIGH MEDICAL MEDICAL CALIBRATO R SOLUTION/ CHIPS BLD GLU A4253 ALL ALL TEST/REAG 5 [facility] M[facility] T [facility] HOME BLD GLU MON-50 LANCETS A4259 ALL ALL PER BOX [address] [place] [address] MEDICAL MEDICAL REPL GEM A4233 ALL ALL ALKALINE 5 MEXICAN MEX[place] NOT J MEDICAL MEDICAL CELL GIANNA BG MON OWND PT SPRING-PO A4258 ALL ALL WERED 5 M[place]ICAN MEX[place] DEVICE MEDICAL MEDICAL FOR LANCET EACH LANCETS A4259 ALL ALL PER BOX 5 [place] [address] MEDICAL MEDICAL BLD GLU A4253 ALL ALL TEST/REAG 5 [place] T [facility] HOME BLD GLU MON-50 NORMAL A4256 ALL ALL LOW AND 5 [place] HIGH MEDICAL MEDICAL CALIBRATO R SOLUTION/ CHIPS NORMAL A4256 ALL ALL LOW AND 4 [place] HIGH MEDICAL MEDICAL CALIBRATO SUPPLIE SUPPLIE R SOLUTION/ CHIPS BLD GLU A4253 ALL ALL TEST/REAG 4 [facility] [facility] T [facility] HOME BLD SUPPLIE SUPPLIE GLU MON-50 LANCETS A4259 ALL ALL PER BOX [address] [place] [address] MEDICAL MEDICAL SUPPLIE SUPPLIE REPL GEM A4233 ALL ALL ALKALINE 4 MEXICAN MEXICAN NOT J MEDICAL MEDICAL CELL GIANNA SUPPLIE SUPPLIE BG MON OWND PT SPRING- A4258 ALL ALL WERED 4 M[place]ICAN [place]EX[place] DEVICE MEDICAL MEDICAL FOR SUPPLIE SUPPLIE LANCET EACH LANCETS A4259 ALL ALL PER BOX 4 [place] [address] MEDICAL MEDICAL SUPPLIE SUPPLIE BLD GLU A4253 ALL ALL TEST/REAG 4 [facility] T [facility] BLD SUPPLIE SUPPLIE GLU MON-50 NORMAL A4256 ALL ALL LOW AND 4 [place] HIGH MEDICAL MEDICAL CALIBRATO SUPPLIE SUPPLIE R SOLUTION/ CHIPS NORMAL A4256 ALL ALL LOW AND 4 [place] HIGH MEDICAL MEDICAL CALIBRATO SUPPLIE SUPPLIE R SOLUTION/ CHIPS BLD GLU A4253 ALL ALL TEST/REAG 4 [facility] M[facility] T [facility] BLD SUPPLIE SUPPLIE GLU MON-50 LANCETS A4259 ALL ALL PER BOX 4 [place] [address] MEDICAL MEDICAL SUPPLIE SUPPLIE REPL GEM A4233 ALL ALL ALKALINE 4 MEXICAN MEXICAN NOT J MEDICAL MEDICAL CELL GIANNA SUPPLIE SUPPLIE BG MON OWND PT SPRING-PO A4258 ALL ALL WERED 4 [place]EX[place] DEVICE MEDICAL MEDICAL FOR SUPPLIE SUPPLIE LANCET EACH LANCETS A4259 ALL ALL PER BOX 4 [place] [address] MEDICAL MEDICAL SUPPLIE SUPPLIE BLD GLU A4253 ALL ALL TEST/REAG 4 [facility] [facility] T [facility] BLD SUPPLIE SUPPLIE GLU MON-50 NORMAL A4256 ALL ALL LOW AND 4 [place] HIGH MEDICAL MEDICAL CALIBRATO SUPPLIE SUPPLIE R SOLUTION/ CHIPS NORMAL A4256 ALL ALL LOW AND 3 [place] HIGH MEDICAL MEDICAL CALIBRATO SUPPLIE SUPPLIE R SOLUTION/ CHIPS BLD GLU A4253 ALL ALL TEST/REAG 3 [place] T [facility] BLD SUPPLIE SUPPLIE GLU MON-50 LANCETS A4259 ALL ALL PER BOX 3 [place] [address] MEDICAL MEDICAL SUPPLIE SUPPLIE REPL GEM A4233 ALL ALL ALKALINE 3 M[place]ICAN M[place] NOT J MEDICAL MEDICAL CELL GIANNA SUPPLIE SUPPLIE BG MON OWND PT -24-201 A4258 ALL ALL WERED 3 M[place]ICAN MEXICAN DEVICE MEDICAL MEDICAL FOR SUPPLIE SUPPLIE LANCET EACH LANCETS A4259 ALL ALL PER BOX 3 [place] OF 100 MEDICAL MEDICAL SUPPLIE SUPPLIE BLD GLU A4253 ALL ALL TEST/REAG 3 [place] T [facility] BLD SUPPLIE SUPPLIE GLU MON-50 NORMAL A4256 ALL ALL LOW AND 3 [place] HIGH MEDICAL MEDICAL CALIBRATO SUPPLIE SUPPLIE R SOLUTION/ CHIPS URINLS 81575 A C A C DIP 3 SHAUN DUNN MD STICK/TAB PSC PSC LET REAGNT NON-AUTO MICRSCPY SPRING-PO A4258 US US WERED 3 [employer] HEALTH[employer] DEVICE E SUPPLY E SUPPLY FOR LLC LLC LANCET EACH NORMAL A4256 DOCTOR DOCTOR LOW AND 3 DIABETIC DIABETIC HIGH SUPPLY SUPPLY CALIBRATO LLC LLC R SOLUTION/ CHIPS BLD GLU A4253 DOCTOR DOCTOR TEST/REAG 3 DIABETIC DIABETIC T [facility]IPS SUPPLY [facility] HOME [facility] LLC LLC GLU MON-50 LANCETS A4259 DOCTOR DOCTOR PER BOX 3 DIABETIC DIABETIC OF 100 SUPPLY SUPPLY LLC LLC 3D 74244 [facility] RENDERING 3 [facility] INC INC W/INTERP& POSTPROC DIFF WORK STATION BLOOD 15725 [facility] COUNT 3 [facility] COMPLETE INC INC AUTO&[place] [address] [facility] LIPASE 3 [facility] INC INC URNLS DIP 81965 [facility]Z 3 [facility] STICK/TAB INC INC [place] [address] [facility] AMYLASE 3 [facility] INC INC COMPREHEN 86239 [facility] SIVE 3 [facility] METABOLIC INC INC PANEL PROTHROMB 61919 [facility] IN TIME 3 [place] [address] [facility] ABDOMEN & 3 [facility] PELVIS INC INC W/O CONTRAST MATERIAL SPRING-PO A4258 SMART SMART WERED 3 REMEDIES REMEDIES DEVICE FOR LANCET EACH BLD GLU A4253 SMART SMART TEST/REAG 3 REMEDIES REMEDIES T STRIPS HOME BLD GLU MON-50 NORMAL A4256 SMART SMART LOW AND 3 REMEDIES REMEDIES HIGH CALIBRATO R SOLUTION/ CHIPS LANCETS A4259 SMART SMART PER BOX 3 REMEDIES REMEDIES OF 100 LANCETS A4259 DOCTOR [...] [facility] LLC LLC GLU MON-50 EXTERNAL 91721 [facility] ECG 2 [facility] SCANNING INC INC ANALYSIS REPORT XTR ECG 58658 AIMEE YU 2 JR ANDREE JR ANDREE [facility] RHYTHM W/I&R UP TO 48 HRS XTR ECG 46626 [facility] & 48 HR 2 [facility] RECORDING INC INC BLD GLU A4253 SMART SMART TEST/REAG 2 [...] PER BOX 2 REMEDIES REMEDIES OF 100 SPRING-PO A4258 SMART SMART WERED 2 REMEDIES REMEDIES DEVICE FOR LANCET EACH SPRING-PO A4258 DOCTOR DOCTOR WERED 2 DIABETIC DIABETIC DEVICE SUPPLY SUPPLY FOR LLC LLC LANCET EACH REPL GEM A4235 DOCTOR DOCTOR LITHIUM 2 DIABETIC DIABETIC MED NECES SUPPLY SUPPLY GIANNA BG LLC LLC MON OWN PT EA LANCETS A4259 DOCTOR DOCTOR PER BOX 2 DIABETIC DIABETIC OF 100 SUPPLY SUPPLY LLC LLC NORMAL A4256 DOCTOR DOCTOR LOW AND 2 DIABETIC DIABETIC HIGH SUPPLY SUPPLY CALIBRATO LLC LLC R SOLUTION/ CHIPS BLD GLU A4253 DOCTOR DOCTOR TEST/REAG 2 DIABETIC DIABETIC T STRIPS SUPPLY [facility] LLC GLU MON-50 RADEX 34494 [facility] 2 [facility] AL 2/3 PSC VIEWS ECG 80981 [facility] ROUTINE 2 [facility] ECG INC INC W/LEAST 12 LDS TRCG ONLY W/O I&R ECG 99330 PODIATRIC LEYDI ABDIRASHID ROUTINE 2 FOOT & ECG ANKLE W/LEAST SPECI 12 LDS W/I&R LANCETS A4259 DOCTOR DOCTOR PER BOX 2 DIABETIC DIABETIC OF 100 SUPPLY SUPPLY LLC LLC NORMAL A4256 DOCTOR DOCTOR LOW AND 2 DIABETIC DIABETIC HIGH SUPPLY SUPPLY CALIBRATO LLC LLC R SOLUTION/ CHIPS BLD GLU A4253 DOCTOR DOCTOR TEST/REAG 2 DIABETIC DIABETIC T [facility] SUPPLY [facility] HOME [facility]LD LLC LLC GLU MON-50 SPRING-PO A4258 DOCTOR DOCTOR WERED 1 DIABETIC DIABETIC DEVICE SUPPLY SUPPLY FOR LLC LLC LANCET EACH ADMINISTR G0008 Sam BORJAS ATION OF 1 SHAUN MENDENHALL INFLUENZA PSC VIRUS VACCINE IIV 92329 A C INDIO VACCINE 1 SHAUN COOK ABDIRASHID PRESERV PSC FREE INCREASED AG CONTENT IM CULTURE 33965 [facility] BACTERIAL 1 DIAGNOSTI DIAGNOSTI CS CS QUANTTATI VE COLONY COUNT URINE CULTURE 99643 [facility] BCT 1 [facility]AGNOSTI DIAGNOSTI ISOL&PRSM CS CS PTV ID ISOLATE EA URINE COLLECTIO 74820 A C INDIO N VENOUS 1 SHAUN COOK ABDIRASHID BLOOD PSC VENIPUNCT URE URINLS 96156 A C INDIO DIP 1 SHAUN COOK ABDIRASHID STICK/TAB PSC LET REAGNT NON-AUTO MICRSCPY PROTHROMB 29734 A C A C IN TIME 1 SHAUN DUNN MD PSC PSC ECG 96770 [facility] ROUTINE 1 [facility] ECG INC INC W/LEAST 12 LDS TRCG ONLY W/O I&R URINLS 58862 A C INDIO DIP 1 SHAUN COOK ABDIRASHID STICK/TAB PSC LET REAGNT NON-AUTO MICRSCPY PROTHROMB 96999 A C A C IN TIME 1 SHAUN DUNN MD PSC PSC COLLECTIO 81662 A C INDIO N VENOUS 1 SHAUN COOK ABDIRASHID BLOOD PSC VENIPUNCT URE COLLECTIO 75057 A C JEFFREY ELLY N VENOUS 1 SHAUN COOK BLOOD PSC VENIPUNCT URE PROTHROMB 45663 A C JEFFREY ELLY IN TIME 1 SHAUN COOK PSC WALKER E0143 [place] [facility]OLDING 1 HOME HOME WHEELED MEDICAL MEDICAL ADJUSTABL EQUIP EQUIP E/FIXED HEIGHT PROTHROMB 18162 [facility] IN TIME 1 [facility] INC INC COLLECTIO 79543 [facility] N VENOUS 1 [facility] BLOOD INC INC VENIPUNCT URE BLD GLU A4253 [facility] TEST/REAG 1 MEDICAL MEDICAL T STRIPS SUPPLY SUPPLY HOME BLD GLU MON-50 NORMAL A4256 [facility] LOW AND 1 MEDICAL MEDICAL HIGH SUPPLY SUPPLY CALIBRATO R SOLUTION/ [facility]IPS LANCETS A4259 [facility] PER BOX 1 MEDICAL MEDICAL OF 100 SUPPLY SUPPLY PROTHROMB 71574 [facility]EZ IN TIME 1 [facility] INC INC COLLECTIO 43803 [facility] N VENOUS 1 [facility] BLOOD INC INC VENIPUNCT URE ECG 13556 [facility] ROUTINE 1 [facility] ECG INC INC W/LEAST 12 LDS TRCG ONLY W/O I&R XTRNL ECG 41619 [facility] [place] 1 [facility] S RHYTHM P P W/I&R UP TO 48 HRS EXTERNAL 97063 [facility] ECG 1 [facility] SCANNING INC INC ANALYSIS REPORT XTRNL ECG 28474 [facility] & 48 HR 1 [facility] RECORDING INC INC PROTHROMB 36800 [facility] IN TIME 1 [facility] INC INC COLLECTIO 91745 [facility] N VENOUS 1 [facility] BLOOD INC INC VENIPUNCT URE COLLECTIO 95455 [facility] N VENOUS 1 [facility] BLOOD INC INC VENIPUNCT URE PROTHROMB 60237 [facility] IN TIME 1 [facility] INC INC COMPREHEN 50659 [facility]ÑE[facility] SIVE 1 [facility] METABOLIC INC INC PANEL LIPID 52423 [facility] PANEL 1 [facility] INC INC HEMOGLOBI 01144 WILTON NÚÑEZ N 1 [facility] GLYCOSYLA INC INC ELY A1C PROTHROMB 86245 WILTON NÚÑEZ IN TIME 0 [facility] INC INC COLLECTIO 60986 WILTON NÚÑEZ N VENOUS 0 [facility] BLOOD INC INC VENIPUNCT URE REPL GEM [id number] [facility] ALKALINE 0 MEDICAL MEDICAL NOT J SUPPLY SUPPLY CELL GIANNA BG MON OWND PT NORMAL [id number] [facility] LOW AND 0 [facility] MEDICAL HIGH SUPPLY SUPPLY CALIBRATO R SOLUTION/ CHIPS BLD GLU [id number] [facility] TEST/REAG 0 MEDICAL MEDICAL T STRIPS SUPPLY SUPPLY HOME BLD GLU MON-50 LANCETS A4259 [facility] PER BOX 0 [facility]ICAL MEDICAL OF 100 SUPPLY SUPPLY PROTHROMB 87269 WILTON NÚÑEZ IN TIME 0 [facility] INC COLLECTIO 03339 WILTON NÚÑEZ N VENOUS 0 [facility] BLOOD INC INC VENIPUNCT URE COLLECTIO 78430 WILTON NÚÑEZ N VENOUS 0 [facility] BLOOD INC INC VENIPUNCT URE PROTHROMB 44741 WILTON NÚÑEZ IN TIME 0 [facility] INC INC LANCETS A4259 [facility] PER BOX 0 MEDICAL MEDICAL OF 100 SUPPLY SUPPLY BLD GLU A4253 [facility] TEST/REAG 0 MEDICAL MEDICAL T STRIPS SUPPLY SUPPLY HOME BLD GLU MON-50 NORMAL [id number] [facility] LOW AND 0 MEDICAL MEDICAL HIGH SUPPLY SUPPLY CALIBRATO R SOLUTION/ CHIPS COLLECTIO 48328 WILTON NÚÑEZ N VENOUS 0 [facility] BLOOD INC INC VENIPUNCT URE PROTHROMB 47667 WILTON NÚÑEZ IN TIME 0 [facility] INC INC PROTHROMB 12344 WILTON NÚÑEZ IN TIME 0 [facility] INC INC COLLECTIO 15127 WILTON NÚÑEZ N VENOUS 0 [facility] BLOOD INC INC VENIPUNCT URE CULTURE 61403 WILTON NÚÑEZ BACTERIAL 0 [facility] INC INC QUANTTATI VE COLONY COUNT URINE CULTURE 21735 WILTON NÚÑEZ BCT 0 [facility] ISOL&PRSM INC INC PTV ID ISOLATE EA URINE SUSCEPTIB 94496 WILTON NÚÑEZ LTY STDY 0 [facility] ANTIMICRB INC INC IAL MICRO/AGA R DILUTJ COLLECTIO 26311 WILTON NÚÑEZ N VENOUS 0 [facility] BLOOD INC INC VENIPUNCT URE PROTHROMB 09412 WILTON NÚÑEZ IN TIME 0 [facility] INC INC LANCETS A4259 [facility] PER BOX 0 [facility]ICAL OF 100 SUPPLY SUPPLY BLD GLU A4253 [facility] TEST/REAG 0 MEDICAL MEDICAL T STRIPS SUPPLY SUPPLY HOME BLD GLU MON-50 NORMAL [id number] [facility] LOW AND 0 MEDICAL MEDICAL HIGH SUPPLY SUPPLY CALIBRATO R SOLUTION/ CHIPS COLLECTIO 73453 [facility] N[facility] N VENOUS 0 [facility] BLOOD INC INC VENIPUNCT URE BASIC 11480 [facility] NÚÑ[facility] METABOLIC 0 [facility] PANEL INC INC CALCIUM TOTAL PROTHROMB 90478 [facility] NÚÑEZ IN TIME 0 [facility] INC INC PROTHROMB 84361 [facility] NÚÑEZ IN TIME 0 [facility] INC INC COLLECTIO 66671 [facility] N VENOUS 0 [facility] BLOOD INC INC VENIPUNCT URE PROTHROMB 18963 [facility] N[facility] IN TIME 0 [facility] INC INC COLLECTIO 43393 [facility] N[facility] N VENOUS 0 [facility] BLOOD INC INC VENIPUNCT URE COLLECTIO 12061 [facility] N[facility] N VENOUS 0 [facility] BLOOD INC INC VENIPUNCT URE PROTHROMB 69622 [facility] N[facility] IN TIME 0 [facility] INC INC PROTHROMB 06191 [facility] N[facility] IN TIME 0 [facility] INC INC COLLECTIO 70701 IWL[facility] NÚÑE[facility] N VENOUS 0 [facility] BLOOD INC INC VENIPUNCT URE PROTHROMB 01572 [facility] N[facility]EZ IN TIME 0 [facility] INC INC LANCETS A4259 [facility] PER BOX 0 [facility] OF 100 SUPPLY SUPPLY COLLECTIO 17564 [facility] N[facility] N VENOUS 0 [facility] BLOOD INC INC VENIPUNCT URE BLD GLU A4253 [facility] TEST/REAG 0 MEDICAL MEDICAL T STRIPS SUPPLY SUPPLY HOME BLD GLU MON-50 COLLECTIO 12484 [facility] N VENOUS 0 [facility] BLOOD VENIPUNCT URE CREATININ 94880 [facility] E BLOOD [address] [facility] [address] PELVIS 30827 COMMON[facility] PABLO, W/O & 0 LTH AN L W/[place] [address] [facility] PABLO, ABDOMEN 0 LTH AN L W/O & UROLOGY W/CONTRAS PSC T MATERIAL PROTHROMB 32362 [facility] N[facility] IN TIME 0 [facility] INC INC COLLECTIO 33351 [facility] NÚÑEZ N VENOUS 0 [facility] BLOOD INC INC VENIPUNCT URE PHYSICAL 91111 PROFESSIO CROSSFIEL THERAPY 9 NAL REHAB D, EVALUATIO ASSOC DANNITA N PSC THERAPEUT 66391 PROFESSIO CROSSFIEL IC PX 1/> 9 NAL REHAB D, AREAS ASSOC DANNITA EACH 15 PSC MIN EXERCISES XTRNL ECG 92412 [place], & 48 HR 9 [facility] RECORD [facility]IN[facility] SCAN STOR PSC W/R&I ECG 84963 [place], ROUTINE 9 LESLIE CANDACE ECG CLINIC W/LEAST PSC 12 LDS W/I&R LANCETS A4259 [facility] PER BOX 9 [facility] 100 SUPPLY SUPPLY BLD GLU A4253 [facility] TEST/REAG 9 [facility]ICAL MEDICAL T STRIPS SUPPLY SUPPLY HOME BLD GLU MON-50 NORMAL A4256 [facility] LOW AND 9 MEDICAL MEDICAL HIGH SUPPLY SUPPLY CALIBRATO R SOLUTION/ CHIPS COLLECTIO 38076 [facility] N[facility] N VENOUS 9 [facility] BLOOD INC INC VENIPUNCT URE CREATININ 02279 [facility] E BLOOD 9 [facility] INC INC PROTHROMB 71338 [facility] N[facility]ÑE[facility] IN TIME 9 [facility] INC INC PROTHROMB 49927 [facility] IN TIME 9 [facility] INC INC COLLECTIO 55480 [facility] N[facility] N VENOUS 9 [facility] BLOOD INC INC VENIPUNCT URE COLLECTIO 99024 [facility] N[facility] N VENOUS 9 [facility] BLOOD INC INC VENIPUNCT URE PROTHROMB 03587 [facility] N[facility] IN TIME 9 [facility] INC INC COLLECTIO 42663 [facility] N[facility] N VENOUS 9 [facility] BLOOD INC INC VENIPUNCT URE PROTHROMB 18517 [facility] N[facility] IN TIME 9 [facility] INC INC PROTHROMB 45261 [facility] NÚÑ[facility]Z IN TIME 9 [facility] INC INC COLLECTIO 02087 [facility] N[facility] N VENOUS 9 [facility] BLOOD INC INC VENIPUNCT URE LANCETS A4259 [facility] PER BOX 9 [facility] OF 100 SUPPLY SUPPLY NORMAL A4256 [facility]OW AND 9 [facility] HIGH SUPPLY SUPPLY CALIBRATO R SOLUTION/ CHIPS BLD GLU A4253 [facility] TEST/REAG 9 MEDICAL MEDICAL T STRIPS SUPPLY SUPPLY HOME BLD GLU MON-50 COLLECTIO 55137 [facility] NÚÑE[facility] N VENOUS 9 [facility] BLOOD INC INC VENIPUNCT URE PROTHROMB 43862 [facility] NÚÑEZ IN TIME 9 [facility] INC INC PROTHROMB 75302 [facility] NÚÑEZ IN TIME 9 [facility] INC INC COLLECTIO 41490 [facility] NÚÑ[facility] N VENOUS 9 [facility] BLOOD INC INC VENIPUNCT URE COLLECTIO 78875 [facility] NÚÑE[facility] N VENOUS 9 [facility] BLOOD INC INC VENIPUNCT URE PROTHROMB 74869 [facility] NÚÑEZ IN TIME 9 [facility] INC INC PROTHROMB 00709 [facility] NÚÑEZ IN TIME 9 [facility] INC INC COLLECTIO 94722 [facility] NÚÑE[facility] N VENOUS 9 [facility] BLOOD INC INC VENIPUNCT URE COMPREHEN 51320 [facility] NÚÑE[facility] SIVE 9 [facility] METABOLIC INC INC PANEL PROTHROMB 37075 [facility] NÚÑEZ IN TIME 9 [facility] INC INC ECG 97395 [facility] NÚÑEZ ROUTINE 9 [facility] ECG INC INC W/LEAST 12 LDS TRCG ONLY W/O I&R NATRIURET 88147 [facility] IC 9 [facility] PEPTIDE INC INC BLOOD 22357 [facility] N[facility] GASES ANY 9 [facility] INC INC COMBINATI ON PH PCO2 PO2 CO2 HCO3 RADIOLOGI 55641 Joshua BANG 9 MEDICAL LITA P EXAMINATI IMAGING ON CHEST ASSOCIATE SINGLE S VIEW FRONTAL ECG 85996 DAT WAYNE, ROUTINE 9 EMERG[facility] ECG SERVICES O W/LEAST 12 LDS ASSOCIATE I&R ONLY S BLOOD 75564 [facility] NÚÑEZ COUNT 9 [facility] COMPLETE INC INC AUTO&AUTO DIFRNTL WBC THROMBOPL 58854 [facility] NÚÑE[facility] ASTIN 9 [facility] TIME INC INC PARTIAL PLASMA/WH OLE BLOOD PROTHROMB 68278 [facility] NÚÑEZ IN TIME 9 [facility] INC INC COLLECTIO 25168 [facility] NÚÑEZ N VENOUS 9 [facility] BLOOD INC INC VENIPUNCT URE LANCETS A4259 [facility] PER BOX 9 [facility] 100 SUPPLY SUPPLY BLD GLU A4253 [facility] TEST/REAG 9 MEDICAL MEDICAL T STRIPS SUPPLY SUPPLY HOME BLD GLU MON-50 NORMAL A4256 [facility] LOW AND 9 MEDICAL MEDICAL HIGH SUPPLY SUPPLY [place] [address] [facility] NÚÑEZ THYROID 9 [facility] STIMULATI INC INC NG HORMONE TSH COLLECTIO 66049 [facility] NÚÑEZ N VENOUS 9 [facility] BLOOD INC INC VENIPUNCT URE PROTHROMB 02412 [facility] NÚÑEZ IN TIME 9 [facility] INC INC HEPATIC 67618 [facility] NÚÑE[facility] FUNCTION 9 [facility] PANEL INC INC PROTHROMB 56594 [facility] NÚÑEZ IN TIME 9 [facility] INC INC COLLECTIO 05099 [facility] NÚÑEZ N VENOUS 9 [facility] BLOOD INC INC VENIPUNCT URE OPHTH 40206 FAYE, FAYE, MEDICAL 9 SABINA A SABINA A XM&EVAL COMPRHNSV ESTAB PT 1/> PROTHROMB 86263 [facility] NÚÑEZ IN TIME 9 [facility] INC INC COLLECTIO 58295 [facility] NÚÑE[facility] N VENOUS 9 [facility] BLOOD INC INC VENIPUNCT URE LANCETS A4259 [facility] PER BOX 9 [facility]ICAL OF 100 SUPPLY SUPPLY BLD GLU A4253 [facility] TEST/REAG 9 MEDICAL MEDICAL T STRIPS SUPPLY SUPPLY HOME BLD GLU MON-50 COLLECTIO 71805 COMBINED COMBINED N VENOUS 9 PHYSICIAN PHYSICIAN BLOOD S LAB S LAB VENIPUNCT URE PROTHROMB 31959 COMBINED COMBINED IN TIME 9 PHYSICIAN PHYSICIAN S LAB S LAB PROTHROMB 86530 COMBINED COMBINED IN TIME 9 [facility] PHYSICIAN S LAB S LAB COLLECTIO 37583 COMBINED COMBINED N VENOUS 9 PHYSICIAN PHYSICIAN BLOOD S LAB S LAB VENIPUNCT URE COLLECTIO 12976 [facility] N VENOUS 8 [facility] [place] [address] [facility] PABLO, ABDOMEN 8 LTH AN L W/O & UROLOGY W/CONTRAS PSC T MATERIAL URNLS DIP 85836 COMMON[facility] COMMONWEA 8 LTH LTH STICK/TAB UROLOGY UROLOGY LET RGNT PSC PSC AUTO W/O MICROSCOP Y CREATININ 68857 [facility] E BLOOD 8 [facility] ECG 04439 AVA MEDELLIN ROUTINE 8 LESLIE EMMANUEL Saini ECG CLINIC W/LEAST PSC 12 LDS W/I&R ECHO 17822 NEW AVA TRANSTHOR 8 [facility] AC R-T 2D CLINIC CLINIC W/WO PSC PSC M-MODE REC COMP DOP 74377 AVA MEDELLIN ECHOCARD 8 LESLIE EMMANUEL Saini COLOR CLINIC FLOW PSC VELOCITY MAPPING DOPPLER 30794 NEW AVA ECHOCARD 8 [facility] PULSE CLINIC CLINIC WAVE PSC PSC W/SPECTRA L DISPLAY PROTHROMB 21304 COMBINED COMBINED IN TIME 8 PHYSICIAN PHYSICIAN S LAB S LAB COLLECTIO 36188 COMBINED COMBINED N VENOUS 8 PHYSICIAN PHYSICIAN BLOOD S LAB S LAB VENIPUNCT URE SPRING-PO A4258 [facility] WERED 8 MEDICAL DOCUMENTATION SPECIALIST SUPPLY SUPPLY FOR LANCET EACH LANCETS A4259 [facility] PER BOX 8 [facility]ICAL OF 100 SUPPLY SUPPLY BLD GLU A4253 [facility] TEST/REAG 8 MEDICAL MEDICAL T STRIPS SUPPLY SUPPLY HOME BLD GLU MON-50 NORMAL A4256 [facility] LOW AND 8 MEDICAL MEDICAL HIGH SUPPLY SUPPLY CALIBRATO R SOLUTION/ [facility]IPS CYSTOURET 81244 RONALDO HIGGINS HROSCOPY 8 [facility] WITH MEDICAL [place]ICAL [place] [address] [place] TANOUS, SURG 8 EDWARD J PATHOLOGY PATHOLOGY GROSS&GUILLERMO ASSOCIATE ROSCOPIC S EXAM INJECTION J2250 RONALDO HIGGINS 8 [facility] PER CENTER CENTER 1 MG INJECTION J3010 RONALDO HIGGINS FENTANYL 8 [facility] REG[facility]AL [facility] MEDICAL MEDICAL 0.1 MG CENTER CENTER INJECTION J2405 RONALDO HIGGINS 8 [facility] ON HCL CENTER CENTER PER 1 MG ANES 43611 [facility] ANDREY, TRANSURET 8 [facility] HRAL ANESTHESI V W/URETHRO A PSC CYSTOSCOP Y NOS GLUC BLD 36463 RONALDO HIGGINS GLUC MNTR 8 [facility] DEV MEDICAL MEDICAL CLEARED CENTER CENTER FDA SPEC HOME USE COMPREHEN 14509 [facility] NÚÑEZ SIVE 8 [facility] METABOLIC INC INC PANEL ECG 57863 [facility] NÚÑEZ ROUTINE 8 [facility] ECG INC INC W/LEAST 12 LDS TRCG ONLY W/O I&R RADIOLOGI 33071 [facility] M[facility]ENZIE EXAM 8 MEDICAL LITA P CHEST 2 IMAGING VIEWS ASSOCIATE FRONTAL&L S ATERAL ECG 06425 RAÚL FUENTES 8 [facility] W/LEAST PROF SERV 12 LDS I&R ONLY PROTHROMB 18018 [facility] NÚÑEZ IN TIME 8 [facility] INC INC COLLECTIO 31520 [facility] NÑÚEZ N VENOUS 8 [facility] BLOOD INC INC VENIPUNCT URE THROMBOPL 96775 [facility] NÚÑEZ ASTIN 8 [facility] TIME INC INC PARTIAL PLASMA/WH OLE BLOOD BLOOD 52537 [facility] NÚÑEZ COUNT 8 [facility] COMPLETE INC INC AUTO&[place] [address] CNTRL MANJINDER SHER, ABDOMEN 8 RADIOLOGY SON M W/O & W/CONTRAS T MATERIAL CT PELVIS 20735 CNTRL MANJINDER SHER, W/O & 8 RADIOLOGY SON M W/CONTRAS T MATERIAL BLD GLU A4253 [facility] TEST/REAG 8 [facility]Y PHARMACY T STRIPS 0706 8571 HOME BLD GLU MON-50 LANCETS A4259 [facility] PER BOX 8 PHARMACY PHARMACY OF 100 8619 3934 [facility] [address] NEYDA FAYE, [facility] 8 SABINA A SABINA A XM&EVAL COMPRHNSV ESTAB PT 1/> Encounters Encounter Start End Date Code Location Performer Type Date EMERGENCY 71152 UZIEL HUGHES 6 6 PHYSICIAN [facility] T VISIT MODERATE SEVERITY EMERGENCY 66977 [facility] 6 6 [facility] T VISIT LIMITED/M [facility] - 6 6 [facility] T OFFICE 74435 A Joshua DAMON OUTPATIEN 6 6 SHAUN CAMERON T VISIT PSC 15 MINUTES OFFICE 51169 A Joshua MURPHY ELLY OUTPATIEN 6 6 SHAUN COOK T VISIT 5 PSC MINUTES OFFICE 81558 A Joshua MURPHY ELLY OUTPATIEN 6 6 SHAUN COOK T VISIT PSC 15 MINUTES OFFICE 43906 A Joshua MURPHY ELLY OUTPATIEN 6 6 SHAUN COOK T VISIT PSC 15 MINUTES OFFICE 25461 A Joshua MURPHY ELLY OUTPATIEN 5 5 SHAUN COOK T VISIT 5 PSC MINUTES OFFICE 90837 A Joshua MURPHY ELLY OUTPATIEN 5 5 SHAUN COOK T VISIT 5 PSC MINUTES EMERGENCY 13472 W[facility] MARCUS 5 5 [facility] T VISIT P MODERATE SEVERITY OFFICE 38377 A Joshua MURPHY ELLY OUTPATIEN 5 5 SHAUN COOK T VISIT 5 PSC MINUTES OFFICE 62707 A Joshua MURPHY ELLY OUTPATIEN 5 5 SHAUN COOK T VISIT 5 PSC MINUTES OFFICE 40788 A C FIELD NICE OUTPATIEN 4 4 SHAUN COOK T VISIT PSC 15 MINUTES OFFICE 14273 A C KILPELA OUTPATIEN 4 4 SHAUN FRANCIS T VISIT PSC 15 MINUTES OFFICE 86292 A C JEFFREY ELLY OUTPATIEN 4 4 SHAUN COOK T VISIT 5 PSC MINUTES OFFICE 39631 A C JEFFREY ELLY OUTPATIEN 4 4 SHAUN COOK T VISIT 5 PSC MINUTES OFFICE 05365 JEFFREYELENI SANABRIA JEFFREY ELLY OUTPATIEN 4 4 T VISIT 5 MINUTES OFFICE 66246 JEFFREYELENI MARTINEZES ELLY OUTPATIEN 4 4 T VISIT 25 MINUTES OFFICE 14512 JEFFREYELENI SANABRIA JEFFREY ELLY OUTPATIEN 4 4 T VISIT 5 MINUTES OFFICE 00023 A C JEFFREY ELLY OUTPATIEN 3 3 SHAUN COOK T VISIT PSC 15 MINUTES OFFICE 93254 MARTELL MOURA OUTPATIEN 3 3 NEENA NEENA T NEW 30 MINUTES OFFICE 93002 A C JESUSPELA OUTPATIEN 3 3 SHAUN FRANCIS T VISIT PSC 25 MINUTES OFFICE 83923 A C JEFFREY ELLY OUTPATIEN 3 3 SHAUN COOK T VISIT PSC 10 MINUTES [facility] - 3 3 [facility] OUTPATIEN INC T EMERGENCY 56154 [facility] 3 3 [facility] DEPARTMEN INC T VISIT LOW/MODER SEVERITY OFFICE 33846 JEFFREY NORIEGA ELLY OUTPATIEN 3 3 T VISIT 25 MINUTES [facility] - 2 2 [facility] OUTPATIEN INC T OFFICE 76543 PODIATRIC LEYDI ABDIRASHID OUTPATIEN 2 2 FOOT & T VISIT ANKLE 25 SPECI MINUTES [facility] - 2 2 [facility] OUTPATIEN INC T OFFICE 69643 A C JEFFREY ELLY OUTPATIEN 1 1 SHAUN COOK T VISIT PSC 15 MINUTES OFFICE 56245 A C INDIO OUTPATIEN 1 1 SHAUN MENDENHALL T VISIT 5 PSC MINUTES [facility] 1 [facility] OUTPATIEN INC OFFICE 21313 A C INDIO OUTPATIEN 1 1 SHAUN MENDENHALL T VISIT 5 PSC MINUTES OFFICE 21223 A C JEFFREY ELLY OUTPATIEN 1 1 SHAUN COOK T NEW 30 PSC MINUTES OFFICE 96953 A C JEFFREY ELLY OUTPATIEN 1 1 SHAUN COOK T VISIT PSC 15 MINUTES [facility] 1 1 [facility]EN [facility] - 1 1 [facility]EN [facility] - 1 1 [facility] OUTPATIEN [facility] OFFICE 38930 AVA HOLLEY ABDIRASHID OUTPATIEN 1 1 ENOC VISIT CLINIC 25 PSC MINUTES [facility] - 1 1 [facility] - 1 1 [facility] - 0 0 [facility]PATI[facility] - 0 0 [facility]PATIEN INC [facility] - 0 0 [facility] - 0 0 [facility] OUTPATIEN INC [facility] - 0 0 [facility]PATIEN [facility] - 0 0 [facility] - 0 0 [facility] OUTPATIEN INC OFFICE 31331 AVA HOLLEY, OUTPATIEN 0 0 ENOC STINSON T VISIT CLINIC 15 PSC MINUTES [facility]OS[facility] - 0 0 [facility] - 0 0 [facility] - 0 0 [facility]PATI[facility] - 0 0 [facility] - 0 0 [facility] - 0 0 [facility] OUTPATIEN [facility] OFFICE 81501 VIGRINIA CONNORSEN 0 0 [facility] AN Vilchis VISIT UROLOGY 40 PSC MINUTES HOSPITAL PSY[facility]AT[facility] - 0 0 [facility] - 0 0 [facility] OUTPATIEN [facility] - 9 9 [facility]PATIEN [facility] OFFICE 87770 [place] HERNANDES 9 9 ENOC Saini VISIT CLINIC 10 PSC MINUTES OFFICE 58038 [place] HERNANDES 9 9 ENOC Saini VISIT CLINIC 15 PSC MINUTES OFFICE 51114 CAROLINA FIGUEROA OUTPATIEN 9 9 SARAH Vargas T VISIT 15 MINUTES [facility] [place] - 9 9 [facility] OUT[facility]IEN [facility] - 9 9 [facility]PATI[facility] - 9 9 [facility]PATI[facility] - 9 9 [facility]PATI[facility] - 9 9 [facility]PATI[facility] - 9 9 [facility]PATI[facility] - 9 9 [facility] - 9 9 [facility] [place] - 9 9 [facility] OFFICE 26356 CAROLINA FIGUEROA OUTPATIEN 9 9 SARAH Vargas T VISIT 15 MINUTES [facility]OSPITAL [facility] - 9 9 [facility] EMERGENCY 50191 DAT WAYNE, DEPT 9 9 EMERGENCY [facility] VISIT SERVICES O HIGH SEVERITY& ASSOCIATE THREAT S FUN EMERGENCY 33592 [facility] 9 9 [facility] VISIT MODERATE SEVERITY [facility] - 9 9 [facility] 9 [facility] - 9 9 [facility] OFFICE 58979 [place] CONNORS 8 8 [facility] AN L T VISIT UROLOGY 40 PSC MINUTES [facility] PSYCHIATRIC - 8 8 [facility] T OFFICE 48576 JINNY STEARNS OUTPATIEN 8 8 ESTUARDO MARTE T VISIT 40 MINUTES [facility] RONALDO - 8 8 [facility] - 8 8 [facility]
--- OUTSIDE RECORDS SUMMARY | 2017-01-14 10:13 | External Medical Summary Rpt ---
Author Author , Organization [employer] Address Unknown Phone Unavailable Care Team Providers Care Program Developer Name Role Phone A Joshua DUNN MD [facility], A Unavailable Unavailable Joshua DUNN MD [facility], Unavailable Unavailable [facility], Unavailable Unavailable [facility], Unavailable Unavailable [facility] Unavailable Unavailable [facility], [facility] LEYDI ABDIRASHID, LEYDI ABDIRASHID Unavailable Unavailable SHANTELL HOLLEY, Unavailable Unavailable SHANTELL HOLLEY KIMBERLY V, Unavailable Unavailable MARÍA BALDERAS ROLANDO, Unavailable Unavailable ESTUARDO STEARNS [facility] Unavailable Unavailable [facility], [facility]available Unavailable LAB, [facility] Unavailable Unavailable PSC, [facility] CROSSFIELD, DANNITA, Unavailable Unavailable CROSSFIELD, DANNITA SU [facility], Unavailable Unavailable [facility] Unavailable Un[facility] Unavailable Un[facility] Unavailable [facility] Unavailable Unavailable [facility], [facility], [facility] Unavailable Unavailable ANGELINE GUILLERMO, ANGELINE Unavailable Unavailable GUILLERMO NELSON NIÑO Unavailable Unavailable [facility] Un[facility] Un[facility], [facility] Un[facility], [facility] SABINA FAYE, Unavailable Unavailable SABINA FAYE [...] JEFFREY ELLY, JEFFREY ELLY Unavailable Unavailable [facility] Unavailable Unavailable PSC, [facility] PSC SARAH FIGUEROA, Unavailable Unavailable SARAH FIGUEROA DAVID J, Unavailable Unavailable [facility], Unavailable Unavailable [facility], [facility] & Unavailable Unavailable [facility], Unavailable Unavailable [facility], Unavailable Unavailable [facility] INDIO ABDIRASHID, INDIO Unavailable Unavailable ABDIRASHID [id number], Unavailable Unavailable [id number] Unavailable Unavailable [id number] [address] [id number], [facility] [id number] [address] [id number] [facility] Unavailable Unavailable 3938, [facility]38 SADEK, SADEK Unavailable Unavailable [facility], [facility] Unavailable Unavailable [facility] Unavailable Unavailable [facility] SOKAN, SHOSHANA O, Unavailable Unavailable SOKAN, SHOSHANA O [facility], Unavailable Unavailable [facility] LEXIE SERNA, Unavailable Unavailable LEXIE SERNA FREDDIE L, Unavailable Unavailable [facility] Unavailable Unavailable [facility], [facility], [facility] Unavailable Unavailable JAYLEN, Sam Finney, Unavailable Unavailable Sam [place] Purpose Continuity of Care Document - 10-29-2007 through 2016 Problems Code Diagnosis DOS Provider Status E119 TYPE 2 08-11-2016 [facility] MELLITUS INC WITHOUT COMPLICATIO NS N3000 ACUTE 08-11-2016 [facility] CYSTITIS [facility] WITHOUT INC HEMATURIA N390 URINARY 08-11-2016 [facility], INFECTION [facility] SITE NOT SPECIFIED R319 HEMATURIA 08-11-2016 [facility]NSPECIFIED [facility] INC E1165 TYPE 2 04-22-2016 A Joshua DUNN DIABETES PSC MELLITUS WITH HYPERGLYCEM IA I10 ESSENTIAL 04-22-2016 A Joshua DUNN PRIMARY [facility] HYPERTENSIO N Z5181 ENCOUNTER 04-22-2016 A Joshua LEARY MD [facility] THERAPEUTIC DRUG LEVEL MONITORING Z7901 MONKEY KEEPER 04-22-2016 Sam DUNN CURRENT USE PSC OF ANTICOAGULA NTS E1149 TYPE 2 01-25-2016 A Joshua DUNN DIABETES PSC MELLITUS W/OTH DIAB NEURO COMP I482 CHRONIC 01-25-2016 Sam DUNN ATRIAL [facility] FIBRILLATIO N E039 HYPOTHYROID 10-30-2015 A Joshua JONES MD PSC UNSPECIFIED V5869 LONG-TERM 04-28-2015 A Joshua DUNN (CURRENT) PSC USE OF OTHER MEDICATIONS V5883 ENCOUNTER 04-28-2015 A Joshua LEARY MD PSC THERAPEUTIC DRUG MONITORING 31037 DIAB W/O 04-14-2015 A Joshua DALTON MD PSC COMP TYPE II/UNS TYPE UNCNTRL 40128 DIAB W/O 03-30-2015 ALL COMP TYPE MALAYSIAN II/UNS NOT MEDICAL STATED UNCNTRL 99347 HYPERCALCEM 01-08-2015 [facility] P 77606 ABDOMINAL 01-08-2015 [facility] PAIN OTHER [facility] P SITE 74579 ABNORMAL 01-08-2015 [place] [facility] P 7881 DYSURIA 08-25-2014 A Joshua DUNN MD PSC V5861 LONG-TERM 08-25-2014 A Joshua DUNN (CURRENT) PSC USE OF ANTICOAGULA NTS 44622 DIAB 09-27-2013 JEFFREY ELLY W/NEURO MANIFESTS TYPE II/UNS TYPE UNCNTRL 2720 PURE 09-27-2013 JEFFREY ELLY HYPERCHOLES TEROLEMIA 4011 ESSENTIAL 09-27-2013 JEFFREY ELLY HYPERTENSIO N, BENIGN 2449 UNSPECIFIED 05-30-2013 A Joshua DUNN MD PSC HYPOTHYROID ISM 82758 UNSPECIFIED 04-11-2013 MOURA NEENA INFECTIVE OTITIS EXTERNA 470 DEVIATED 04-11-2013 MOURA NEENA NASAL SEPTUM 09508 ATRIAL 11-29-2012 A Joshua DUNN FIBRILLATIO PSC N 90332 DIVERTICULO 11-14-2012 SU SIS OF NANCY COLON 54891 DIVERTICULI 11-14-2012 [facility] TIS OF [facility] COLON INC 5718 OTHER 11-14-2012 SU CHRONIC NANCY NONALCOHOLI C LIVER DISEASE 5932 ACQUIRED 11-14-2012 SU CYST OF NANCY KIDNEY 61468 NUCLEAR 12-29-2011 DAT SCLEROSIS GRE 78073 UNSPECIFIED 12-29-2011 DAT SUBJECTIVE GRE VISUAL DISTURBANCE 17083 OTHER 12-29-2011 DAT VISUAL GRE DISTORTIONS AND ENTOPTIC PHENOMENA 32250 VAGINITIS&V 12-20-2011 JEFFREY SANABRIA ULVOVAGINIT IS DISEASES CLASS ELSW 66800 SECONDARY 11-22-2011 PODIATRIC LOCALIZED FOOT & OSTEOARTHRO ANKLE SPECI SIS LOWER LEG 16125 PAIN IN 11-22-2011 PODIATRIC JOINT, SITE FOOT & ANKLE SPECI UNSPECIFIED 34985 PAIN IN 11-22-2011 PODIATRIC JOINT, FOOT & LOWER LEG ANKLE SPECI 7291 UNSPECIFIED 11-22-2011 PODIATRIC MYALGIA FOOT & AND ANKLE SPECI MYOSITIS V0481 NEED 06-08-2011 A Joshua DUNN PROPHYLACTI PSC C VACCINATION &INOCULATIO N FLU 5999 UNSPECIFIED 05-31-2011 [facility] URETHRA&URI NARY TRACT 32374 URINARY 05-31-2011 [facility] 5990 URINARY [...] STOMACH 1890 MALIGNANT 11-01-2010 NEW NEOPLASM OF [place] [facility] PSC EXCEPT PELVIS 7962 ELEVATED BP 09-09-2010 [facility] WITHOUT DX INC HYPERTENSIO N 82784 DIAB W/O 04-24-2010 [facility] COMP TYPE I MEDICAL [JUV] NOT SUPPLY STATED UNCNTRL 69817 DIVERTICULO 09-30-2009 [facility] [place] SIS OF RADIOLOGY SMALL INTESTINE 591 HYDRONEPHRO 09-30-2009 [facility] SIS H UROLOGY PSC 4280 CONGESTIVE 08-06-2009 [facility] PSC UNSPECIFIED 06390 OSTEOARTHRO 08-06-2009 [facility] UNSPEC L REHAB WHETHER ASSOC PSC GEN/LOC LOWER LEG 4168 OTHER 08-05-2009 NEW CHRONIC [place] [facility] HEART DISEASES 4660 ACUTE 07-29-2009 FIGUEROA, BRONCHITIS SARAH A 27819 HEMARTHROSI 03-27-2009 [facility] S, LOWER [facility] LEG INC 490 BRONCHITIS 02-24-2009 DAT NOT EMERGENCY SPECIFIED SERVICES ACUTE OR ASSOCIATES CHRONIC 54630 SHORTNESS 02-24-2009 [facility] MEDICAL IMAGING ASSOCIATES 7906 OTHER 01-13-2009 [facility] ABNORMAL [facility] BLOOD INC CHEMISTRY 97862 OTHER 12-09-2008 FAYE, VITREOUS SABINA A OPACITIES 5939 UNSPECIFIED 08-13-2008 [facility] [place] DISORDER RADIOLOGY OF KIDNEY AND URETER 27208 NOCTURIA 08-13-2008 [facility] H UROLOGY PSC 06553 URGENCY OF 08-13-2008 [facility] URINATION H UROLOGY PSC V4589 OTHER 08-13-2008 [facility] [place] POSTSURGICA RADIOLOGY L STATUS OTHER 83942 COR 02-07-2008 [place] U[facility] TYPE VESSEL C[facility] QUECHAN/ANA T 65779 CYSTITIS 02-07-2008 [place] CYSTICA [facility] 18600 OTHER 02-07-2008 [facility] SPECIFIED PATHOLOGY TYPES OF ASSOCIATES CYSTITIS V1053 PERSONAL 02-07-2008 [facility] MALIGNANT MEDICAL NEOPLASM CENTER RENAL PELVIS 12185 CORONARY 01-30-2008 [facility] CORONARY PROF SERV ARTERY V1052 PERSONAL 01-23-2008 [...] Procedure DOS Code Location Performer Comment SUSCEPTIB 07662 [facility] LTY STDY 6 [facility] ANTIMICRB INC INC IAL MICRO/AGA R DILUTJ CULTURE 25951 [facility] BACTERIAL 6 [facility] INC INC QUANTTATI VE COLONY COUNT URINE CULTURE 99636 [facility] BCT 6 [facility] ISOL&PRSM INC INC PTV ID ISOLATE EA URINE URNLS DIP 79467 [facility] 6 [facility] STICK/TAB INC INC LET REAGENT AUTO MICROSCOP Y HEMOGLOBI 45225 A Joshua DAMON N 6 SHAUN SU PSC ELY A1C LIPID 26033 A Joshua DAMON PANEL 6 SHAUN CAMERON PSC PROTHROMB 99739 A Joshua DAMON IN TIME 6 SHAUN CAMERON PSC PROTHROMB 51178 A Joshua SANABRIA IN TIME 6 SHAUN COOK PSC HEMOGLOBI 64137 A Joshua SANABRIA N 6 SHAUN SU PSC ELY A1C HOME E0607 ALL ALL BLOOD 6 MALAYSIAN MALAYSIAN GLUCOSE MEDICAL MEDICAL MONITOR LANCETS A4259 ALL ALL PER BOX 6 MALAYSIAN MALAYSIAN OF 100 MEDICAL MEDICAL BLD GLU A4253 ALL ALL TEST/REAG 6 MALAYSIAN MALAYSIAN T [facility] HOME BLD GLU MON-50 NORMAL A4256 ALL ALL LOW AND 6 MALAYSIAN MALAYSIAN HIGH MEDICAL MEDICAL CALIBRATO R SOLUTION/ CHIPS HEMOGLOBI 37447 A Joshua SANABRIA N 6 DUNN MD GLYCOSYLA PSC ELY A1C PROTHROMB 35858 Sam SANABRIA IN TIME 6 SHAUN COOK PSC SPRING-PO A4258 ALL ALL WERED 6 MALAYSIAN MALAYSIAN DEVICE MEDICAL MEDICAL FOR LANCET EACH NORMAL A4256 ALL ALL LOW AND 6 MALAYSIAN MALAYSIAN HIGH MEDICAL MEDICAL CALIBRATO R SOLUTION/ CHIPS BLD GLU A4253 ALL ALL TEST/REAG 6 MALAYSIAN MALAYSIAN T [facility] HOME BLD GLU MON-50 LANCETS A4259 ALL ALL PER BOX 6 [place]AYSIAN [place] [address] MEDICAL MEDICAL REPL GEM A4233 ALL ALL ALKALINE 6 MALAYSIAN MALAYSIAN NOT J MEDICAL MEDICAL CELL GIANNA BG MON OWND PT LANCETS A4259 ALL ALL PER BOX 5 MALAYSIAN [place] [address] MEDICAL MEDICAL BLD GLU A4253 ALL ALL TEST/REAG 5 MALAYSIAN MALAYSIAN T [facility] HOME BLD GLU MON-50 NORMAL A4256 ALL ALL LOW AND 5 MALAYSIAN MALAYSIAN HIGH MEDICAL MEDICAL CALIBRATO R SOLUTION/ CHIPS NORMAL A4256 ALL ALL LOW AND 5 MALAYSIAN MALAYSIAN HIGH MEDICAL MEDICAL CALIBRATO R SOLUTION/ CHIPS BLD GLU A4253 ALL ALL TEST/REAG 5 MALAYSIAN MALAYSIAN T [facility] HOME BLD GLU MON-50 LANCETS A4259 ALL ALL PER BOX [address] [place] [address] MEDICAL MEDICAL REPL GEM A4233 ALL ALL ALKALINE 5 MALAYSIAN MALAYSIAN NOT J MEDICAL MEDICAL CELL GIANNA BG MON OWND PT SPRING-PO A4258 ALL ALL WERED 5 MALAYSIAN MALAYSIAN DEVICE MEDICAL MEDICAL FOR LANCET EACH LANCETS A4259 ALL ALL PER BOX [address] [place] [address] MEDICAL MEDICAL BLD GLU A4253 ALL ALL TEST/REAG 5 MALAYSIAN MALAYSIAN T [facility]ICAL HOME BLD GLU MON-50 NORMAL A4256 ALL ALL LOW AND 5 MALAYSIAN MALAYSIAN HIGH MEDICAL MEDICAL CALIBRATO R SOLUTION/ CHIPS NORMAL A4256 ALL ALL LOW AND 4 MALAYSIAN MALAYSIAN HIGH MEDICAL MEDICAL CALIBRATO SUPPLIE SUPPLIE R SOLUTION/ CHIPS BLD GLU A4253 ALL ALL TEST/REAG 4 MALAYSIAN MALAYSIAN T [facility] HOME BLD SUPPLIE SUPPLIE GLU MON-50 LANCETS A4259 ALL ALL PER BOX [address] [place] [address] MEDICAL MEDICAL SUPPLIE SUPPLIE REPL GEM A4233 ALL ALL ALKALINE 4 MALAYSIAN MALAYSIAN NOT J MEDICAL MEDICAL CELL GIANNA SUPPLIE SUPPLIE BG MON OWND PT SPRING- A4258 ALL ALL WERED 4 MALAYSIAN MALAYSIAN DEVICE MEDICAL MEDICAL FOR SUPPLIE SUPPLIE LANCET EACH LANCETS A4259 ALL ALL PER BOX 4 [place] [address] MEDICAL MEDICAL SUPPLIE SUPPLIE BLD GLU A4253 ALL ALL TEST/REAG 4 MALAYSIAN MALAYSIAN T [facility] HOME BLD SUPPLIE SUPPLIE GLU MON-50 NORMAL A4256 ALL ALL LOW AND 4 MALAYSIAN MALAYSIAN HIGH MEDICAL MEDICAL CALIBRATO SUPPLIE SUPPLIE R SOLUTION/ CHIPS NORMAL A4256 ALL ALL LOW AND 4 MALAYSIAN MALAYSIAN HIGH MEDICAL MEDICAL CALIBRATO SUPPLIE SUPPLIE R SOLUTION/ CHIPS BLD GLU A4253 ALL ALL TEST/REAG 4 MALAYSIAN MALAYSIAN T [facility] HOME BLD SUPPLIE SUPPLIE GLU MON-50 LANCETS A4259 ALL ALL PER BOX 4 [place] [address] MEDICAL MEDICAL SUPPLIE SUPPLIE REPL GEM A4233 ALL ALL ALKALINE 4 MALAYSIAN MALAYSIAN NOT J MEDICAL MEDICAL CELL GIANNA SUPPLIE SUPPLIE BG MON OWND PT SPRING-PO A4258 ALL ALL WERED 4 MALAYSIAN MALAYSIAN DEVICE MEDICAL MEDICAL FOR SUPPLIE SUPPLIE LANCET EACH LANCETS A4259 ALL ALL PER BOX 4 [place] [address] MEDICAL MEDICAL SUPPLIE SUPPLIE BLD GLU A4253 ALL ALL TEST/REAG 4 MALAYSIAN MALAYSIAN T [facility] HOME BLD SUPPLIE SUPPLIE GLU MON-50 NORMAL A4256 ALL ALL LOW AND 4 MALAYSIAN MALAYSIAN HIGH MEDICAL MEDICAL CALIBRATO SUPPLIE SUPPLIE R SOLUTION/ CHIPS NORMAL A4256 ALL ALL LOW AND 3 MALAYSIAN MALAYSIAN HIGH MEDICAL MEDICAL CALIBRATO SUPPLIE SUPPLIE R SOLUTION/ CHIPS BLD GLU A4253 ALL ALL TEST/REAG 3 MALAYSIAN MALAYSIAN T [facility] HOME BLD SUPPLIE SUPPLIE GLU MON-50 LANCETS A4259 ALL ALL PER BOX 3 [place] [address] MEDICAL MEDICAL SUPPLIE SUPPLIE REPL GEM A4233 ALL ALL ALKALINE 3 MALAYSIAN MALAYSIAN NOT J MEDICAL MEDICAL CELL GIANNA SUPPLIE SUPPLIE BG MON OWND PT -24-201 A4258 ALL ALL WERED 3 MALAYSIAN MALAYSIAN DEVICE MEDICAL MEDICAL FOR SUPPLIE SUPPLIE LANCET EACH LANCETS A4259 ALL ALL PER BOX 3 MALAYSIAN MALAYSIAN OF 100 MEDICAL MEDICAL SUPPLIE SUPPLIE BLD GLU A4253 ALL ALL TEST/REAG 3 MALAYSIAN MALAYSIAN T [facility] HOME BLD SUPPLIE SUPPLIE GLU MON-50 NORMAL A4256 ALL ALL LOW AND 3 MALAYSIAN MALAYSIAN HIGH MEDICAL MEDICAL CALIBRATO SUPPLIE SUPPLIE R SOLUTION/ [facility]IPS URINLS 46944 A C A C DIP 3 SHAUN DUNN MD STICK/TAB PSC PSC LET REAGNT NON-AUTO MICRSCPY SPRING-PO A4258 US US WERED 3 [employer] DEVICE E SUPPLY E SUPPLY FOR [...] OF 100 SUPPLY [facility] [facility] 3D 90090 [facility] RENDERING 3 [facility] INC INC W/INTERP& POSTPROC DIFF WORK STATION BLOOD 37511 [facility] COUNT 3 [facility] COMPLETE INC INC AUTO&[place] [address] [facility] LIPASE 3 [facility] INC INC URNLS DIP 38304 [facility] 3 [facility] STICK/TAB INC [place] [address] [facility] AMYLASE 3 [facility] INC INC COMPREHEN 61743 [facility] SIVE 3 [facility] METABOLIC INC INC PANEL PROTHROMB 54318 [facility] IN TIME 3 [place] [address] [facility] ABDOMEN & 3 MEM HOSP [...] HOME [facility] LLC LLC GLU MON-50 EXTERNAL 78780 [facility] ECG 2 [facility] SCANNING INC INC ANALYSIS REPORT XTR ECG 95043 AIMEE YU 2 JR ANDREE JR ANDREE [facility] RHYTHM W/I&R UP TO 48 HRS XTR ECG 19669 [facility] & 48 HR 2 MEM [...] HOME [facility]LD LLC LLC GLU MON-50 RADEX 67827 [facility] AL 2/3 PSC VIEWS ECG 37315 [facility] ROUTINE 2 [facility] ECG INC INC W/LEAST 12 LDS TRCG ONLY W/O I&R ECG 45238 PODIATRIC LEYDI ABDIRASHID ROUTINE 2 FOOT & [...] SHAUN MENDENHALL INFLUENZA PSC VIRUS VACCINE IIV 03511 A C INDIO VACCINE 1 SHAUN COOK ABDIRASHID PRESERV PSC FREE INCREASED AG CONTENT IM CULTURE 53069 [facility] BACTERIAL 1 DIAGNOSTI DIAGNOSTI CS CS QUANTTATI VE COLONY COUNT URINE CULTURE 36415 [facility] BCT 1 [facility]AGNOSTI DIAGNOSTI ISOL&PRSM CS CS PTV ID ISOLATE EA URINE COLLECTIO 55105 A C INDIO N VENOUS 1 SHAUN COOK ABDIRASHID BLOOD PSC VENIPUNCT URE URINLS 05387 A C INDIO DIP 1 SHAUN COOK ABDIRASHID STICK/TAB PSC LET REAGNT NON-AUTO MICRSCPY PROTHROMB 66756 A C A C IN TIME 1 SHAUN DUNN MD PSC PSC ECG 00127 [facility] ROUTINE 1 [facility] ECG INC INC W/LEAST 12 LDS TRCG ONLY W/O I&R URINLS 55419 A C INDIO DIP 1 SHAUN COOK ABDIRASHID STICK/TAB PSC LET REAGNT NON-AUTO MICRSCPY PROTHROMB 69002 A C A C IN TIME 1 SHAUN DUNN MD PSC PSC COLLECTIO 23072 A C INDIO N VENOUS 1 SHAUN COOK ABDIRASHID BLOOD PSC VENIPUNCT URE COLLECTIO 40515 A C JEFFREY ELLY N VENOUS 1 SHAUN COOK BLOOD PSC VENIPUNCT URE PROTHROMB 06717 A C JEFFREY ELLY IN TIME 1 SHAUN COOK PSC WALKER E0143 [place] [facility] 1 HOME HOME WHEELED MEDICAL MEDICAL ADJUSTABL EQUIP EQUIP E/FIXED HEIGHT PROTHROMB 11975 [facility] IN TIME 1 [facility] INC INC COLLECTIO 35335 [facility] N VENOUS 1 [facility] BLOOD INC INC VENIPUNCT URE BLD GLU A4253 [facility] TEST/REAG 1 MEDICAL MEDICAL T STRIPS SUPPLY SUPPLY HOME BLD GLU MON-50 NORMAL A4256 [facility] LOW AND 1 MEDICAL MEDICAL HIGH SUPPLY SUPPLY CALIBRATO R SOLUTION/ CHIPS LANCETS A4259 [facility]ERTY PER BOX 1 MEDICAL MEDICAL OF 100 SUPPLY SUPPLY PROTHROMB 05904 [facility] IN TIME 1 [facility] INC INC COLLECTIO 33032 [facility] N VENOUS 1 [facility] BLOOD INC INC VENIPUNCT URE ECG 16144 [facility] ROUTINE 1 [facility] ECG INC INC W/LEAST 12 LDS TRCG ONLY W/O I&R XTRNL ECG 10703 [facility] [place] 1 [facility] S RHYTHM P P W/I&R UP TO 48 HRS EXTERNAL 52829 [facility] ECG 1 [facility] SCANNING INC INC ANALYSIS REPORT XTRNL ECG 07152 [facility] & 48 HR 1 [facility] RECORDING INC INC PROTHROMB 85043 [facility] IN TIME 1 [facility] INC INC COLLECTIO 29449 [facility] N VENOUS 1 [facility] BLOOD INC INC VENIPUNCT URE COLLECTIO 40862 [facility] N VENOUS 1 [facility] BLOOD INC INC VENIPUNCT URE PROTHROMB 20301 [facility] IN TIME 1 [facility] INC INC COMPREHEN 63545 [facility] SIVE 1 [facility] METABOLIC INC INC PANEL LIPID 74823 [facility] PANEL 1 [facility] INC INC HEMOGLOBI 93001 [facility] N 1 [facility] GLYCOSYLA INC INC ELY A1C PROTHROMB 10083 [facility] IN TIME 0 [facility] INC INC COLLECTIO 80973 [facility] N VENOUS 0 [facility] BLOOD INC INC VENIPUNCT URE REPL [...] MEDICAL MEDICAL OF 100 SUPPLY SUPPLY PROTHROMB 84640 [facility] IN TIME 0 [facility] INC INC COLLECTIO 71279 [facility] N VENOUS 0 [facility] BLOOD INC INC VENIPUNCT URE COLLECTIO 95387 [facility] N VENOUS 0 [facility] BLOOD INC INC VENIPUNCT URE PROTHROMB 03226 [facility] IN TIME 0 [facility] INC INC LANCETS A4259 [facility]ERTY PER BOX 0 MEDICAL MEDICAL OF 100 SUPPLY SUPPLY BLD GLU A4253 [facility] TEST/REAG 0 MEDICAL MEDICAL T STRIPS SUPPLY SUPPLY HOME BLD GLU MON-50 NORMAL A4256 [facility] LOW AND 0 MEDICAL MEDICAL HIGH SUPPLY SUPPLY CALIBRATO R SOLUTION/ CHIPS COLLECTIO 26954 [facility] N VENOUS 0 [facility] BLOOD INC INC VENIPUNCT URE PROTHROMB 71185 [facility] IN TIME 0 [facility] INC INC PROTHROMB 68487 [facility] IN TIME 0 [facility] INC INC COLLECTIO 70343 [facility] N VENOUS 0 [facility] BLOOD INC INC VENIPUNCT URE CULTURE 83789 [facility] BACTERIAL 0 [facility] INC INC QUANTTATI VE COLONY COUNT URINE CULTURE 16958 [facility] BCT 0 [facility] ISOL&PRSM INC INC PTV ID ISOLATE EA URINE SUSCEPTIB 72665 [facility] LTY STDY 0 [facility] ANTIMICRB INC INC IAL MICRO/AGA R DILUTJ COLLECTIO 55895 [facility] N VENOUS 0 [facility] BLOOD INC INC VENIPUNCT URE PROTHROMB 63758 [facility] IN TIME 0 [facility] INC LANCETS A4259 [facility] PER BOX 0 [facility]ICAL [facility]ICAL OF 100 SUPPLY SUPPLY BLD GLU A4253 [facility] TEST/REAG 0 [facility] MEDICAL T STRIPS SUPPLY SUPPLY HOME BLD GLU MON-50 NORMAL A4256 [facility] LOW AND 0 [facility]ICAL HIGH SUPPLY SUPPLY CALIBRATO R SOLUTION/ CHIPS COLLECTIO 85027 [facility] N[facility] N VENOUS 0 [facility] INC VENIPUNCT URE BASIC 45625 [facility] NÚ[facility]Z METABOLIC 0 [facility] PANEL INC INC CALCIUM TOTAL PROTHROMB 59533 [facility] NÚ[facility]Z IN TIME 0 [facility] INC PROTHROMB 80735 [facility] IN TIME 0 [facility] INC COLLECTIO 12492 [facility] N[facility] N VENOUS 0 [facility] B[facility]OD INC INC VENIPUNCT URE PROTHROMB 88551 [facility] IN TIME 0 [facility] INC COLLECTIO 89478 [facility] N VENOUS 0 [facility] INC INC VENIPUNCT URE COLLECTIO 84135 [facility] N VENOUS 0 [facility] B[facility]OD INC INC VENIPUNCT URE PROTHROMB 83324 [facility] N[facility]Z IN TIME 0 [facility] INC PROTHROMB 44726 [facility] NÚ[facility]Z IN TIME 0 [facility] INC COLLECTIO 77177 [facility] N VENOUS 0 [facility] BLOOD INC INC VENIPUNCT URE PROTHROMB 75442 [facility] IN TIME 0 [facility] INC LANCETS A4259 [facility] PER BOX 0 [facility] 100 SUPPLY SUPPLY COLLECTIO 12701 [facility] NÚÑ[facility]Z N VENOUS 0 [facility] BLOOD INC INC VENIPUNCT URE BLD GLU A4253 [facility] TEST/REAG 0 MEDICAL MEDICAL T STRIPS SUPPLY SUPPLY HOME BLD GLU MON-50 COLLECTIO 09507 [facility] N VENOUS 0 [facility] BLOOD VENIPUNCT URE CREATININ 48640 [facility] E BLOOD [address] [facility] [address] PELVIS 028[address] [facility] P[facility]LO, W/O & 0 LTH AN L W/[place] [address] [facility], ABDOMEN 0 LTH AN L W/O & UROLOGY W/CONTRAS PSC T MATERIAL PROTHROMB 68293 [facility] NÚÑEZ IN TIME 0 [facility] INC COLLECTIO 50007 [facility] N VENOUS 0 [facility] BLOOD INC INC VENIPUNCT URE PHYSICAL 45662 [facility] CROSSFIEL THERAPY 9 N[facility] RE[facility] D, EVALUATIO ASSOC DANNITA N PSC THERAPEUT 32849 PROFESSIO CROSSFIEL IC PX 1/> 9 NAL REHAB D, AREAS ASSOC DANNITA EACH 15 PSC MIN EXERCISES XTRNL ECG 68419 [place], & 48 HR 9 [facility] SCAN STOR PSC W/R&I ECG 90958 [place], ROUTINE 9 [facility] ECG CLINIC W/LEAST PSC 12 LDS W/I&R LANCETS A4259 [facility] PER BOX 9 [facility] 100 SUPPLY SUPPLY BLD GLU A4253 [facility] TEST/REAG 9 MEDICAL MEDICAL T STRIPS SUPPLY SUPPLY HOME BLD GLU MON-50 NORMAL A4256 [facility] LOW AND 9 [facility] HIGH SUPPLY SUPPLY CALIBRATO R SOLUTION/ CHIPS COLLECTIO 85366 [facility] NÚ[facility] N VENOUS 9 [facility] B[facility] INC INC VENIPUNCT URE CREATININ 68045 [facility] E BLOOD 9 [facility] INC PROTHROMB 71062 [facility] NÚÑ[facility]Z IN TIME 9 [facility] [facility] PROTHROMB 86482 WILTON NÚÑEZ IN TIME 9 [facility] COLLECTIO 33634 WILTON NÚÑEZ N VENOUS 9 [facility] INC VENIPUNCT URE COLLECTIO 01283 WILTON NÚÑ[facility]Z N VENOUS 9 [facility] VENIPUNCT URE PROTHROMB 33920 WILTON NÚÑ[facility]Z IN TIME 9 [facility] COLLECT[facility] 25620 WILTON NÚÑ[facility]Z N VENOUS 9 [facility] INC VENIPUNCT URE PROTHROMB 02666 WILTON NÚÑ[facility]Z IN TIME 9 [facility] PROTHROMB 90024 WILTON NÚÑ[facility]Z IN TIME 9 [facility] COLLECTIO 01371 WILTON NÚÑEZ N VENOUS 9 [facility] BLOOD INC INC VENIPUNCT URE LANCETS A4259 [facility] OF 100 SUPPLY SUPPLY NORMAL A4256 [facility] LOW AND 9 MEDICAL MEDICAL HIGH SUPPLY SUPPLY CALIBRATO R SOLUTION/ CHIPS BLD GLU A4253 [facility] TEST/REAG 9 MEDICAL MEDICAL T STRIPS SUPPLY SUPPLY HOME BLD GLU MON-50 COLLECTIO 71840 WILTON NÚÑEZ N VENOUS 9 [facility] INC VENIPUNCT URE PROTHROMB 40112 WILTON NÚÑ[facility]Z IN TIME 9 [facility] PROTHROMB 08315 WILTON NÚÑ[facility]Z IN TIME 9 [facility] COLLECTIO 34440 WILTON NÚÑEZ N VENOUS 9 [facility] BLOOD INC INC VENIPUNCT URE COLLECTIO 78680 WILTON NÚÑEZ N VENOUS 9 [facility] BLOOD INC INC VENIPUNCT URE PROTHROMB 32378 WILTON NÚÑEZ IN TIME 9 [facility] PROTHROMB 62861 WILTON NÚÑ[facility]Z IN TIME 9 [facility] COLLECTIO 15146 WILTON NÚÑEZ N VENOUS 9 [facility] BLOOD INC INC VENIPUNCT URE COMPREHEN 11105 WILTON NÚÑEZ SIVE 9 [facility] METABOLIC INC INC PANEL PROTHROMB 89510 WILTON NÚÑEZ IN TIME 9 [facility] INC INC ECG 18092 WILTON NÚÑEZ ROUTINE 9 [facility] ECG INC INC W/LEAST 12 LDS TRCG ONLY W/O I&R NATRIURET 66617 WILTON NÚÑEZ IC 9 [facility] PEPTIDE INC INC BLOOD 28768 WILTON NÚÑEZ GASES ANY 9 [facility] INC INC COMBINATI ON PH PCO2 PO2 CO2 HCO3 RADIOLOGI 52075 Joshua BANG 9 MEDICAL LITA P EXAMINATI IMAGING ON CHEST ASSOCIATE SINGLE S VIEW FRONTAL ECG 61010 DAT WAYNE, ROUTINE 9 EMERGENCY [place] ECG SERVICES O W/LEAST 12 LDS ASSOCIATE I&R ONLY S BLOOD 96997 WILTON NÚÑEZ COUNT 9 [facility] COMPLETE INC INC AUTO&AUTO DIFRNTL WBC THROMBOPL 28436 WILTON NÚÑEZ ASTIN 9 [facility] TIME INC INC PARTIAL PLASMA/WH OLE BLOOD PROTHROMB 06247 WILTON NÚÑEZ IN TIME 9 [facility] COLLECTIO 98664 WILTON NÚÑEZ N VENOUS 9 [facility] BLOOD INC INC VENIPUNCT URE LANCETS A4259 [facility] LIBERTY PER BOX 9 [facility] OF 100 SUPPLY SUPPLY BLD GLU A4253 [facility] TEST/REAG 9 MEDICAL MEDICAL T STRIPS SUPPLY SUPPLY HOME BLD GLU MON-50 NORMAL A4256 [facility] LIBERTY LOW AND 9 MEDICAL MEDICAL HIGH SUPPLY SUPPLY CALIBRATO R SOL[place]/ [place] [address] WILTON NÚÑEZ THYROID 9 [facility] STIMULATI INC INC NG HORMONE TSH COLLECTIO 49576 WILTON NÚÑEZ N VENOUS 9 [facility] BLOOD INC INC VENIPUNCT URE PROTHROMB 60601 WILTON NÚÑEZ IN TIME 9 [facility] INC INC HEPATIC 56946 WILTON NÚÑEZ FUNCTION 9 [facility] PANEL INC INC PROTHROMB 48873 WILTON NÚÑEZ IN TIME 9 [facility] INC INC COLLECTIO 12500 WILTON NÚÑEZ N VENOUS 9 [facility] BLOOD INC INC VENIPUNCT URE OPHTH 57595 FAYE, FAYE, MEDICAL 9 SABINA A SABINA A XM&EVAL COMPRHNSV ESTAB PT 1/> PROTHROMB 54380 WILTON NÚÑEZ IN TIME 9 [facility] INC INC COLLECTIO 20055 WILTON NÚÑEZ N VENOUS 9 [facility] BLOOD INC INC VENIPUNCT URE LANCETS A4259 LIB[facility] LIBERTY PER BOX 9 [facility]ICAL MEDICAL OF 100 SUPPLY SUPPLY BLD GLU A4253 [facility] TEST/REAG 9 MEDICAL MEDICAL T STRIPS SUPPLY SUPPLY HOME BLD GLU MON-50 COLLECTIO 85427 COMBINED COMBINED N VENOUS 9 PHYSICIAN PHYSICIAN BLOOD S LAB S LAB VENIPUNCT URE PROTHROMB 72189 COMBINED COMBINED IN TIME 9 PHYSICIAN PHYSICIAN S LAB S LAB PROTHROMB 09899 COMBINED COMBINED IN TIME 9 PHYSICIAN PHYSICIAN S LAB S LAB COLLECTIO 29895 COMBINED COMBINED N VENOUS 9 PHYSICIAN PHYSICIAN BLOOD S LAB S LAB VENIPUNCT URE COLLECTIO 25990 [facility] N VENOUS 8 [facility] [place] [address] COMMONWEA PABLO, ABDOMEN 8 LTH AN L W/O & UROLOGY W/CONTRAS PSC T MATERIAL URNLS DIP 88038 COMMONWEA COMMONWEA 8 LTH LTH STICK/TAB UROLOGY UROLOGY LET RGNT PSC PSC AUTO W/O MICROSCOP Y CREATININ 32668 [facility] E BLOOD 8 [facility] ECG 19325 AVA MEDELLIN ROUTINE 8 [place] EMMANUEL Saini ECG CLINIC W/LEAST PSC 12 LDS W/I&R ECHO 69357 NEW AVA TRANSTHOR 8 [facility] AC R-T 2D CLINIC CLINIC W/WO PSC PSC M-MODE REC COMP DOP 10331 AVA MEDELLIN ECHOCARD 8 [place] EMMANUEL Saini COLOR CLINIC FLOW PSC VELOCITY MAPPING DOPPLER 04535 NEW AVA ECHOCARD 8 [facility] PULSE CLINIC CLINIC WAVE PSC PSC W/SPECTRA L DISPLAY PROTHROMB 72675 COMBINED COMBINED IN TIME 8 PHYSICIAN PHYSICIAN S LAB S LAB COLLECTIO 01897 COMBINED COMBINED N VENOUS 8 PHYSICIAN PHYSICIAN BLOOD S LAB S LAB VENIPUNCT URE SPRING-PO A4258 LIBERTY LIBERTY WERED 8 MEDICAL DAIRY CONSULTANT SUPPLY SUPPLY FOR LANCET EACH LANCETS A4259 [facility] LIBERTY PER BOX 8 [facility]ICAL MEDICAL OF 100 SUPPLY SUPPLY BLD GLU A4253 [facility] TEST/REAG 8 MEDICAL MEDICAL T STRIPS SUPPLY SUPPLY HOME BLD GLU MON-50 NORMAL A4256 [facility] LIBERTY LOW AND 8 MEDICAL MEDICAL HIGH SUPPLY SUPPLY CALIBRATO R SOLUTION/ CHIPS CYSTOURET 93521 RONALDO HIGGINS HROSCOPY 8 [facility]AL [facility] WITH MEDICAL [place]ICAL [place] [address] [facility] TANOUS, SURG 8 EDWARD J PATHOLOGY PATHOLOGY GROSS&GUILLERMO ASSOCIATE ROSCOPIC S EXAM INJECTION J2250 RONALDO HIGGINS 8 [facility]AL [facility] PER CENTER CENTER 1 MG INJECTION J3010 RONALDO HIGGINS FENTANYL 8 [facility] REGIONAL [facility]ICAL MEDICAL 0.1 MG CENTER CENTER INJECTION J2405 RONALDO HIGGINS 8 REGIONAL [facility] ON HCL CENTER CENTER PER 1 MG ANES 03004 COMMONWEA ANDREY, TRANSURET 8 [facility] HRAL ANESTHESI V W/URETHRO A PSC CYSTOSCOP Y NOS GLUC BLD 22349 RONALDO HIGGINS GLUC MNTR 8 [facility]AL [facility] DEV MEDICAL MEDICAL CLEARED CENTER CENTER FDA SPEC HOME USE COMPREHEN 22958 WILTON NÚÑEZ SIVE 8 [facility]OSP METABOLIC INC INC PANEL ECG 76889 WILTON NÚÑEZ ROUTINE 8 [facility] ECG INC INC W/LEAST 12 LDS TRCG ONLY W/O I&R [facility]IOLOGI 45[facility] MCKENZIE EXAM 8 MEDICAL LITA P CHEST 2 IMAGING VIEWS ASSOCIATE FRONTAL&L S ATERAL ECG 57090 RAÚL FUENTES 8 [facility] W/LEAST PROF SERV 12 LDS I&R ONLY PROTHROMB 54445 WILTON NÚÑEZ IN TIME 8 [facility] INC INC COLLECTIO 94812 WILTON NÚÑEZ N VENOUS 8 [facility] BLOOD INC INC VENIPUNCT URE THROMBOPL 79579 WILTON NÚÑEZ ASTIN 8 [facility] TIME INC INC PARTIAL PLASMA/WH OLE BLOOD BLOOD 12966 WILTON NÚÑEZ COUNT 8 [facility]P COMPLETE INC INC AUTO&[place] [address] [facility] MANJINDER SHER, ABDOMEN 8 RADIOLOGY SON M W/O & W/CONTRAS T MATERIAL CT PELVIS 45721 CNTRL MANJINDER SHER, W/O & 8 RADIOLOGY SON M W/CONTRAS T MATERIAL BLD GLU A4253 [facility] 8 [facility] PHARMACY T STRIPS 5300 7214 HOME BLD GLU MON-50 LANCETS A4259 [facility] PER BOX 8 [facility] PHARMACY OF 100 5400 3933 [facility] [place] [address] NEYDA FAYE, [facility] 8 SABINA A SABINA A XM&EVAL COMPRHNSV ESTAB PT 1/> Encounters Encounter Start End Date Code Location Performer Type Date EMERGENCY 82170 UZIEL HUGHES [address] [facility] T VISIT MODERATE SEVERITY EMERGENCY 39868 WILTON [address] [facility] T VISIT LIMITED/M [facility] WILTON - 6 6 [facility] OFF[facility] 17814 A Joshua DAMON OUTPATIEN 6 6 SHAUN CAMERON T VISIT PSC 15 MINUTES OFFICE 58917 A Joshua MURPHY ELLY OUTPATIEN 6 6 SHAUN COOK T VISIT 5 PSC MINUTES OFFICE 39389 A Josuha MURPHY ELLY OUTPATIEN 6 6 SHAUN COOK T VISIT PSC 15 MINUTES OFFICE 43032 A Joshua MURPHY ELLY OUTPATIEN 6 6 SHAUN COOK T VISIT PSC 15 MINUTES OFFICE 72266 A Joshua MURPHY ELLY OUTPATIEN 5 5 SHAUN COOK T VISIT 5 PSC MINUTES OFFICE 61991 A Joshua MURPHY ELLY OUTPATIEN 5 5 SHAUN COOK T VISIT 5 PSC MINUTES EMERGENCY 99058 WILTON MARCUS 5 5 [facility] T VISIT P MODERATE SEVERITY OFFICE 04115 A Joshua MURPHY ELLY OUTPATIEN 5 5 SHAUN COOK T VISIT 5 PSC MINUTES OFFICE 45416 A Joshua MURPHY ELLY OUTPATIEN 5 5 SHAUN COOK T VISIT 5 PSC MINUTES OFFICE 24217 A C FIELD NICE OUTPATIEN 4 4 SHAUN COOK T VISIT PSC 15 MINUTES OFFICE 54656 A C KILPELA OUTPATIEN 4 4 SHAUN FRANCIS T VISIT PSC 15 MINUTES OFFICE 48857 A C JEFFREY ELLY OUTPATIEN 4 4 SHAUN COOK T VISIT 5 PSC MINUTES OFFICE 78723 A C JEFFREY ELLY OUTPATIEN 4 4 SHAUN COOK T VISIT 5 PSC MINUTES OFFICE 88386 JEFFREYELENI SANABRIA JEFFREY ELLY OUTPATIEN 4 4 T VISIT 5 MINUTES OFFICE 25997 JEFFREYELENI MARTINEZES ELLY OUTPATIEN 4 4 T VISIT 25 MINUTES OFFICE 70711 JEFFREYELENI SANABRIA JEFFREY ELLY OUTPATIEN 4 4 T VISIT 5 MINUTES OFFICE 63584 A C JEFFREY ELLY OUTPATIEN 3 3 SHAUN COOK T VISIT PSC 15 MINUTES OFFICE 77122 MARTELL MOURA OUTPATIEN 3 3 NEENA NEENA T NEW 30 MINUTES OFFICE 16972 A C JESUSPELA OUTPATIEN 3 3 SHAUN FRANCIS T VISIT PSC 25 MINUTES OFFICE 76567 A C JEFFREY ELLY OUTPATIEN 3 3 SHAUN COOK T VISIT PSC 10 MINUTES [facility]PITAL [facility] - 3 3 [facility] OUTPATIEN INC T EMERGENCY 57414 WILTON 3 3 [facility] DEPARTMEN INC T VISIT LOW/MODER SEVERITY OFFICE 52804 JEFFREY NORIEGA ELLY OUTPATIEN 3 3 T VISIT 25 MINUTES HOSPITAL [facility] - 2 2 [facility] OUTPATIEN INC T OFFICE 20376 PODIATRIC LEYDI ABDIRASHID OUTPATIEN 2 2 FOOT & T VISIT ANKLE 25 SPECI MINUTES [facility]OSPITAL [facility] - 2 2 [facility] OUTPATIEN INC T OFFICE 92268 A C JEFFREY ELLY OUTPATIEN 1 1 SHAUN COOK T VISIT PSC 15 MINUTES OFFICE 08626 A C INDIO OUTPATIEN 1 1 SHAUN MENDENHALL T VISIT 5 PSC MINUTES [facility] - 1 1 [facility] OUTPATIEN INC OFFICE 96361 A C INDIO OUTPATIEN 1 1 SHAUN MENDENHALL T VISIT 5 PSC MINUTES OFFICE 06656 A C JEFFREY ELLY OUTPATIEN 1 1 SHAUN COOK T NEW 30 PSC MINUTES OFFICE 47743 A C JEFFREY ELLY OUTPATIEN 1 1 SHAUN COOK T VISIT PSC 15 MINUTES [facility]OSPITAL [facility] - 1 1 [facility] - 1 1 [facility] - 1 1 [facility] OFFICE 55536 AVA HOLLEY ABDIRASHID OUTPATIEN 1 1 ENOC VISIT CLINIC 25 PSC MINUTES [facility]OSPITAL [facility] - 1 1 [facility] - 1 1 [facility] WILOTN - 0 0 [facility] OUTPATI[facility] W[facility] - 0 0 [facility] OUTPATIEN INC [facility] - 0 0 [facility] - 0 0 [facility] OUTPATIEN INC [facility] - 0 0 [facility]PATIEN [facility] - 0 0 [facility]PAT[facility] W[facility] - 0 0 [facility] OUTPATIEN INC OFFICE 32510 AVA HOLLEY, OUTPATIEN 0 0 ENOC STINSON T VISIT CLINIC 15 PSC MINUTES [facility]OSPITAL [facility] - 0 0 [facility]PATIEN [facility] - 0 0 [facility]PATI[facility] - 0 0 [facility]PATI[facility] - 0 0 [facility]PATI[facility] - 0 0 [facility]PATI[facility] - 0 0 [facility] OUTPATI[facility] OFFICE 62319 VIRGINIA CONNORSEN 0 0 [facility] Vilchis VISIT UROLOGY 40 PSC MINUTES [facility] - 0 0 [facility] WILTON - 0 0 [facility] OUTPATIEN [facility] WIL[facility] - 9 9 [facility] OFFICE 75476 BURTON HERNANDES 9 9 ENOC Saini VISIT CLINIC 10 PSC MINUTES OFFICE 70182 [place] HERNANDES 9 9 ENOC Saini VISIT CLINIC 15 PSC MINUTES OFFICE 90122 CAROLINA FIGUEROA OUTPATIEN 9 9 SARAH Vargas T VISIT 15 MINUTES [facility] - 9 9 [facility] - 9 9 [facility] OUTPATI[facility] W[facility] - 9 9 [facility] OUTPATIEN [facility] WILTON - 9 9 [facility] OUTPATIEN [facility] W[facility]TON - 9 9 [facility] OUTPATIEN [facility] WILTON - 9 9 [facility] OUTPATIEN [facility] - 9 9 [facility]PAT[facility] - 9 9 [facility] W[place] - 9 9 [facility] 46496 CAROLINA FIGUEROA OUTPATIEN 9 9 SARAH Vargas T VISIT 15 MINUTES HOSPITAL [facility] - 9 9 [facility]ENC[facility] 58658 DAT WAYNE, DEPT 9 9 EMERGENCY SHOSHANA VISIT SERVICES O HIGH SEVERITY& ASSOCIATE THREAT S FUN EMERGENCY 69558 WILTON 9 9 [facility] VISIT MODERATE SEVERITY [facility] WILTON - 9 9 [facility] W[facility] - 9 9 [facility] - 9 9 [facility] W[facility] - 9 9 [facility] 40697 BURTON CONNORS 8 8 [facility] L T VISIT UROLOGY 40 PSC MINUTES [facility] - [address] [facility] T OFFICE 06732 JINNY STEARNS OUTPATIEN 8 8 ESTUARDO MARTE T VISIT 40 MINUTES [facility] RONALDO - 8 8 [facility] WILTON - 8 8 [facility]
--- OUTSIDE RECORDS SUMMARY | 2017-01-14 10:15 | External Medical Summary Rpt ---
Author Author NANY Dickey, NANY Dickey Organization [employer] Address Unknown Phone Unavailable
--- OUTSIDE RECORDS SUMMARY | 2017-01-14 10:15 | External Medical Summary Rpt ---
Demographics Preferred Language Panamanian Marital Status Unknown Episcopal Affiliation Unknown Race Unknown Ethnic Group Unknown Author Author , Organization [employer] Address Unknown Phone Unavailable Purpose Continuity of Care Document - through 2016 Immunization No patient found.
--- OUTSIDE RECORDS SUMMARY | 2017-01-14 10:15 | External Medical Summary Rpt ---
Demographics Preferred Language Indonesian Marital Status Unknown Roman Catholic Affiliation Unknown Race Unknown Ethnic Group Unknown Author Author , Organization [employer] Address Unknown Phone Unavailable Purpose Continuity of Care Document - through 2016 Immunization No patient found.
--- NOTE | 2017-01-14 10:18 | Urgent Treatment Center Report ---
History of Present Issue Date/Time Seen by Provider 01/14/17 1017 Visit Reason Pt arrived:Wheelchair Presenting Problem:PT STATES BURNING WITH URINATION FOR PAST COUPLE OF DAYS. STATES HISTORY OF UTIS Location if Accident: Onset of symptoms date/time:/ or onset unknown for:MEDICAL HX UNKNOWN Have you (or family members/close friends) recently traveled outside the [place]? N If Yes, where/when: Have you had exposure to infectious disease within the past month? TB? Other? Specify: Source patient, RN notes reviewed, family Exam Limitations no limitations Comment Patient has one week history of dysuria. Mostly wheelchair bound due to osteoarthritis. Has a history of UTIs. No fever. On coumadin. ALLERGIES Coded Allergies: No Known Allergies (08/11/16) Home Medications Reported Medications Warfarin Sodium (Warfarin 3MG) 3 MG PO DAILY #30 Amlodipine Besylate (Amlodipine Besylate) 10 MG PO DAILY #30 LEVOTHYROXINE SOD (Synthroid) 0.1 MG PO DAILY Lisinopril 20 MG PO DAILY Labetalol Hcl (Labetalol) 200 MG PO BID Sitagliptin Phosphate (Januvia 100MG) 100 MG PO DAILY #30 Furosemide (Furosemide) 20 MG PO DAILY #30 Glipizide 10 MG PO BID Diazepam 5 MG PO QID #120 TAB History Medical History General CAD? No Angina: No [place]: No Hypertension? Yes Hyperlipidemia? No CHF? Yes DVT? No PE? No COPD? No Asthma? No Anemia? No GERD? Yes Gastric ulcers? No GI Bleed? No Hernia? Yes Thyroid Problems? Yes Hypothyroidism? Yes CVA? No Seizures? No Diabetes? Yes Insulin Dependent: No Insulin Pump: No Home FSBS? No Renal Insuffiency? No UTI? Yes Stones? No GB Disease: No Nephritic Syndrome? No Asplenia? No Hepatitis? No Sickle Cell Disease? No Arthritis? No Migraines? No Cataracts? No Glaucoma? No MRSA? No HIV? No TB? No Anxiety? Yes Depression? 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 Physical Exam Vital Signs Vital Signs Date Time Temp Pulse Resp B/P Pulse O2 O2 Flow FiO2 Ox Delivery Rate 01/14 1009 98.7 103 18 122/65 97 General Appearance normal appearance, no apparent distress Respiratory Status No: respiratory distress, trachea midline, chest symmetrical. Lung Sounds bilateral: normal breath sounds, lungs clear. Cardiovascular normal exam, regular rate/rhythm, no peripheral edema, no gallop, no JVD, no murmur, no rub Extremities non-tender, normal range of motion, normal inspection, normal capillary refill Neurologic alert, normal exam, oriented x 3 Medical Decision Making LABS/Meds/Orders Pt receiving controlled substance in ED? No Results/Orders Laboratory Tests 01/14/17 1016: Urine Color YELLOW, Urine Appearance Clear, Urine pH 6.5, Ur Specific [place] 1.010, Urine Protein NEGATIVE, Urine Ketones NEGATIVE, Urine Blood NEGATIVE, Urine Nitrate NEGATIVE, Urine Bilirubin NEGATIVE, Urine Urobilinogen 0.2, Ur Leukocyte Esterase 1+ H, Urine Glucose NEGATIVE Orders Procedure Date/time Status [facility] URINE DIPSTICK 01/14 1016 Complete Departure Departure Time of Disposition 1112 Disposition DC Home or Self Care(routine) Clinical Impression Primary Impression: UTI (urinary tract infection) Qualifiers: Urinary tract infection type: acute cystitis Hematuria presence: without hematuria Qualified Code: N30.00 - Acute cystitis without hematuria Secondary Impressions: Anticoagulated on Coumadin Condition STABLE Referrals Xavier Blancas MD (Family): 2 Days-Call Office Patient Instructions DI for Urinary Tract Infection (UTI) Additional Instructions F/U with Dr Blancas for culture results and possibly check INR Discharge Counseling Counseled pt/family regarding diagnosis, test results, medications/RX, home care, follow up needs Prescriptions Current Visit Scripts Ciprofloxacin HCl (Cipro 500MG TAB) 500 MG PO BID #10 TAB at 1115
[2017-01-14 11:10] LABS: URINE BILIRUBIN - DIPSTICK NEGATIVE (NEG); URINE BLOOD NEGATIVE (NEG)
[2017-01-14] MEDS ORDERED: CIPRO 500MG TA500 MG PO (11:14)
[2017-01-14 11:57] VITALS: BP 122/65
== END 2017-01-14 11:57 | disposition home or self-care (01) ==
LOC: ER 09:40 → UTC 09:54 → ER 09:54 → UTC 11:57
PROVIDERS: Emergency Medicine
DX: N30.00 Acute cystitis without hematuria (principal); I10 Essential (primary) hypertension; E11.9 Type 2 diabetes mellitus without complications; M17.0 Bilateral primary osteoarthritis of knee; Z79.01 Long term (current) use of anticoagulants